=== PATIENT | female | born 1960 | race Caucasian/White ===

== ENCOUNTER → 2018-03-28 12:35 | Outpatient (CLI) | payer OTHER, SELFPAY ==
[2018-03-30 13:27] LABS: HPV Reflexed? NOT INDICATED
== END ==
PROVIDERS: Referring Provider Nurse Practitioner Adult Health; Visit Provider Nurse Practitioner Adult Health
DX: Z01.419 Encounter for gynecological examination (general) (routine) without abnormal findings (principal)
CPT/HCPCS: 88175; G0145

== ENCOUNTER → 2022-04-15 | Outpatient (CLI) | payer BC, SELFPAY ==
--- NOTE | 2022-04-15 16:59 | MRI_ITS ---
STUDY: MRI BRAIN WITH AND WITHOUT CONTRAST REASON FOR EXAM: Female, 61 years old. new occipital headache X 1 MONTH TECHNIQUE: Standardized multiplanar fat and water weighted pulse sequences were obtained. IV 19ml Clariscan was administered for the contrast portion of the examination. COMPARISON: None. FINDINGS: Normal size of the ventricles and extra-axial spaces for the patient''s age. Normal white matter tracts of the supratentorial brain. Normal bilateral basal ganglia. Normal thalami. There is no extra-axial fluid accumulation. Normal flow voids within the major intracranial circulation suggesting patency by spin echo criteria. Normal venous enhancement. There is no enhancing intra-axial or extra-axial abnormality. Normal sella turcica, pituitary gland, infundibular stalk, optic chiasm and hypothalamus. Normal tectal plate and pineal gland. Normal midbrain, john and medulla. Normal cerebellum. Normal basal cisterns. Normal bilateral temporal bones. Normal bilateral internal auditory canals. No demonstrated orbital abnormality, within the constraints of a routine brain study. Normal visualized paranasal sinuses. Normal calvarium and skull base. Normal visualized soft tissue structures. Normal visualized upper cervical spine. MRI/Brain W/WO Contrast IMPRESSION: Normal unenhanced and enhanced MRI of the brain. Electronically Signed: Lane Chin MD at 21:16 EDT ,
[2022-04-15 17:45] LABS: CREATININE FINGERSTICK < 0.9 mg/dL (0.55-1.02); EGFR FINGERSTICK > 60.0000 mL/min (>60)
== END | disposition home or self-care (01) ==
PROVIDERS: PCP Family Medicine; Visit Provider Family Medicine
DX: R51.9 Headache, unspecified (principal)
CPT/HCPCS: 70553; A9575

== ENCOUNTER → 2025-03-01 | Outpatient (CLI) | payer BC, SELFPAY ==
--- OUTSIDE RECORDS SUMMARY | 2025-03-01 20:35 | XMS RPT_ITS | CCD ---
Author Organization [facility] Care Team Providers Care Business Executive Name Role Phone KALIN GARCIA, DR CHAVEZ Primary Care Physician Nasrin PT, Keily Unavailable Unavailable Aruna Bar Attending Unavailable Aruna Bar Primary Care Unavailable LINO HARPER DO Attending Unavailable KALIN GARCIA, DR CHAVEZ Primary Care Unavailable IRAJ DOZIER, EHSAN Attending Unavailbecka BAR MD, DR CHAVEZ Primary Care Unavailable LINO HARPER DO Attending Unavailable KALIN GARCIA, DR CHAVEZ Primary Care Unavailable LINO HARPER DO Attending Unavailable KALIN GARCIA, DR CHAVEZ Primary Care Unavailable LINO HARPER DO Attending Unavailable KALIN GARCIA, DR CHAVEZ Primary Care Unavailable CINTHYA GARCIA, CARMELA Consulting Unavailable IRAJ DOZIER, EHSAN Attending Unavailbecka BAR MD, DR CHAVEZ Primary Care Unavailable Physicians, [facility] Care Provide r SELF Referring Unavailable TUYET COURTNEY Attending Unavailable KECIA DUVAL MD Attending Unavailable KALIN GARCIA, DR CHAVEZ Primary Care Unavailable MARISABEL BLANCAS MD Admitting Unavailable LINO HARPER DO Attending Unavailable JULIAN MAIER MD Primary Care Unavailable JACOB GARCIA, DR COOKIE Avendaño Attending Unavailbecka BAR MD, DR CHAVEZ Primary Care Unavailable DAPHNEY DUQUE DO Attending Unavailable KALIN GARCIA, DR CHAVEZ Primary Care Unavailable RANDY PIERCE, MS TUYET Gomez Attending Unamatty BAR MD, DR CHAVEZ Primary Care Unavailable KALIN GARCIA, DR CHAVEZ Primary Care Unavailable ALKA CUNNINGHAM III, MD Attending Unavail able KALIN GARCIA, DR CHAVEZ Primary Care Unavailable JULIA BEEBE PA-C Attending Unavailable Allergies Allergy Classification Reported Allergen(s) Allergy Type Date of Onset Reaction(s) Facility (12 sources) Contrast media; Translations: [iodinated radiocontrast agents] Drug allergy [facility] (2 sources) Iodine; Translations: [IODINE] Drug Allergy 3 Rash [facility] (2 sources) traMADol; Translations: [TRAMADOL] Drug Allergy 5 Other: See Comments [facility] Medications Current Medications Medication Drug Class(es) Dates Sig (Normalized) Sig (Original) acetaminophen 1000 mg oral tablet (3 sources) Start: 01-16-2025 take 1 dose by mouth every eight hours as needed for pain Tylenol Dose : 1,000 mg =, Oral, q8h, PRN as needed for pain, 0 Refill(s) Start Date: 01/16/25 Status: Ordered Medication Dispense Status: Completed Total Allowed Fills: 1 Fills Dispensed: 0 acetaminophen 300 mg / HYDROcodone bitartrate 5 mg oral tablet (5 sources) Opioid Agonist Start: 01-18-2025 End: 01-22-2025 take 1 tablet by mouth three times daily as needed for pain acetaminophen-hyd rocodone 300 mg-5 mg oral tablet Dose = 1 tab(s), Oral, TID, PRN for chest pain, X 4 day(s), # 12 tab(s), 0 Refill(s), Pharmacy: [facility], Acute pulmonary embolism, 167.6, cm, 01/16/25 21:17:00 EDT, Height, 97.9, kg, 01/16/25 21:17:00 EDT, Dosing Weight Start Date: 01/18/25 Stop Date: 01/22/25 Status: Ordered Quantity: 12.0 Unit: tab(s) Repeat number: 1 Indications: Other pulmonary embolism without acute cor pulmonale; Start: 01-18-2025 Williamson 325- 5 m g oral tablet Dose = 2 tab(s), Oral, q4h, PRN Pain, scale 7-10, 0 Refill(s), 97.9 Start Date: 01/18/25 Status: Ordered Medication Dispense Status: Completed Total Allowed Fills: 1 Fills Dispensed: 0 Start: 01-16-2025 acetaminophen- hydrocodone 300 mg-5 mg oral tablet Dose = 1 tab(s), Oral, q6h, PRN for pain, tab(s), 0 Refill(s), 98.9 Start Date: 01/16/25 Status: Ordered Repeat number: 1 Start: 04-29-2023 End: 05-06-2023 Williamson 325- 5 mg oral tablet Dose = 1 tab(s), Oral, q6h, PRN for pain, May take 1-2 tablets / dose, X 7 day(s), # 28 tab(s), 0 Refill(s), Pharmacy: [id number], Trimalleolar fracture of left ankle Post-op pain, 170.2, cm, 04/29/23 9:16:00 EDT, Height, 105, kg, 04/29/23 9:16:00 EDT, Dosing Weight Start Date: 04/29/23 Stop Date: 05/06/23 Status: Ordered albuterol MDI (90 mcg/inh) CFC free inhalation aerosol (1 source) Start: 01-31-2025 take 2 puff(s) by inhalation every four hours albuterol MDI (90 mcg/inh) CFC free inhalation aerosol 2 puff(s), Inhalation, q4h, # 1 EA, 0 Refill(s) Start Date: 01/31/25 Status: Ordered Medication Dispense Status: Completed Quantity: 1.0 Unit: EA Total Allowed Fills: 1 Fills Dispensed: 0 apixaban 5 mg oral tablet (2 sources) Factor Xa Inhibitor Start: 01-18-2025 End: 02-17-2025 Eliquis Starter Pack for Treatment of DVT and PE 5 mg oral tablet [10mg BID x 7days-then 5mg BID], Oral, BID, # 74 tab(s), 0 Refill(s), DVT Treatment Dosing, Pharmacy: [facility], 167.6, cm, 01/16/25 21:17:00 EDT, Height, 97.9, kg, 01/16/25 21:17:00 EDT, Dosing Weight Start Date: 01/18/25 Stop Date: 02/17/25 Status: Ordered Medication Dispense Status: Completed Quantity: 74.0 Unit: tab(s) Total Allowed Fills: 1 Fills Dispensed: 0 aspirin 81 mg oral tablet (1 source) Platelet Aggregation Inhibitor, Nonsteroidal Anti-inflammatory Drug Start: 01-16-2025 take 1 dose by mouth twice daily aspirin Dose : 81 mg =, Oral, BID, 0 Refill(s) Start Date: 01/16/25 Status: Ordered Repeat number: 1 azithromycin 250 mg oral tablet (1 source) Macrolide Antimicrobial Start: 09-12-2024 End: 09-17-2024 take 2 tablets by mouth once daily, then take 1 tablet by mouth once daily azithromycin (ZITHROMAX) 250 mg tablet Indications: Sinobronchitis Take 2 tablets by mouth once daily for 1 day, THEN 1 tablet once daily for 4 days. 6 tablet 09/12/2024 09/17/2024 Active doxycycline hyclate 100 mg oral capsule (1 source) Tetracycline-class Drug Start: 01-31-2025 End: 02-07-2025 doxycycline hyclate 100 mg oral capsule Dose : 100 mg = 1 cap(s), Oral, BID, X 7 day(s), # 14 cap(s), 0 Refill(s), 02/07/25 9:30:00 AM EDT, 100 Start Date: 01/31/25 Stop Date: 02/07/25 Status: Ordered Medication Dispense Status: Completed Quantity: 14.0 Unit: cap(s) Total Allowed Fills: 1 Fills Dispensed: 0 ibuprofen 400 mg oral tablet (2 sources) Nonsteroidal Anti-inflammatory Drug Start: 01-18-2025 End: 01-22-2025 ibuprofen 400 mg oral tablet Dose : 400 mg = 1 tab(s), Oral, BID, PRN mild to moderate pain, X 4 day(s), # 8 tab(s), 0 Refill(s), 01/22/25 11:11:00 AM EDT, Pharmacy: [facility], 167.6, cm, 01/16/25 21:17:00 EDT, Height, kg, 01/16/25 21:17:00 EDT, Dosing Weight Start Date: 01/18/25 Stop Date: 01/22/25 Status: Ordered Quantity: 8.0 Unit: tab(s) Repeat number: 1 Start: 07-23-2025 take 1 dose by mouth every eight hours as needed for pain ibuprofen Dose : 800 mg =, Oral, q8h, PRN as needed for pain, 0 Refill(s) Start Date: 01/16/25 Status: Ordered Repeat number: 1 naproxen sodium 220 mg oral tablet (10 sources) Nonsteroidal Anti-inflammatory Drug Start: 02-28-2020 Aleve 220 mg oral tablet Dose : 440 mg = 2 tab(s), Oral, BID, PRN as needed for pain Start Date: 02/28/20 Status: Ordered Repeat number: 1 ondansetron 4 mg oral tablet (7 sources) Serotonin-3 Receptor Antagonist Start: 04-29-2023 Zofran 4 mg oral tablet Dose : 4 mg = 1 tab(s), Oral, q6h, PRN Nausea/Vomiting, # 20 tab(s), 0 Refill(s) Start Date: 04/29/23 Status: Ordered Quantity: 20.0 Unit: tab(s) Repeat number: 1 pantoprazole 40 mg delayed release oral tablet (2 sources) Proton Pump Inhibitor Start: 01-18-2025 End: 02-17-2025 Protonix 40 mg oral enteric coated tablet Dose : 40 mg = 1 tab(s), Oral, qDayAC, # 30 tab(s), 0 Refill(s), Pharmacy: [facility], 167.6, cm, 01/16/25 21:17:00 EDT, Height, kg, 01/16/25 21:17:00 EDT, Dosing Weight Start Date: 01/18/25 Stop Date: 02/17/25 Status: Ordered Medication Dispense Status: Completed Quantity: 30.0 Unit: tab(s) Total Allowed Fills: 1 Fills Dispensed: 0 predniSONE 20 mg oral tablet (1 source) Start: 01-31-2025 End: 02-04-2025 predniSONE 20 mg oral tablet Dose : 60 mg = 3 tab(s), Oral, qDay, X 4 day(s), # 12 tab(s), 0 Refill(s), 02/04/25 9:30:00 AM EDT Start Date: 01/31/25 Stop Date: 02/04/25 Status: Ordered Medication Dispense Status: Completed Quantity: 12.0 Unit: tab(s) Total Allowed Fills: 1 Fills Dispensed: 0 Completed/Discontinued Medications Medication Drug Class(es) Dates Sig (Normalized) Sig (Original) 0.4 ml enoxaparin sodium 100 mg/ml prefilled syringe (1 source) Low Molecular Weight Heparin Start: 04-29-2023 End: 05-13-2023 inject 0.4 mL by subcutaneous injection once daily Lovenox 40 mg/0.4 mL injectable solution Dose : 40 mg = 0.4 mL, Subcutaneous, qDay, X 14 day(s), # 5.6 mL, 0 Refill(s), 05/13/23 10:19:00 AM EST, Pharmacy: [facility] #[id number], 170.2, cm, 04/29/23 9:16:00 EDT, Height, kg, 04/29/23 9:16:00 EDT, Dosing Weight Start Date: 04/29/23 Stop Date: 05/13/23 Status: Ordered gabapentin (4 sources) Anti-epileptic Agent Start: 01-16-2025 gabapentin Dose : 300 mg =, Oral, qHS, 0 Refill(s), 98.9 Start Date: 01/16/25 Status: Ordered Medication Dispense Status: Completed Total Allowed Fills: 1 Fills Dispensed: 0 Start: 01-16-2025 gabapentin Dos e : 300 mg =, Oral, qHS, 0 Refill(s), 98.9 Start Date: 01/16/25 Status: Ordered Repeat number: 1 Start: 07-30-2024 gabapentin (NE URONTIN) 300 mg capsule 07/30/2024 Active Problems Active Problems Problem Classification Problem Date Documented Date Episodic/Chronic Allergic reactions (1 source) Radiographic dye allergy status; Translations: [Radiographic dye allergy status] Onset: 01-16-2025 Episodic Cardiac dysrhythmias (1 source) Tachycardia, unspecified; Translations: [Tachycardia, unspecified] Onset: 01-16-2025 Episodic Headache; including migraine (1 source) Headache; Translations: [Headache, unspecified] Episodic Headache; including migraine (1 source) Headache; including migraine; Translations: [Headache, unspecified] Onset: 04-21-2022 Osteoarthritis (3 sources) Osteoarthritis of hip; Translations: [Unilateral primary osteoarthritis, right hip] Onset: 10-01-2024 Chronic Other aftercare (1 source) Follow-up orthopedic assessment; Translations: [Aftercare following joint replacement surgery] Chronic Other aftercare (1 source) Aftercare following joint replacement surgery; Translations: [Aftercare following joint replacement surgery] Onset: 10-01-2024 Chronic Other connective tissue disease (1 source) Hip joint prosthesis present; Translations: [Presence of right artificial hip joint] Chronic Other connective tissue disease (1 source) Presence of right artificial hip joint; Translations: [Presence of right artificial hip joint] Onset: 10-01-2024 Chronic Other connective tissue disease (1 source) Pain in left leg; Translations: [Pain in left leg] Onset: 01-16-2025 Episodic Other connective tissue disease (1 source) Other specified soft tissue disorders; Translations: [Other specified soft tissue disorders] Onset: 01-16-2025 Episodic Other injuries and conditions due to external causes (1 source) Personal history of (healed) traumatic fracture; Translations: [Personal history of (healed) traumatic fracture] Onset: 01-16-2025 Episodic Other lower respiratory disease (1 source) Cough; Translations: [Cough, unspecified] Onset: 01-31-2025 Episodic Other lower respiratory disease (1 source) Shortness of breath; Translations: [Shortness of breath] Onset: 01-16-2025 Episodic Other nervous system disorders (1 source) Other acute postprocedural pain; Translations: [Other acute postprocedural pain] Onset: 01-16-2025 Episodic Other upper respiratory infections (1 source) Chronic sinusitis; Translations: [Chronic sinusitis, unspecified] 09-12-2024 Chronic Pulmonary heart disease (3 sources) Other pulmonary embolism without acute cor pulmonale; Translations: [Other pulmonary embolism without acute cor pulmonale] Onset: 01-16-2025 Episodic Residual codes; unclassified (1 source) Nervousness; Translations: [Nervousness] Onset: 01-16-2025 Episodic Residual codes; unclassified (1 source) Other specified postprocedural states; Translations: [Other specified postprocedural states] Onset: 01-16-2025 Episodic Unclassified (1 source) Cough, unspecified; Translations: [Cough, unspecified] Onset: 01-31-2025 Past or Other Problems Problem Classification Problem Date Documented Da te Episodic/Chronic Fracture of lower limb (3 sources) Closed trimalleolar fracture; Translations: [Displaced trimalleolar fracture of left lower leg, initial encounter for closed fracture] Onset: 06-28-2023 Episodic Results Test Name Value Interpretation Reference Range Facility .Auto Diffon 01-31-2025 Basophil, Absolute 0.1 10 3/mcL Normal 0.0-0.3 [facility] Comment on above: Performed By: #### C BC, GFR, MDW, BMP, ADIFF, TROPHS, ANEU, PBNP #### [address] [address] Basophils/100 WBC (Bld) 0.6 % Normal 0.0-2.5 [facility] [place] Comment on above: Performed By: #### C BC, GFR, MDW, BMP, ADIFF, TROPHS, ANEU, PBNP #### [address] [address] Eosinophil, Absolute 0.2 10 3/mcL Normal 0.0-0.7 [facility] Comment on above: Performed By: #### C BC, GFR, MDW, BMP, ADIFF, TROPHS, ANEU, PBNP #### [address] [address] Eosinophils/100 WBC (Bld) 1.9 % Normal 0.0-6.0 [facility] [place] Comment on above: Performed By: #### C BC, GFR, MDW, BMP, ADIFF, TROPHS, ANEU, PBNP #### [address] [address] Lymphocyte, Absolute 1.0 10 3/mcL Normal 0.9-4.3 [facility] Comment on above: Performed By: #### C BC, GFR, MDW, BMP, ADIFF, TROPHS, ANEU, PBNP #### [address] [address] Lymphocytes/100 WBC (Bld) 11.4 % Low 20.0-40.0 [facility] [place] Comment on above: Performed By: #### C BC, GFR, MDW, BMP, ADIFF, TROPHS, ANEU, PBNP #### [address] [address] Monocyte, Absolute 0.5 10 3/mcL Normal 0.1-1.4 [facility] Comment on above: Performed By: #### C BC, GFR, MDW, BMP, ADIFF, TROPHS, ANEU, PBNP #### [address] [address] Monocytes/100 WBC (Bld) 5.8 % Normal 2.0-13.0 [facility] [place] Comment on above: Performed By: #### C BC, GFR, MDW, BMP, ADIFF, TROPHS, ANEU, PBNP #### [address] [address] Neutrophils/100 WBC (Bld) 80.3 % High 50.0-75.0 [facility] [place] Comment on above: Performed By: #### C BC, GFR, MDW, BMP, ADIFF, TROPHS, ANEU, PBNP #### [address] [address] .GFRon 01-31-2025 Estimated Glomerular Filtration Rate 76 ml/min/1.73sqm Normal [facility] [place] Comment on above: Result Comment: Stages of Chronic Kidney Disease (CKD) Stage Description eGFR(ml/min/1.73 sq.m.) CKD 1 Normal kidney function or >=90 normal kindney function with possible kidney damage (ex. Proteinuria) CKD 2 Kidney damage with mild loss 60-89 of kidney function CKD 3a Mild to moderate loss of kidney 45-59 function CKD 3b Moderate to severe loss of 30-44 of kindey function CKD 4 Severe loss of kidney function 15-29 CKD 5 Kidney failure <15 Note: (go live 2024) the eGFR calculation was updated to the 2020 CKD-EPI creatinine equation without a race factor to calculate the eGFR results. Performed By: #### C BC, GFR, MDW, BMP, ADIFF, TROPHS, ANEU, PBNP #### [address] [address] .MDWon 01-31-2025 Monocyte Distribution Width 17.22 Normal 0.00-20.00 [facility] [place] Comment on above: Result Comment: For ED adult patients suspected of sepsis, MDW<=20.0 does not rule out sepsis or risk of sepsis Performed By: #### C BC, GFR, MDW, BMP, ADIFF, TROPHS, ANEU, PBNP #### [address] [address] .NEUABSon 01-31-2025 Neutrophil, Absolute 6.8 10 3/mcL Normal 2.3-8.1 [facility] Comment on above: Performed By: #### C BC, GFR, MDW, BMP, ADIFF, TROPHS, ANEU, PBNP #### [address] [address] BMPon 01-31-2025 BUN/Creatinine Ratio 15 ratio Normal 7-27 [facility] Comment on above: Performed By: #### C BC, GFR, MDW, BMP, ADIFF, TROPHS, ANEU, PBNP #### [address] [address] Calcium [Mass/Vol] 9.5 mg/dL Normal 8.4-10.2 [facility] Comment on above: Performed By: #### C BC, GFR, MDW, BMP, ADIFF, TROPHS, ANEU, PBNP #### [address] [address] Chloride [Moles/Vol] 104 mmol/L Normal 98-107 [facility] Comment on above: Performed By: #### C BC, GFR, MDW, BMP, ADIFF, TROPHS, ANEU, PBNP #### [address] [address] CO2 [Moles/Vol] 28 mmol/L Normal 23-31 [facility] [place] Comment on above: Performed By: #### C BC, GFR, MDW, BMP, ADIFF, TROPHS, ANEU, PBNP #### [address] [address] Creatinine [Mass/Vol] 0.85 mg/dL Normal 0.51-0.95 [facility] Comment on above: Performed By: #### C BC, GFR, MDW, BMP, ADIFF, TROPHS, ANEU, PBNP #### [address] [address] Electrolyte Balance 10.0 mEq/L Normal 4.0-15.0 [facility] Comment on above: Performed By: #### C BC, GFR, MDW, BMP, ADIFF, TROPHS, ANEU, PBNP #### [address] [address] Glucose [Mass/Vol] 127 mg/dL High 80-115 [facility] Comment on above: Performed By: #### C BC, GFR, MDW, BMP, ADIFF, TROPHS, ANEU, PBNP #### [address] [address] Potassium [Moles/Vol] 3.9 mmol/L Normal 3.5-5.1 [facility] Comment on above: Performed By: #### C BC, GFR, MDW, BMP, ADIFF, TROPHS, ANEU, PBNP #### [address] [address] Sodium [Moles/Vol] 142 mmol/L Normal 136-145 [facility] Comment on above: Performed By: #### C BC, GFR, MDW, BMP, ADIFF, TROPHS, ANEU, PBNP #### [address] [address] Urea nitrogen [Mass/Vol] 13 mg/dL Normal 7-18 [facility] [place] Comment on above: Performed By: #### C BC, GFR, MDW, BMP, ADIFF, TROPHS, ANEU, PBNP #### [address] [address] CBCon 01-31-2025 Erythrocyte distribution width (RBC) [Ratio] 14.0 % Normal 11.5-15.5 [facility] [place] Comment on above: Performed By: #### C BC, GFR, MDW, BMP, ADIFF, TROPHS, ANEU, PBNP #### [address] [address] Hematocrit (Bld) [Volume fraction] 42.1 % Normal 34.0-46.0 [facility] [place] Comment on above: Performed By: #### C BC, GFR, MDW, BMP, ADIFF, TROPHS, ANEU, PBNP #### [address] [address] Hgb 14.2 G/dL Normal 12.0-16.0 [facility] [place] Comment on above: Performed By: #### C BC, GFR, MDW, BMP, ADIFF, TROPHS, ANEU, PBNP #### [address] [address] MCH (RBC) [Entitic mass] 27.0 pg Normal 27.0-33.0 [facility] [place] Comment on above: Performed By: #### C BC, GFR, MDW, BMP, ADIFF, TROPHS, ANEU, PBNP #### [address] [address] MCHC 33.6 G/dL Normal 32.0-36.0 [facility] [place] Comment on above: Performed By: #### C BC, GFR, MDW, BMP, ADIFF, TROPHS, ANEU, PBNP #### [address] [address] MCV (RBC) [Entitic vol] 80.3 fL Normal 80.0-99.0 [facility] [place] Comment on above: Performed By: #### C BC, GFR, MDW, BMP, ADIFF, TROPHS, ANEU, PBNP #### [address] [address] Platelet 288 10 3/mcL Normal 150-450 [facility] [place] Comment on above: Performed By: #### C BC, GFR, MDW, BMP, ADIFF, TROPHS, ANEU, PBNP #### [address] [address] Platelet mean volume (Bld) [Entitic vol] 7.3 fL Normal 6.6-10.5 [facility] [place] Comment on above: Performed By: #### C BC, GFR, MDW, BMP, ADIFF, TROPHS, ANEU, PBNP #### [place] [address] RBC 5.24 10 6/mcL Normal 4.10-5.30 [facility] [place] Comment on above: Performed By: #### C BC, GFR, MDW, BMP, ADIFF, TROPHS, ANEU, PBNP #### [place] [address] WBC 8.4 10 3/mcL Normal 4.5-10.8 [facility] [place] Comment on above: Performed By: #### C BC, GFR, MDW, BMP, ADIFF, TROPHS, ANEU, PBNP #### [place] [address] CVFLURVon 01-31-2025 FLU A PCR Negative Normal Negative [facility] [place] Comment on above: Performed By: #### C BC, GFR, MDW, BMP, ADIFF, TROPHS, ANEU, PBNP #### [place] [address] FLU B PCR Negative Normal Negative [facility] [place] Comment on above: Performed By: #### C BC, GFR, MDW, BMP, ADIFF, TROPHS, ANEU, PBNP #### [place] [address] RSV PCR Negative Normal Negative [facility] [place] Comment on above: Performed By: #### C BC, GFR, MDW, BMP, ADIFF, TROPHS, ANEU, PBNP #### [place] [address] SARS-CoV-2 (COVID-19) RNA MILO+probe Ql (Unsp spec) Negative Normal Negative [facility] [place] Comment on above: Result Comment: Resu lts from the Xpert Xpress CoV-2/Flu/RSV plus test should be correlated with the clinical history, epidemiological data, and other data available to the clinical evaluating the patient. Performance of the Xpert Xpress CoV-2/Flu/RSV plus test has only been established in nasopharyngeal swab specimen. Erroneous test results might occur from improper specimen collection, failure to follow the recommended sample collection, handling and storage procedures, technical error, or sample mix-up. False negative results may occur if a virus is present at a level below the analytical limit of detection. Viral nucleic acid may persist in vivo, independent of virus viability. Detection of analyte target(s) does not imply that the corresponding virus(es) are infectious or are the causative agents for clinical symptoms. Recent patient exposure to FluMist or other live attenuated influenza vaccines may cause inaccurate positive results. Performed By: #### C BC, GFR, MDW, BMP, ADIFF, TROPHS, ANEU, PBNP #### [place] [address] LABORATORYOrdered By: SYSTEM SYSTEM on 01-31-2025 Basophils (Bld) [#/Vol] 0.1 103/mcL Normal 0.0 - 0.3 10^3/mcL AO Workflow SS Basophils/100 WBC (Bld) 0.6 % Normal 0.0 - 2.5 % AO Workflow SS Calcium [Mass/Vol] 9.5 mg/dL Normal 8.4 - 10. 2 mg/dL AO ADM SS Chloride [Moles/Vol] 104 mmol/L Normal 98 - 10 7 mmol/L AO ADM SS CO2 [Moles/Vol] 28 mmol/L Normal 23 - 31 mmol/L AO ADM SS Creatinine [Mass/Vol] 0.85 mg/dL Normal 0.51 - 0.95 mg/dL AO ADM SS Electrolyte Balance 10.0 mEq/L Normal 4.0 - 15 .0 mEq/L AO ADM SS Eosinophil, Absolute 0.2 103/mcL Normal 0.0 - 0 .7 10^3/mcL AO Workflow SS Eosinophils/100 WBC (Bld) 1.9 % Normal 0.0 - 6.0 % AO Workflow SS Erythrocyte distribution width (RBC) [Ratio] 14.0 % Normal 11.5 - 15.5 % AO Workflow SS Estimated Glomerular Filtration Rate 76 ml/min/1.73sqm Invalid Interpretation Code AO Chemistry S Comment on above: Interpretive Data: Stages of Chronic Kidney Disease (CKD) Stage Description eGFR(ml/min/1.73 sq.m.) CKD 1 Normal kidney function or >=90 normal kindney function with possible kidney damage (ex. Proteinuria) CKD 2 Kidney damage with mild loss 60-89 of kidney function CKD 3a Mild to moderate loss of kidney 45-59 function CKD 3b Moderate to severe loss of 30-44 of kindey function CKD 4 Severe loss of kidney function 15-29 CKD 5 Kidney failure <15 Note: (go live 2024) the eGFR calculation was updated to the 2020 CKD-EPI creatinine equation without a race factor to calculate the eGFR results. Glucose [Mass/Vol] 127 mg/dL High 80 - 115 mg/dL AO ADM SS Hematocrit (Bld) [Volume fraction] 42.1 % Normal 34.0 - 46.0 % AO Workflow SS Hemoglobin (Bld) [Mass/Vol] 14.2 G/dL Normal 12.0 - 16.0 G/dL AO Workflow SS Lymphocytes (Bld) [#/Vol] 1.0 103/mcL Normal 0.9 - 4.3 10^3/mcL AO Workflow SS Lymphocytes/100 WBC (Bld) 11.4 % Low 20.0 - 40.0 % AO Workflow SS MCH (RBC) [Entitic mass] 27.0 pg Normal 27.0 - 33.0 pg AO Workflow SS MCHC 33.6 G/dL Normal 32.0 - 36.0 G/dL AO Workflow SS MCV (RBC) [Entitic vol] 80.3 fL Normal 80.0 - 99.0 fL AO Workflow SS Monocyte distribution width Auto (Bld) [Entitic vol] 17.22 1 Normal 0.00 - 20.00 AO Workflow SS Comment on above: Result Comment: For ED adult patients suspected of sepsis, MDW<=20.0 does not rule out sepsis or risk of sepsis Monocytes (Bld) [#/Vol] 0.5 103/mcL Normal 0.1 - 1.4 10^3/mcL AO Workflow SS Monocytes/100 WBC (Bld) 5.8 % Normal 2.0 - 13.0 % AO Workflow SS Natriuretic peptide.B prohormone N-Terminal [Mass/Vol] 52 pg/mL Normal 0 - 125 pg/mL AO ADM SS Comment on above: Interpretive Data: N T-proBNP results of less than 300 pg/mL effectively rules out acute congestive heart failure with 99% negative predictive value. Neutrophils (Bld) [#/Vol] 6.8 103/mcL Normal 2.3 - 8.1 10^3/mcL AO Workflow SS Neutrophils/100 WBC (Bld) 80.3 % High 50.0 - 75.0 % AO Workflow SS Platelet mean volume (Bld) [Entitic vol] 7.3 fL Normal 6.6 - 10.5 fL AO Workflow SS Platelets (Bld) [#/Vol] 288 103/mcL Normal 150 - 450 10^3/mcL AO Workflow SS Potassium [Moles/Vol] 3.9 mmol/L Normal 3.5 - 5.1 mmol/L AO ADM SS RBC (Bld) [#/Vol] 5.24 106/mcL Normal 4.10 - 5.3 0 10^6/mcL AO Workflow SS Sodium [Moles/Vol] 142 mmol/L Normal 136 - 145 mmol/L AO ADM SS Troponin I.cardiac DL <= 0.01 ng/mL [Mass/Vol] 5 ng/L Normal 0 - 51 ng/L AO ADM SS Comment on above: Interpretive Data: H igh Sensitive Troponin I Reference Ranges: Female: 0-51 ng/L Male: 0-76 ng/L Testing performed on [employer] using a homogeneous sandwich chemiluminescent immunoassay based on [employer] technology. Urea nitrogen [Mass/Vol] 13 mg/dL Normal 7 - 18 mg/dL AO ADM SS Urea nitrogen/Creatinine [Mass ratio] 15 ratio Normal 7 - 27 ratio AO ADM SS WBC (Bld) [#/Vol] 8.4 103/mcL Normal 4.5 - 10.8 10^3/mcL AO Workflow SS LABORATORYOrdered By: Farhat Hinton on 01-31-2025 FLUAV RNA MILO+probe Ql (Resp) Negative (01/31/25 8:07 AM) Normal Negative AO Auto Urine SS FLUBV RNA MILO+probe Ql (Resp) Negative (01/31/25 8:07 AM) Normal Negative AO Auto Urine SS RSV RNA MILO+probe Ql (Resp) Negative (01/31/25 8:07 AM) Normal Negative AO Auto Urine SS SARS-CoV-2 (COVID-19) RNA MILO+probe Ql (Resp) Negative 5 (01/31/25 8:07 AM) Normal Negative AO Auto Urine SS Comment on above: Interpretive Data: R esults from the Xpert Xpress CoV-2/Flu/RSV plus test should be correlated with the clinical history, epidemiological data, and other data available to the clinical evaluating the patient. Performance of the Xpert Xpress CoV-2/Flu/RSV plus test has only been established in nasopharyngeal swab specimen. Erroneous test results might occur from improper specimen collection, failure to follow the recommended sample collection, handling and storage procedures, technical error, or sample mix-up. False negative results may occur if a virus is present at a level below the analytical limit of detection. Viral nucleic acid may persist in vivo, independent of virus viability. Detection of analyte target(s) does not imply that the corresponding virus(es) are infectious or are the causative agents for clinical symptoms. Recent patient exposure to FluMist or other live attenuated influenza vaccines may cause inaccurate positive results. PBNPon 01-31-2025 Natriuretic peptide B (Bld) [Mass/Vol] 52 pg/mL Normal 0-125 [facility] [place] Comment on above: Result Comment: NT-p roBNP results of less than 300 pg/mL effectively rules out acute congestive heart failure with 99% negative predictive value. Performed By: #### C JASEN SILVA, BRANDON, TABATHA, REJI, TROPHS, ANEU, PBNP #### [address] [address] [facility] 01-31-2025 High Sensitivity Troponin I 5 ng/L Normal 0-51 [facility] [place] Comment on above: Result Comment: High Sensitive Troponin I Reference Ranges: Female: 0-51 ng/L Male: 0-76 ng/L Testing performed on [employer] using a homogeneous sandwich chemiluminescent immunoassay based on [employer] technology. Performed By: #### C JASEN SILVA, BRANDON, TABATHA, REJI, TROPHS, ANEU, PBNP #### [address] [address] XR CHEST 1 VIEWon 01-31-2025 XR CHEST 1 VIEW ORIGINAL EXAMINATION: ONE XRAY VIEW OF THE CHEST01/31/2025 8:05 am XR Chest portable upright COMPARISON: None HISTORY: ORDERING SYSTEM PROVIDED HISTORY: Reason for Exam: cough, r/o PNA, FINDINGS: No suspicious nodule, acute infiltrate, consolidation,mass, pneumothorax, pleural fluid, or vascular congestion is seen. Heart size and mediastinal contours are within normal limits for age and projection. No acute skeletal abnormality. IMPRESSION: No acute cardiopulmonary process. Interpreted by: Jaron Serrato MD Preliminary Report By: Jaron Serrato MD Electronically signed By Jaron Serrato MD Dictated Date: 01/31/2025 8:21:30 AM Prelim Date: 01/31/2025 8:21:49 AM Sign Date: 01/31/2025 8:21:49 AM Ordering Provider: DAPHNEY Arora [facility] [place] .Auto Diffon 01-18-2025 Basophil, Absolute 0.0 10 3/mcL Normal 0.0-0.3 [facility] Comment on above: Performed By: #### C BC, BMP, ANEU, ADIFF, GFR #### [address] [address] Basophils/100 WBC (Bld) 0.7 % Normal 0.0-2.5 [facility] Comment on above: Performed By: #### C BC, BMP, ANEU, ADIFF, GFR #### [address] [address] Eosinophil, Absolute 0.1 10 3/mcL Normal 0.0-0.7 [facility] Comment on above: Performed By: #### C BC, BMP, ANEU, ADIFF, GFR #### [address] [address] Eosinophils/100 WBC (Bld) 1.8 % Normal 0.0-6.0 [facility] Comment on above: Performed By: #### C BC, BMP, ANEU, ADIFF, GFR #### [address] [address] Lymphocyte, Absolute 1.6 10 3/mcL Normal 0.9-4.3 [facility] Comment on above: Performed By: #### C BC, BMP, ANEU, ADIFF, GFR #### [address] [address] Lymphocytes/100 WBC (Bld) 24.3 % Normal 20.0-40.0 [facility] Comment on above: Performed By: #### C BC, BMP, ANEU, ADIFF, GFR #### [address] [address] Monocyte, Absolute 0.6 10 3/mcL Normal 0.1-1.4 [facility] Comment on above: Performed By: #### C BC, BMP, ANEU, ADIFF, GFR #### [address] [address] Monocytes/100 WBC (Bld) 9.4 % Normal 2.0-13.0 [facility] Comment on above: Performed By: #### C BC, BMP, ANEU, ADIFF, GFR #### [address] [address] Neutrophils/100 WBC (Bld) 63.8 % Normal 50.0-75.0 [facility] Comment on above: Performed By: #### C BC, BMP, ANEU, ADIFF, GFR #### [address] [address] .GFRon 01-18-2025 Estimated Glomerular Filtration Rate 73 ml/min/1.73sqm Normal [facility] Comment on above: Result Comment: Stages of Chronic Kidney Disease (CKD) Stage Description eGFR(ml/min/1.73 sq.m.) CKD 1 Normal kidney function or >=90 normal kindney function with possible kidney damage (ex. Proteinuria) CKD 2 Kidney damage with mild loss 60-89 of kidney function CKD 3a Mild to moderate loss of kidney 45-59 function CKD 3b Moderate to severe loss of 30-44 of kindey function CKD 4 Severe loss of kidney function 15-29 CKD 5 Kidney failure <15 Note: (go live 2024) the eGFR calculation was updated to the 2020 CKD-EPI creatinine equation without a race factor to calculate the eGFR results. Performed By: #### C BC, BMP, ANEU, ADIFF, GFR #### [address] [address] .NEUABSon 01-18-2025 Neutrophil, Absolute 4.1 10 3/mcL Normal 2.3-8.1 [facility] Comment on above: Performed By: #### C BC, BMP, ANEU, ADIFF, GFR #### [address] [address] BMPon 01-18-2025 BUN/Creatinine Ratio 21.6 ratio Normal 10.0-22.0 [facility] Comment on above: Performed By: #### C BC, BMP, ANEU, ADIFF, GFR #### [address] [address] Calcium [Mass/Vol] 9.4 mg/dL Normal 8.7-10.4 [facility] Comment on above: Performed By: #### C BC, BMP, ANEU, ADIFF, GFR #### [address] [address] Chloride [Moles/Vol] 104 mmol/L Normal 98-110 [facility] Comment on above: Performed By: #### C BC, BMP, ANEU, ADIFF, GFR #### [address] [address] CO2 [Moles/Vol] 29 mmol/L Normal 22-32 [facility] Comment on above: Performed By: #### C BC, BMP, ANEU, ADIFF, GFR #### [address] [address] Creatinine [Mass/Vol] 0.88 mg/dL Normal 0.50-1.20 [facility] Comment on above: Result Comment: Test ing performed on [email or web address] analyzer using enzymatic creatinine methodology. Performed By: #### C BC, BMP, ANEU, ADIFF, GFR #### [address] [address] Electrolyte Balance 10.0 mEq/L Normal 4.0-15.0 [facility] Comment on above: Performed By: #### C BC, BMP, ANEU, ADIFF, GFR #### [address] [address] Glucose [Mass/Vol] 90 mg/dL Normal 82-115 [facility] Comment on above: Performed By: #### C BC, BMP, ANEU, ADIFF, GFR #### [address] [address] Potassium [Moles/Vol] 4.1 mmol/L Normal 3.5-5.0 [facility] Comment on above: Performed By: #### C BC, BMP, ANEU, ADIFF, GFR #### [address] [address] Sodium [Moles/Vol] 143 mmol/L Normal 136-145 [facility] Comment on above: Performed By: #### C BC, BMP, ANEU, ADIFF, GFR #### [place] [address] Urea nitrogen [Mass/Vol] 19.0 mg/dL Normal 8.0-22.0 [facility] Comment on above: Performed By: #### C BC, BMP, ANEU, ADIFF, GFR #### [place] [address] CBCon 01-18-2025 Erythrocyte distribution width (RBC) [Ratio] 14.2 % Normal 11.5-15.5 [facility] Comment on above: Performed By: #### C BC, BMP, ANEU, ADIFF, GFR #### [place] [address] Hematocrit (Bld) [Volume fraction] 40.5 % Normal 34.0-46.0 [facility] Comment on above: Performed By: #### C BC, BMP, ANEU, ADIFF, GFR #### [place] [address] Hgb 13.8 G/dL Normal 12.0-16.0 [facility] Comment on above: Performed By: #### C BC, BMP, ANEU, ADIFF, GFR #### [place] [address] MCH (RBC) [Entitic mass] 27.5 pg Normal 27.0-33.0 [facility] Comment on above: Performed By: #### C BC, BMP, ANEU, ADIFF, GFR #### [place] [address] MCHC 34.0 G/dL Normal 32.0-36.0 [facility] Comment on above: Performed By: #### C BC, BMP, ANEU, ADIFF, GFR #### [place] [address] MCV (RBC) [Entitic vol] 80.9 fL Normal 80.0-99.0 [facility] Comment on above: Performed By: #### C BC, BMP, ANEU, ADIFF, GFR #### [address] [address] Platelet 244 10 3/mcL Normal 150-450 [facility] Comment on above: Performed By: #### C BC, BMP, ANEU, ADIFF, GFR #### [address] [address] Platelet mean volume (Bld) [Entitic vol] 7.8 fL Normal 6.6-10.5 [facility] Comment on above: Performed By: #### C BC, BMP, ANEU, ADIFF, GFR #### [address] [address] RBC 5.01 10 6/mcL Normal 4.10-5.30 [facility] Comment on above: Performed By: #### C BC, BMP, ANEU, ADIFF, GFR #### [address] [address] WBC 6.4 10 3/mcL Normal 4.5-10.8 [facility] Comment on above: Performed By: #### C BC, BMP, ANEU, ADIFF, GFR #### [address] [address] LABORATORYOrdered By: SYSTEM SYSTEM on 01-18-2025 Basophils (Bld) [#/Vol] 0.0 103/mcL Normal 0.0 - 0.3 10^3/mcL Workflow SS Basophils/100 WBC (Bld) 0.7 % Normal 0.0 - 2.5 % Workflow SS Calcium [Mass/Vol] 9.4 mg/dL Normal 8.7 - 10. 4 mg/dL ADM SS Chloride [Moles/Vol] 104 mmol/L Normal 98 - 11 0 mEq/L ADM SS CO2 [Moles/Vol] 29 mmol/L Normal 22 - 32 mEq/L ADM SS Creatinine [Mass/Vol] 0.88 mg/dL Normal 0.50 - 1.20 mg/dL ADM SS Comment on above: Interpretive Data: T esting performed on [email or web address] analyzer using enzymatic creatinine methodology. Electrolyte Balance 10.0 mEq/L Normal 4.0 - 15 .0 mEq/L ADM SS Eosinophils (Bld) [#/Vol] 0.1 103/mcL Normal 0.0 - 0.7 10^3/mcL AH Workflow SS Eosinophils/100 WBC (Bld) 1.8 % Normal 0.0 - 6.0 % AH Workflow SS Erythrocyte distribution width (RBC) [Ratio] 14.2 % Normal 11.5 - 15.5 % AH Workflow SS Estimated Glomerular Filtration Rate 73 ml/min/1.73sqm Invalid Interpretation Code Chemistry S Comment on above: Interpretive Data: Stages of Chronic Kidney Disease (CKD) Stage Description eGFR(ml/min/1.73 sq.m.) CKD 1 Normal kidney function or >=90 normal kindney function with possible kidney damage (ex. Proteinuria) CKD 2 Kidney damage with mild loss 60-89 of kidney function CKD 3a Mild to moderate loss of kidney 45-59 function CKD 3b Moderate to severe loss of 30-44 of kindey function CKD 4 Severe loss of kidney function 15-29 CKD 5 Kidney failure <15 Note: (go live 2024) the eGFR calculation was updated to the 2020 CKD-EPI creatinine equation without a race factor to calculate the eGFR results. Glucose [Mass/Vol] 90 mg/dL Normal 82 - 115 mg/dL ADM SS Hematocrit (Bld) [Volume fraction] 40.5 % Normal 34.0 - 46.0 % AH Workflow SS Hemoglobin (Bld) [Mass/Vol] 13.8 G/dL Normal 12.0 - 16.0 G/dL AH Workflow SS Lymphocytes (Bld) [#/Vol] 1.6 103/mcL Normal 0.9 - 4.3 10^3/mcL AH Workflow SS Lymphocytes/100 WBC (Bld) 24.3 % Normal 20.0 - 40.0 % AH Workflow SS MCH (RBC) [Entitic mass] 27.5 pg Normal 27.0 - 33.0 pg AH Workflow SS MCHC 34.0 G/dL Normal 32.0 - 36.0 G/dL AH Workflow SS MCV (RBC) [Entitic vol] 80.9 fL Normal 80.0 - 99.0 fL AH Workflow SS Monocytes (Bld) [#/Vol] 0.6 103/mcL Normal 0.1 - 1.4 10^3/mcL AH Workflow SS Monocytes/100 WBC (Bld) 9.4 % Normal 2.0 - 13.0 % AH Workflow SS Neutrophils (Bld) [#/Vol] 4.1 103/mcL Normal 2.3 - 8.1 10^3/mcL AH Workflow SS Neutrophils/100 WBC (Bld) 63.8 % Normal 50.0 - 75.0 % Workflow SS Platelet mean volume (Bld) [Entitic vol] 7.8 fL Normal 6.6 - 10.5 fL Workflow SS Platelets (Bld) [#/Vol] 244 103/mcL Normal 150 - 450 10^3/mcL AH Workflow SS Potassium [Moles/Vol] 4.1 mmol/L Normal 3.5 - 5.0 mEq/L ADM SS RBC (Bld) [#/Vol] 5.01 106/mcL Normal 4.10 - 5.3 0 10^6/mcL Workflow SS Sodium [Moles/Vol] 143 mmol/L Normal 136 - 145 mEq/L ADM SS Urea nitrogen [Mass/Vol] 19.0 mg/dL Normal 8.0 - 22.0 mg/dL ADM SS Urea nitrogen/Creatinine [Mass ratio] 21.6 ratio Normal 10.0 - 22.0 ratio ADM SS WBC (Bld) [#/Vol] 6.4 103/mcL Normal 4.5 - 10.8 10^3/mcL Workflow SS .Auto Diffon 01-17-2025 Basophil, Absolute 0.1 10 3/mcL Normal 0.0-0.3 [facility] Comment on above: Performed By: #### A CLARA, ADIFF, BMP, GFR, CBC #### [address] [address] Basophils/100 WBC (Bld) 0.7 % Normal 0.0-2.5 [facility] Comment on above: Performed By: #### A CLARA, ADIFF, BMP, GFR, CBC #### [address] [address] Eosinophil, Absolute 0.1 10 3/mcL Normal 0.0-0.7 [facility] Comment on above: Performed By: #### A CLARA, ADIFF, BMP, GFR, CBC #### [address] [address] Eosinophils/100 WBC (Bld) 1.1 % Normal 0.0-6.0 [facility] Comment on above: Performed By: #### A CLARA, ADIFF, BMP, GFR, CBC #### [address] [address] Lymphocyte, Absolute 1.6 10 3/mcL Normal 0.9-4.3 [facility] Comment on above: Performed By: #### A CLARA, ADIFF, BMP, GFR, CBC #### [address] [address] Lymphocytes/100 WBC (Bld) 20.3 % Normal 20.0-40.0 [facility] Comment on above: Performed By: #### A CLARA, ADIFF, BMP, GFR, CBC #### [address] [address] Monocyte, Absolute 0.6 10 3/mcL Normal 0.1-1.4 [facility] Comment on above: Performed By: #### A CLARA, ADIFF, BMP, GFR, CBC #### [address] [address] Monocytes/100 WBC (Bld) 8.0 % Normal 2.0-13.0 [facility] Comment on above: Performed By: #### A CLARA, ADIFF, BMP, GFR, CBC #### [address] [address] Neutrophils/100 WBC (Bld) 69.9 % Normal 50.0-75.0 [facility] Comment on above: Performed By: #### A CLARA, ADIFF, BMP, GFR, CBC #### [address] [address] .GFRon 01-17-2025 Estimated Glomerular Filtration Rate 70 ml/min/1.73sqm Normal [facility] Comment on above: Result Comment: Stages of Chronic Kidney Disease (CKD) Stage Description eGFR(ml/min/1.73 sq.m.) CKD 1 Normal kidney function or >=90 normal kindney function with possible kidney damage (ex. Proteinuria) CKD 2 Kidney damage with mild loss 60-89 of kidney function CKD 3a Mild to moderate loss of kidney 45-59 function CKD 3b Moderate to severe loss of 30-44 of kindey function CKD 4 Severe loss of kidney function 15-29 CKD 5 Kidney failure <15 Note: (go live 2024) the eGFR calculation was updated to the 2020 CKD-EPI creatinine equation without a race factor to calculate the eGFR results. Performed By: #### A CLARA, ADIFF, BMP, GFR, CBC #### [address] [address] .NEUABSon 01-17-2025 Neutrophil, Absolute 5.6 10 3/mcL Normal 2.3-8.1 [facility] Comment on above: Performed By: #### A CLARA, ADIFF, BMP, GFR, CBC #### [address] [address] [facility] BUN/Creatinine Ratio 17.6 ratio Normal 10.0-22.0 [facility] Comment on above: Performed By: #### A CLARA, ADIFF, BMP, GFR, CBC #### [address] [address] Calcium [Mass/Vol] 9.0 mg/dL Normal 8.7-10.4 [facility] Comment on above: Performed By: #### A CLARA, ADIFF, BMP, GFR, CBC #### [place] [address] Chloride [Moles/Vol] 104 mmol/L Normal 98-110 [facility] Comment on above: Performed By: #### A CLARA, ADIFF, BMP, GFR, CBC #### [place] [id number] CO2 [Moles/Vol] 27 mmol/L Normal 22-32 [facility] Comment on above: Performed By: #### A CLARA, ADIFF, BMP, GFR, CBC #### [address] [address] Creatinine [Mass/Vol] 0.91 mg/dL Normal 0.50-1.20 [facility] Comment on above: Result Comment: Test ing performed on [email or web address] analyzer using enzymatic creatinine methodology. Performed By: #### A CLARA, ADIFF, BMP, GFR, CBC #### [address] [address] Electrolyte Balance 10.0 mEq/L Normal 4.0-15.0 [facility] Comment on above: Performed By: #### A CLARA, ADIFF, BMP, GFR, CBC #### [address] [address] Glucose [Mass/Vol] 107 mg/dL Normal 82-115 [facility] Comment on above: Performed By: #### A CLARA, ADIFF, BMP, GFR, CBC #### [address] [address] Potassium [Moles/Vol] 4.1 mmol/L Normal 3.5-5.0 [facility] Comment on above: Result Comment: Spec imen slightly hemolyzed. Performed By: #### A CLARA, ADIFF, BMP, GFR, CBC #### [address] [address] Sodium [Moles/Vol] 141 mmol/L Normal 136-145 [facility] Comment on above: Performed By: #### A CLARA, ADIFF, BMP, GFR, CBC #### [place] [id number] Urea nitrogen [Mass/Vol] 16.0 mg/dL Normal 8.0-22.0 [facility] Comment on above: Performed By: #### A CLARA, ADIFF, BMP, GFR, CBC #### [address] [address] CBCon 01-17-2025 Erythrocyte distribution width (RBC) [Ratio] 14.5 % Normal 11.5-15.5 [facility] Comment on above: Performed By: #### A CLARA, ADIFF, BMP, GFR, CBC #### [address] [address] Hematocrit (Bld) [Volume fraction] 40.1 % Normal 34.0-46.0 [facility] Comment on above: Performed By: #### A CLARA, ADIFF, BMP, GFR, CBC #### [address] [address] Hgb 13.5 G/dL Normal 12.0-16.0 [facility] Comment on above: Performed By: #### A CLARA, ADIFF, BMP, GFR, CBC #### [address] [address] MCH (RBC) [Entitic mass] 27.3 pg Normal 27.0-33.0 [facility] Comment on above: Performed By: #### A CLARA, ADIFF, BMP, GFR, CBC #### [place] [id number] MCHC 33.7 G/dL Normal 32.0-36.0 [facility] Comment on above: Performed By: #### A CLARA, ADIFF, BMP, GFR, CBC #### [place] [address] MCV (RBC) [Entitic vol] 81.0 fL Normal 80.0-99.0 [facility] Comment on above: Performed By: #### A CLARA, ADIFF, BMP, GFR, CBC #### [place] [address] Platelet 268 10 3/mcL Normal 150-450 [facility] Comment on above: Performed By: #### A CLARA, ADIFF, BMP, GFR, CBC #### [place] [address] Platelet mean volume (Bld) [Entitic vol] 7.9 fL Normal 6.6-10.5 [facility] Comment on above: Performed By: #### A CLARA, ADIFF, BMP, GFR, CBC #### [place] [id number] RBC 4.95 10 6/mcL Normal 4.10-5.30 [facility] Comment on above: Performed By: #### A CLARA, ADIFF, BMP, GFR, CBC #### [place] [id number] WBC 8.0 10 3/mcL Normal 4.5-10.8 [facility] Comment on above: Performed By: #### A CLARA, ADIFF, BMP, GFR, CBC #### [place] [address] LABORATORYOrdered By: SYSTEM SYSTEM on 01-17-2025 Basophils (Bld) [#/Vol] 0.1 103/mcL Normal 0.0 - 0.3 10^3/mcL AH Workflow SS Basophils/100 WBC (Bld) 0.7 % Normal 0.0 - 2.5 % Workflow SS Calcium [Mass/Vol] 9.0 mg/dL Normal 8.7 - 10. 4 mg/dL ADM SS Chloride [Moles/Vol] 104 mmol/L Normal 98 - 11 0 mEq/L ADM SS CO2 [Moles/Vol] 27 mmol/L Normal 22 - 32 mEq/L ADM SS Creatinine [Mass/Vol] 0.91 mg/dL Normal 0.50 - 1.20 mg/dL ADM SS Comment on above: Interpretive Data: T esting performed on [email or web address] analyzer using enzymatic creatinine methodology. Electrolyte Balance 10.0 mEq/L Normal 4.0 - 15 .0 mEq/L ADM SS Eosinophils (Bld) [#/Vol] 0.1 103/mcL Normal 0.0 - 0.7 10^3/mcL Workflow SS Eosinophils/100 WBC (Bld) 1.1 % Normal 0.0 - 6.0 % Workflow SS Erythrocyte distribution width (RBC) [Ratio] 14.5 % Normal 11.5 - 15.5 % Workflow SS Estimated Glomerular Filtration Rate 70 ml/min/1.73sqm Invalid Interpretation Code Chemistry S Comment on above: Interpretive Data: Stages of Chronic Kidney Disease (CKD) Stage Description eGFR(ml/min/1.73 sq.m.) CKD 1 Normal kidney function or >=90 normal kindney function with possible kidney damage (ex. Proteinuria) CKD 2 Kidney damage with mild loss 60-89 of kidney function CKD 3a Mild to moderate loss of kidney 45-59 function CKD 3b Moderate to severe loss of 30-44 of kindey function CKD 4 Severe loss of kidney function 15-29 CKD 5 Kidney failure <15 Note: (go live 2024) the eGFR calculation was updated to the 2020 CKD-EPI creatinine equation without a race factor to calculate the eGFR results. Glucose [Mass/Vol] 107 mg/dL Normal 82 - 115 mg/dL ADM SS Hematocrit (Bld) [Volume fraction] 40.1 % Normal 34.0 - 46.0 % Workflow SS Hemoglobin (Bld) [Mass/Vol] 13.5 G/dL Normal 12.0 - 16.0 G/dL Workflow SS Lymphocytes (Bld) [#/Vol] 1.6 103/mcL Normal 0.9 - 4.3 10^3/mcL AH Workflow SS Lymphocytes/100 WBC (Bld) 20.3 % Normal 20.0 - 40.0 % AH Workflow SS MCH (RBC) [Entitic mass] 27.3 pg Normal 27.0 - 33.0 pg AH Workflow SS MCHC 33.7 G/dL Normal 32.0 - 36.0 G/dL AH Workflow SS MCV (RBC) [Entitic vol] 81.0 fL Normal 80.0 - 99.0 fL AH Workflow SS Monocytes (Bld) [#/Vol] 0.6 103/mcL Normal 0.1 - 1.4 10^3/mcL AH Workflow SS Monocytes/100 WBC (Bld) 8.0 % Normal 2.0 - 13.0 % AH Workflow SS Neutrophils (Bld) [#/Vol] 5.6 103/mcL Normal 2.3 - 8.1 10^3/mcL AH Workflow SS Neutrophils/100 WBC (Bld) 69.9 % Normal 50.0 - 75.0 % AH Workflow SS Platelet mean volume (Bld) [Entitic vol] 7.9 fL Normal 6.6 - 10.5 fL AH Workflow SS Platelets (Bld) [#/Vol] 268 103/mcL Normal 150 - 450 10^3/mcL AH Workflow SS Potassium [Moles/Vol] 4.1 mmol/L Normal 3.5 - 5.0 mEq/L AH ADM SS Comment on above: Result Comment: Spec imen slightly hemolyzed. RBC (Bld) [#/Vol] 4.95 106/mcL Normal 4.10 - 5.3 0 10^6/mcL AH Workflow SS Sodium [Moles/Vol] 141 mmol/L Normal 136 - 145 mEq/L AH ADM SS Urea nitrogen [Mass/Vol] 16.0 mg/dL Normal 8.0 - 22.0 mg/dL AH ADM SS Urea nitrogen/Creatinine [Mass ratio] 17.6 ratio Normal 10.0 - 22.0 ratio AH ADM SS WBC (Bld) [#/Vol] 8.0 103/mcL Normal 4.5 - 10.8 10^3/mcL AH Workflow SS .Auto Diffon 01-16-2025 Basophil, Absolute 0.0 10 3/mcL Normal 0.0-0.3 [facility] Comment on above: Performed By: #### C BC, GFR, MDW, BMP, ADIFF, TROPHS, ANEU, PBNP #### [address] [address] Basophils/100 WBC (Bld) 0.5 % Normal 0.0-2.5 [facility] [place] Comment on above: Performed By: #### C BC, GFR, MDW, BMP, ADIFF, TROPHS, ANEU, PBNP #### [address] [address] Eosinophil, Absolute 0.2 10 3/mcL Normal 0.0-0.7 [facility] Comment on above: Performed By: #### C BC, GFR, MDW, BMP, ADIFF, TROPHS, ANEU, PBNP #### [address] [address] Eosinophils/100 WBC (Bld) 2.0 % Normal 0.0-6.0 [facility] [place] Comment on above: Performed By: #### C BC, GFR, MDW, BMP, ADIFF, TROPHS, ANEU, PBNP #### [address] [address] Lymphocyte, Absolute 1.4 10 3/mcL Normal 0.9-4.3 [facility] Comment on above: Performed By: #### C BC, GFR, MDW, BMP, ADIFF, TROPHS, ANEU, PBNP #### [address] [address] Lymphocytes/100 WBC (Bld) 16.6 % Low 20.0-40.0 [facility] [place] Comment on above: Performed By: #### C BC, GFR, MDW, BMP, ADIFF, TROPHS, ANEU, PBNP #### [address] [address] Monocyte, Absolute 0.8 10 3/mcL Normal 0.1-1.4 [facility] Comment on above: Performed By: #### C BC, GFR, MDW, BMP, ADIFF, TROPHS, ANEU, PBNP #### [address] [address] Monocytes/100 WBC (Bld) 9.2 % Normal 2.0-13.0 [facility] [place] Comment on above: Performed By: #### C BC, GFR, MDW, BMP, ADIFF, TROPHS, ANEU, PBNP #### [address] [address] Neutrophils/100 WBC (Bld) 71.7 % Normal 50.0-75.0 [facility] [place] Comment on above: Performed By: #### C BC, GFR, MDW, BMP, ADIFF, TROPHS, ANEU, PBNP #### [address] [address] .GFRon 01-16-2025 Estimated Glomerular Filtration Rate 74 ml/min/1.73sqm Normal [facility] [place] Comment on above: Result Comment: Stages of Chronic Kidney Disease (CKD) Stage Description eGFR(ml/min/1.73 sq.m.) CKD 1 Normal kidney function or >=90 normal kindney function with possible kidney damage (ex. Proteinuria) CKD 2 Kidney damage with mild loss 60-89 of kidney function CKD 3a Mild to moderate loss of kidney 45-59 function CKD 3b Moderate to severe loss of 30-44 of kindey function CKD 4 Severe loss of kidney function 15-29 CKD 5 Kidney failure <15 Note: (go live 2024) the eGFR calculation was updated to the 2020 CKD-EPI creatinine equation without a race factor to calculate the eGFR results. Performed By: #### C BC, GFR, MDW, BMP, ADIFF, TROPHS, ANEU, PBNP #### [address] [address] .MDWon 01-16-2025 Monocyte Distribution Width 18.40 Normal 0.00-20.00 [facility] [place] Comment on above: Result Comment: For ED adult patients suspected of sepsis, MDW<=20.0 does not rule out sepsis or risk of sepsis Performed By: #### C BC, GFR, MDW, BMP, ADIFF, TROPHS, ANEU, PBNP #### [address] [address] .NEUABSon 01-16-2025 Neutrophil, Absolute 6.0 10 3/mcL Normal 2.3-8.1 [facility] Comment on above: Performed By: #### C BC, GFR, MDW, BMP, ADIFF, TROPHS, ANEU, PBNP #### [address] [address] APTTon 01-16-2025 aPTT Coag (Bld) [Time] 30.2 s Normal 25.0-35.0 [facility] [place] Comment on above: Result Comment: For Heparin anticoagulation therapy, the recommended therapeutic range is: 45.4-75.9 seconds. Patients on heparin therapy may have an extreme result. Performed By: #### C BC, GFR, MDW, BMP, ADIFF, TROPHS, ANEU, PBNP #### [address] [address] BMPon 01-16-2025 BUN/Creatinine Ratio 21 ratio Normal 7-27 [facility] Comment on above: Performed By: #### C BC, GFR, MDW, BMP, ADIFF, TROPHS, ANEU, PBNP #### [address] [address] Calcium [Mass/Vol] 9.9 mg/dL Normal 8.4-10.2 [facility] Comment on above: Performed By: #### C BC, GFR, MDW, BMP, ADIFF, TROPHS, ANEU, PBNP #### [address] [address] Chloride [Moles/Vol] 105 mmol/L Normal 98-107 [facility] Comment on above: Performed By: #### C BC, GFR, MDW, BMP, ADIFF, TROPHS, ANEU, PBNP #### [address] [address] CO2 [Moles/Vol] 28 mmol/L Normal 23-31 [facility] [place] Comment on above: Performed By: #### C BC, GFR, MDW, BMP, ADIFF, TROPHS, ANEU, PBNP #### [address] [address] Creatinine [Mass/Vol] 0.87 mg/dL Normal 0.51-0.95 [facility] Comment on above: Performed By: #### C BC, GFR, MDW, BMP, ADIFF, TROPHS, ANEU, PBNP #### [address] [address] Electrolyte Balance 9.0 mEq/L Normal 4.0-15.0 [facility] Comment on above: Performed By: #### C BC, GFR, MDW, BMP, ADIFF, TROPHS, ANEU, PBNP #### [address] [address] Glucose [Mass/Vol] 108 mg/dL Normal 80-115 [facility] Comment on above: Performed By: #### C BC, GFR, MDW, BMP, ADIFF, TROPHS, ANEU, PBNP #### [address] [address] Potassium [Moles/Vol] 4.0 mmol/L Normal 3.5-5.1 [facility] Comment on above: Performed By: #### C BC, GFR, MDW, BMP, ADIFF, TROPHS, ANEU, PBNP #### [address] [address] Sodium [Moles/Vol] 142 mmol/L Normal 136-145 [facility] Comment on above: Performed By: #### C BC, GFR, MDW, BMP, ADIFF, TROPHS, ANEU, PBNP #### [address] [address] Urea nitrogen [Mass/Vol] 18 mg/dL Normal 7-18 [facility] [place] Comment on above: Performed By: #### C BC, GFR, MDW, BMP, ADIFF, TROPHS, ANEU, PBNP #### [address] [address] CBCon 01-16-2025 Erythrocyte distribution width (RBC) [Ratio] 14.1 % Normal 11.5-15.5 [facility] [place] Comment on above: Performed By: #### C BC, GFR, MDW, BMP, ADIFF, TROPHS, ANEU, PBNP #### [place] [address] Hematocrit (Bld) [Volume fraction] 45.2 % Normal 34.0-46.0 [facility] [place] Comment on above: Performed By: #### C BC, GFR, MDW, BMP, ADIFF, TROPHS, ANEU, PBNP #### [place] [address] Hgb 15.2 G/dL Normal 12.0-16.0 [facility] [place] Comment on above: Performed By: #### C BC, GFR, MDW, BMP, ADIFF, TROPHS, ANEU, PBNP #### [place] [address] MCH (RBC) [Entitic mass] 26.7 pg Low 27.0-33.0 [facility] [place] Comment on above: Performed By: #### C BC, GFR, MDW, BMP, ADIFF, TROPHS, ANEU, PBNP #### [place] [address] MCHC 33.6 G/dL Normal 32.0-36.0 [facility] [place] Comment on above: Performed By: #### C BC, GFR, MDW, BMP, ADIFF, TROPHS, ANEU, PBNP #### [place] [address] MCV (RBC) [Entitic vol] 79.6 fL Low 80.0-99.0 [facility] [place] Comment on above: Performed By: #### C BC, GFR, MDW, BMP, ADIFF, TROPHS, ANEU, PBNP #### [place] [address] Platelet 288 10 3/mcL Normal 150-450 [facility] [place] Comment on above: Performed By: #### C BC, GFR, MDW, BMP, ADIFF, TROPHS, ANEU, PBNP #### [place] [address] Platelet mean volume (Bld) [Entitic vol] 7.9 fL Normal 6.6-10.5 [facility] [place] Comment on above: Performed By: #### C BC, GFR, MDW, BMP, ADIFF, TROPHS, ANEU, PBNP #### [place] [address] [place], [place] [address] RBC 5.67 10 6/mcL High 4.10-5.30 [facility] [place] Comment on above: Performed By: #### C BC, GFR, MDW, BMP, ADIFF, TROPHS, ANEU, PBNP #### [place] [address] [place], [place] [address] WBC 8.4 10 3/mcL Normal 4.5-10.8 [facility] [place] Comment on above: Performed By: #### C BC, GFR, MDW, BMP, ADIFF, TROPHS, ANEU, PBNP #### [place] [address] [place], [place] [address] CT ANGIOGRAPHY CHEST W/CONTR Teresa 01-16-2025 CT ANGIOGRAPHY CHEST W/CONTRAST ORIGINAL EXAMINATION: CTA OF THE CHEST 01/16/2025 6:53 am TECHNIQUE: CTA of the chest was performed after the administration of intravenous contrast. Multiplanar reformatted images are provided for review. MIP images are provided for review. Automated exposure control, iterative reconstruction, and/or weight based adjustment of the mA/kV was utilized to reduce the radiation dose to as low as reasonably achievable. COMPARISON: None. HISTORY: ORDERING SYSTEM PROVIDED HISTORY: Reason for Exam: Pulmonary embolism (PE) suspected, high prob FINDINGS: Pulmonary Arteries: The pulmonary arteries are adequately opacified for evaluation. There are multiple small filling defects in segmental branches of pulmonary arteries in the lower lobes bilaterally consistent with pulmonary emboli. Main pulmonary artery is normal in diameter. There is no evidence of right ventricular strain. Mediastinum: There is no mediastinal mass or lymph node enlargement. The heart is mildly enlarged. There is no pericardial fluid. Thoracic aorta is nonaneurysmal. Lungs/pleura: There is no acute lung infiltrate or edema. No pleural fluid or pneumothorax is present. Upper Abdomen: Limited images of the upper abdomen are unremarkable. Soft Tissues/Bones: No acute bone or soft tissue abnormality. IMPRESSION: 1. Bilateral lower lobe pulmonary emboli. 2. Mild cardiomegaly. Interpreted by: Kit Magallon MD Preliminary Report By: Kit Magallon MD Electronically signed By Kit Magallon MD Dictated Date: 01/16/2025 6:57:37 AM Prelim Date: 01/16/2025 7:01:45 AM Sign Date: 01/16/2025 7:01:45 AM Ordering Provider: TAO BURR Normal [facility] [place] CVFLURVasquez 01-16-2025 FLU A PCR Negative Normal Negative [facility] [place] Comment on above: Performed By: #### C BC, GFR, MDW, BMP, ADIFF, TROPHS, ANEU, PBNP #### [place] [address] FLU B PCR Negative Normal Negative [facility] [place] Comment on above: Performed By: #### C RICARDO, GFR, MDW, BMP, ADIFF, TROPHS, ANEU, PBNP #### [place] [address] RSV PCR Negative Normal Negative [facility] [place] Comment on above: Performed By: #### C BC, GFR, MDW, BMP, ADIFF, TROPHS, ANEU, PBNP #### [place] [address] SARS-CoV-2 (COVID-19) RNA MILO+probe Ql (Unsp spec) Negative Normal Negative [facility] [place] Comment on above: Result Comment: Resu lts from the Xpert Xpress CoV-2/Flu/RSV plus test should be correlated with the clinical history, epidemiological data, and other data available to the clinical evaluating the patient. Performance of the Xpert Xpress CoV-2/Flu/RSV plus test has only been established in nasopharyngeal swab specimen. Erroneous test results might occur from improper specimen collection, failure to follow the recommended sample collection, handling and storage procedures, technical error, or sample mix-up. False negative results may occur if a virus is present at a level below the analytical limit of detection. Viral nucleic acid may persist in vivo, independent of virus viability. Detection of analyte target(s) does not imply that the corresponding virus(es) are infectious or are the causative agents for clinical symptoms. Recent patient exposure to FluMist or other live attenuated influenza vaccines may cause inaccurate positive results. Performed By: #### C BC, JASEN, W, BMP, REJI, SAWYER, JOSE, PBNP #### [address] [place] [place], [place] [address] LABORATORYOrdered By: SYSTEM SYSTEM on 01-16-2025 Troponin I.cardiac DL <= 0.01 ng/mL [Mass/Vol] 6 ng/L Normal 0 - 51 ng/L AO ADM SS Comment on above: Interpretive Data: H igh Sensitive Troponin I Reference Ranges: Female: 0-51 ng/L Male: 0-76 ng/L Testing performed on Dimension [employer] using a homogeneous sandwich chemiluminescent immunoassay based on [employer] technology. aPTT Coag (PPP) [Time] 30.2 s Normal 25.0 - 35.0 seconds AO [facility] SS Comment on above: Interpretive Data: F or Heparin anticoagulation therapy, the recommended therapeutic range is: 45.4-75.9 seconds. Patients on heparin therapy may have an extreme result. INR Coag (PPP) [Relative time] 1.0 {INR} Invalid Interpretation Code AO [facility] SS Comment on above: Interpretive Data: Parul landrum [employer] (CHEST, 1991, 102:[id number]) recommended therapeutic range for oral anticoagulant therapy is: LOW RISK: Prophylaxis of venous thrombosis INR: 2.0-3.0 Treatment of pulmonary embolism 2.0-3.0 Prevention of systemic embolism 2.0-3.0 HIGH RISK: Mechanical prosthetic valves 2.5-3.5 PT Coag (PPP) [Time] 11.7 s Normal 9.0 - 1 4.4 seconds AO [facility] SS Troponin I.cardiac DL <= 0.01 ng/mL [Mass/Vol] 6 ng/L Normal 0 - 51 ng/L AO ADM SS Comment on above: Interpretive Data: H igh Sensitive Troponin I Reference Ranges: Female: 0-51 ng/L Male: 0-76 ng/L Testing performed on Dim[employer] EX[employer] using a homogeneous sandwich chemiluminescent immunoassay based on [employer] technology. Basophils (Bld) [#/Vol] 0.0 103/mcL Normal 0.0 - 0.3 10^3/mcL AO Workflow SS Basophils/100 WBC (Bld) 0.5 % Normal 0.0 - 2.5 % AO Workflow SS Calcium [Mass/Vol] 9.9 mg/dL Normal 8.4 - 10. 2 mg/dL AO ADM SS Chloride [Moles/Vol] 105 mmol/L Normal 98 - 10 7 mmol/L AO ADM SS CO2 [Moles/Vol] 28 mmol/L Normal 23 - 31 mmol/L AO ADM SS Creatinine [Mass/Vol] 0.87 mg/dL Normal 0.51 - 0.95 mg/dL AO ADM SS Electrolyte Balance 9.0 mEq/L Normal 4.0 - 15 .0 mEq/L AO ADM SS Eosinophil, Absolute 0.2 103/mcL Normal 0.0 - 0 .7 10^3/mcL AO Workflow SS Eosinophils/100 WBC (Bld) 2.0 % Normal 0.0 - 6.0 % AO Workflow SS Erythrocyte distribution width (RBC) [Ratio] 14.1 % Normal 11.5 - 15.5 % AO Workflow SS Estimated Glomerular Filtration Rate 74 ml/min/1.73sqm Invalid Interpretation Code AO Chemistry S Comment on above: Interpretive Data: Stages of Chronic Kidney Disease (CKD) Stage Description eGFR(ml/min/1.73 sq.m.) CKD 1 Normal kidney function or >=90 normal kindney function with possible kidney damage (ex. Proteinuria) CKD 2 Kidney damage with mild loss 60-89 of kidney function CKD 3a Mild to moderate loss of kidney 45-59 function CKD 3b Moderate to severe loss of 30-44 of kindey function CKD 4 Severe loss of kidney function 15-29 CKD 5 Kidney failure <15 Note: (go live 2024) the eGFR calculation was updated to the 2020 CKD-EPI creatinine equation without a race factor to calculate the eGFR results. Glucose [Mass/Vol] 108 mg/dL Normal 80 - 115 mg/dL AO ADM SS Hematocrit (Bld) [Volume fraction] 45.2 % Normal 34.0 - 46.0 % AO Workflow SS Hemoglobin (Bld) [Mass/Vol] 15.2 G/dL Normal 12.0 - 16.0 G/dL AO Workflow SS Lymphocytes (Bld) [#/Vol] 1.4 103/mcL Normal 0.9 - 4.3 10^3/mcL AO Workflow SS Lymphocytes/100 WBC (Bld) 16.6 % Low 20.0 - 40.0 % AO Workflow SS MCH (RBC) [Entitic mass] 26.7 pg Low 27.0 - 33.0 pg AO Workflow SS MCHC 33.6 G/dL Normal 32.0 - 36.0 G/dL AO Workflow SS MCV (RBC) [Entitic vol] 79.6 fL Low 80.0 - 99.0 fL AO Workflow SS Monocyte distribution width Auto (Bld) [Entitic vol] 18.40 1 Normal 0.00 - 20.00 AO Workflow SS Comment on above: Result Comment: For ED adult patients suspected of sepsis, MDW<=20.0 does not rule out sepsis or risk of sepsis Monocytes (Bld) [#/Vol] 0.8 103/mcL Normal 0.1 - 1.4 10^3/mcL AO Workflow SS Monocytes/100 WBC (Bld) 9.2 % Normal 2.0 - 13.0 % AO Workflow SS Natriuretic peptide.B prohormone N-Terminal [Mass/Vol] 48 pg/mL Normal 0 - 125 pg/mL AO ADM SS Comment on above: Interpretive Data: N T-proBNP results of less than 300 pg/mL effectively rules out acute congestive heart failure with 99% negative predictive value. Neutrophils (Bld) [#/Vol] 6.0 103/mcL Normal 2.3 - 8.1 10^3/mcL AO Workflow SS Neutrophils/100 WBC (Bld) 71.7 % Normal 50.0 - 75.0 % AO Workflow SS Platelet mean volume (Bld) [Entitic vol] 7.9 fL Normal 6.6 - 10.5 fL AO Workflow SS Platelets (Bld) [#/Vol] 288 103/mcL Normal 150 - 450 10^3/mcL AO Workflow SS Potassium [Moles/Vol] 4.0 mmol/L Normal 3.5 - 5.1 mmol/L AO ADM SS RBC (Bld) [#/Vol] 5.67 106/mcL High 4.10 - 5.3 0 10^6/mcL AO Workflow SS Sodium [Moles/Vol] 142 mmol/L Normal 136 - 145 mmol/L AO ADM SS Troponin I.cardiac DL <= 0.01 ng/mL [Mass/Vol] 6 ng/L Normal 0 - 51 ng/L AO ADM SS Comment on above: Interpretive Data: H igh Sensitive Troponin I Reference Ranges: Female: 0-51 ng/L Male: 0-76 ng/L Testing performed on [employer] using a homogeneous sandwich chemiluminescent immunoassay based on [employer] technology. Urea nitrogen [Mass/Vol] 18 mg/dL Normal 7 - 18 mg/dL AO ADM SS Urea nitrogen/Creatinine [Mass ratio] 21 ratio Normal 7 - 27 ratio AO ADM SS WBC (Bld) [#/Vol] 8.4 103/mcL Normal 4.5 - 10.8 10^3/mcL AO Workflow SS LABORATORYOrdered By: Nimo Jacinto on 01-16-2025 FLUAV RNA MILO+probe Ql (Resp) Negative (01/16/25 6:17 AM) Normal Negative AO Auto Urine SS FLUBV RNA MILO+probe Ql (Resp) Negative (01/16/25 6:17 AM) Normal Negative AO Auto Urine SS RSV RNA MILO+probe Ql (Resp) Negative (01/16/25 6:17 AM) Normal Negative AO Auto Urine SS SARS-CoV-2 (COVID-19) RNA MILO+probe Ql (Resp) Negative 9 (01/16/25 6:17 AM) Normal Negative AO Auto Urine SS Comment on above: Interpretive Data: R esults from the Xpert Xpress CoV-2/Flu/RSV plus test should be correlated with the clinical history, epidemiological data, and other data available to the clinical evaluating the patient. Performance of the Xpert Xpress CoV-2/Flu/RSV plus test has only been established in nasopharyngeal swab specimen. Erroneous test results might occur from improper specimen collection, failure to follow the recommended sample collection, handling and storage procedures, technical error, or sample mix-up. False negative results may occur if a virus is present at a level below the analytical limit of detection. Viral nucleic acid may persist in vivo, independent of virus viability. Detection of analyte target(s) does not imply that the corresponding virus(es) are infectious or are the causative agents for clinical symptoms. Recent patient exposure to FluMist or other live attenuated influenza vaccines may cause inaccurate positive results. PBNPon 01-16-2025 Natriuretic peptide B (Bld) [Mass/Vol] 48 pg/mL Normal 0-125 [facility] [place] Comment on above: Result Comment: NT-p roBNP results of less than 300 pg/mL effectively rules out acute congestive heart failure with 99% negative predictive value. Performed By: #### C BC, GFR, MDW, BMP, ADANGELO, TROPHS, ANEU, PBNP #### [address] [address] PROon 01-16-2025 PT Coag (PPP) [Time] 11.7 s Normal 9.0-14.4 [facility] Comment on above: Performed By: #### C RICARDO, JASEN, BRANDON, BMP, ADIFF, TROPHS, ANEU, PBNP #### [place] [id number] PT International Ratio 1.0 Normal [facility] [place] Comment on above: Result Comment: [employer] [place] (CHEST, 1991, 102:[id number]) recommended therapeutic range for oral anticoagulant therapy is: LOW RISK: Prophylaxis of venous thrombosis INR: 2.0-3.0 Treatment of pulmonary embolism 2.0-3.0 Prevention of systemic embolism 2.0-3.0 HIGH RISK: Mechanical prosthetic valves 2.5-3.5 Performed By: #### C RICARDO, JASEN, BRANDON, BMP, ADIFF, TROPHS, ANEU, PBNP #### [address] [address] TROPHSon 01-16-2025 High Sensitivity Troponin I 6 ng/L Normal 0-51 [facility] [place] Comment on above: Result Comment: High Sensitive Troponin I Reference Ranges: Female: 0-51 ng/L Male: 0-76 ng/L Testing performed on Dimension [employer] using a homogeneous sandwich chemiluminescent immunoassay based on [employer] technology. Performed By: #### T KIRAN #### [place] [id number] High Sensitivity Troponin I 6 ng/L Normal 0-[address] [place] [address] Comment on above: Result Comment: High Sensitive Troponin I Reference Ranges: Female: 0-51 ng/L Male: 0-76 ng/L Testing performed on Dimension EXL using a homogeneous sandwich chemiluminescent immunoassay based on [employer] technology. Performed By: #### T KIRAN #### [place] [id number] High Sensitivity Troponin I 6 ng/L Normal 0-51 [facility] [place] Comment on above: Result Comment: High Sensitive Troponin I Reference Ranges: Female: 0-51 ng/L Male: 0-76 ng/L Testing performed on [employer] using a homogeneous sandwich chemiluminescent immunoassay based on [employer] technology. Performed By: #### C RICARDO, JASEN, W, TABATHA, SAWYER MENDOZA, JOSE, PBBINH #### [place] [address] [place], [place] [address] XR HIP 2-3 VIEWS LEFTon 07-0 XR HIP 2-3 VIEWS LEFT ORIGINAL EXAMINATION: 2 XRAY VIEWS OF THE LEFT HIP 01/02/2025 1:09 pm COMPARISON: None. HISTORY: ORDERING SYSTEM PROVIDED HISTORY: Reason for Exam: LEFT HIP PAIN FINDINGS: Early osteophyte formation and joint space narrowing affects the left hip. There is no acute fracture infiltrative bony lesion. Skeletal elements appear intact. There is no acute or healing fracture involving the left femoral head, neck or proximal shaft. IMPRESSION: 1. Early osteoarthritis left hip. 2. No acute bony abnormality. Interpreted by: Richie Nick DO Preliminary Report By: Richie Nick DO Electronically signed By Richie Nick DO Dictated Date: 01/02/2025 2:55:31 PM Prelim Date: 01/02/2025 2:56:32 PM Sign Date: 01/02/2025 2:56:32 PM Ordering Provider: TUYET PADILLA Interpreted by: Richie Nick DO Preliminary Report By: Richie Nick DO Electronically signed By Richie Nick DO Dictated Date: 01/02/2025 2:55:31 PM Prelim Date: 01/02/2025 2:56:32 PM Sign Date: 01/02/2025 2:56:32 PM Ordering Provider: TUYET PADILLA [facility] CNOVon 09-12-2024 CNOV Office Visit ([facility]) ---- HECTOR SANCHEZ ([id number]) 1960 F Date Time Provider Department 09/12/24 8:55 AM TUYET COURTNEY During your visit today, we recorded the following information about you: Temperature Pulse Respiration Blood pressure 97.6 degrees 82/minute 18/minute 130/85 Weight 98.4 kg Tuyet Courtney DO 09/12/2024 9:23 AM Signed Cough You have been seen for your cough. There are many possible causes of cough. Most are not dangerous. Your doctor has determined that it is OK for you to go home today. Your doctor believes your cough was caused by bacteria. Your doctor prescribed an antibiotic that will fight the bacteria. The doctor may have prescribed some medicine to help with your cough. Use the medicine as directed. YOU SHOULD SEEK MEDICAL ATTENTION IMMEDIATELY, EITHER HERE OR AT THE NEAREST EMERGENCY DEPARTMENT, IF ANY OF THE FOLLOWING OCCURS: You wheeze or have trouble breathing. You cough up mucous or lose weight for no reason. You have a fever (temperature higher than 100.4?F / 38?C) that lasts more than 5 days. You have chest pain. Your symptoms get worse or do not get better in 2 or 3 days. You have any new problems or concerns. Tuyet Courtney DO 09/12/2024 9:29 AM Signed [facility] NESHAN Erna Sanchez is a 64 year old female. Patient presents with: Cough: Cough, left ear pressure, sore throat and nasal drainage x 3 days Patient is having surgery in less than 2 weeks. She is concerned that her illness will get in the way of her having her hip replaced. Symptoms have gotten slightly worse since they started. Cough Associated symptoms include ear congestion. Pertinent negatives include no chest pain, no shortness of breath and no wheezing. Her past medical history does not include COPD. URI She complains of cough and sputum production. There is no chest tightness, difficulty breathing, shortness of breath or wheezing. This is a new problem. The current episode started in the past 7 days. The problem occurs constantly. The problem has been gradually worsening. The cough is productive of sputum. Associated symptoms include ear congestion, malaise/fatigue and nasal congestion. Pertinent negatives include no chest pain or fever. Her symptoms are aggravated by minimal activity. There are no known risk factors for lung disease. There is no history of COPD. Review of Systems Constitutional: Positive for malaise/fatigue. Negative for fever. Respiratory: Positive for cough and sputum production. Negative for shortness of breath and wheezing. Cardiovascular: Negative for chest pain. Objective BP 130/85 Pulse 82 Temp 36.4 ?C (97.6 ?F) Resp 18 Wt 98.4 kg (217 lb) SpO2 97% Physical Exam Vitals and nursing note reviewed. Constitutional: General: She is not in acute distress. Appearance: Normal appearance. She is not ill-appearing, toxic-appearing or diaphoretic. HENT: Head: Normocephalic and atraumatic. Comments: Frontal sinus tenderness Right Ear: Tympanic membrane, ear canal and external ear normal. Left Ear: Tympanic membrane, ear canal and external ear normal. Nose: Congestion and rhinorrhea present. Mouth/Throat: Mouth: Mucous membranes are moist. Pharynx: No oropharyngeal exudate or posterior oropharyngeal erythema. Eyes: General: Right eye: No discharge. Left eye: No discharge. Extraocular Movements: Extraocular movements intact. Cardiovascular: Rate and Rhythm: Normal rate and regular rhythm. Pulses: Normal pulses. Heart sounds: Normal heart sounds. No murmur heard. Pulmonary: Effort: Pulmonary effort is normal. No respiratory distress. Breath sounds: Normal breath sounds. Musculoskeletal: Cervical back: Normal range of motion and neck supple. No rigidity or tenderness. Lymphadenopathy: Cervical: No cervical adenopathy. Skin: General: Skin is warm and dry. Capillary Refill: Capillary refill takes less than 2 seconds. Neurological: Mental Status: She is alert. {ASSESSMENT/PLAN: 1. Sinobronchitis - ICD9: 473.9, 490, ICD10: J32.9, J40 -Discussed at length with patient her concerns about her surgery.using shared decision making, we will prescribe Zithromax pack as directed for patient to start taking if symptoms do not improve in the next 4 days -Discussed symptoms are likely viral at this time, declines viral testing - Supportive care with plenty of fluids, rest, and analgesia prn - Follow up with PCP in 3-5 days if symptoms persist or worsen. -To ER with any chest pain, difficulty breathing, fever greater than 104 Fahrenheit, or vomiting - AZITHROMYCIN 250 MG TABLET Tuyet Courtney, History and Record Review Clinical information obtained from an independent historian. History obtained from or confirmed by: spouse. Differential Diagnose (more content not included)... Normal [facility] MA MAMMOGRAM SCREENING BILAT ERAL W/TOMOon 01-30-2024 MA MAMMOGRAM SCREENING BILATERAL W/SALLY ORIGINAL FROM: [facility] [address] [place] [address] PROCEDURE FOR: HECTOR SANCHEZ [address] [place] [address] Home: PID#: [id number] Exam#: [id number] : 1960 Age: 63 TO: EHSAN GALO NP [facility] [address] [facility] [place] [address] EXAMINATION: SCREENING DIGITAL BILATERAL MAMMOGRAM WITH TOMOSYNTHESIS, 01/30/2024 6:57 am TECHNIQUE: Screening mammography of the bilateral breasts was performed with tomosynthesis. 2D standard and 3D tomosynthesis combination imaging performed through both breasts in the MLO and CC projection. Computer aided detection was utilized in the interpretation of this exam. COMPARISON: November 14, 2020, January 28, 2019, September 12, 2017 HISTORY: Breast cancer screening. FINDINGS: BREAST DENSITY: The breasts are heterogeneously dense, which may obscure small masses. There are bilateral benign-type calcifications. There is no significant mass, architectural distortion or microcalcification. Fibroglandular pattern is stable, including bilateral benign-type focal asymmetries.. IMPRESSION: No mammographic evidence of malignancy. Continued screening with annual mammograms is recommended. Consider supplemental annual breast MRI screening given elevated lifetime risk of breast cancer, best performed at six-month intervals between annual screening mammography. Brandi Abraham risk calculations, generated with the history provided, report this patient's 10 year risk and lifetime risk for developing breast cancer at 11.1% and 23.7%, respectively. Based on this assessment tool, if the patient's calculated lifetime risk is below 20%, then the patient is considered at average risk for developing breast cancer. If the patient's calculated lifetime risk is at or above 20%, then the patient is considered high risk for developing breast cancer and may be a candidate for supplemental breast MRI screening in addition to annual mammographic screening per the [place] [employer]. BIRADS: MAMMOGRAM BI-RADS: 2: Benign finding RECALL: 1 year screening RECALL TYPE: mammo LETTER SENT: Normal BI-RADS 1 and 2 Interpreted by: Tamiko Rodriguez Preliminary Report By: Tamiko Rodriguez Electronically signed By Tamiko Rodriguez Dictated Date: 01/30/2024 7:34:46 AM Prelim Date: 01/30/2024 7:44:02 AM Sign Date: 01/30/2024 7:44:02 AM Ordering Provider: EHSAN GALO Mold Setter: CHRIS MAN RT(R)(M) letter sent: Normal BI-RADS 1 and 2 Mammogram BI-RADS: 2 Benign Normal [facility] ([place]) BD BONE DENSITY DEXA AXIAL S [facility] 12-14-2023 BD BONE DENSITY DEXA AXIAL SKELETON ORIGINAL EXAMINATION: BONE DENSITOMETRY 12/13/2023 1:43 pm TECHNIQUE: A bone density dual x-ray absorptiometry (DEXA) scan was performed of the axial (e.g. hips, spine) and/or appendicular (e.g. radius) skeleton as appropriate. COMPARISON: None. HISTORY: ORDERING SYSTEM PROVIDED HISTORY: Reason for Exam: OSTEOPOROSIS SCREENING FINDINGS: T Score Left Femoral Neck: -1.9 Left Femoral Neck: 0.637 (g/cm2) T Score Left Hip: -1.1 Left Hip: 0.808 (g/cm2) T Score Lumbar Spine: -2.0 Lumbar Spine: 0.825 (g/cmd2) FRAX: 10 year fracture risk assessment Major osteoporotic fracture: 15% Hip fracture: 1.8% IMPRESSION: Osteopenia by WHO criteria. World Health Organization criteria: (Comparing with young normal sex matched population) - Normal: T-score at or above -1 SD (standard deviation) - Osteopenia: T-score between -1 and -2.5 SD - Osteoporosis: T-score at or below -2.5 SD The NOF recommends that FDA-approved medical therapies be considered in post-menopausal women and men age >/= 50 years with a: * Hip or vertebral fracture, or * T-score of /= 20% for major osteoporotic fractures or * >/= 3% for hip fractures All treatment decisions require clinical judgement and consideration of individual patient factors, including patient preferences, comorbidities, previous drug use, risk factors not captured in the FRAX registered model (e.g., frailty, falls, vitamin D deficiency, increased bone turnover, interval significant decline in bone density) and possible under- or over-estimation of fracture risk by FRAX. Interpreted by: Hawk Carr DO Preliminary Report By: Hawk Carr DO Electronically signed By Hawk Carr DO Dictated Date: 12/14/2023 8:09:08 AM Prelim Date: 12/14/2023 8:09:35 AM Sign Date: 12/14/2023 8:09:35 AM Ordering Provider: EHSAN GALO [facility] ([place]) CT ANKLE W/O CONTRAST LEFTon 05-03-2023 CT ANKLE W/O CONTRAST LEFT ORIGINAL EXAMINATION: CT OF THE LEFT ANKLE WITHOUT ZOCYVRZY86/6/2023 2:58 pm TECHNIQUE: CT of the left ankle was performed without the administration of intravenous contrast. Multiplanar reformatted images are provided for review. Automated exposure control, iterative reconstruction, and/or weight based adjustment of the mA/kV was utilized to reduce the radiation dose to as low as reasonably achievable. COMPARISON: None HISTORY: ORDERING SYSTEM PROVIDED HISTORY: Reason for Exam: Displaced trimalleolar fracture of left lower leg, subsequent encounter for closed fracture with routine healing FINDINGS: There are external fixators in the tibial shaft and calcaneus. There is a transverse fracture of the medial malleolus with up to 8 mm of distraction. There is a minimally comminuted fracture of the posterior malleolus of the tibia with very mild posterolateral displacement of up to 3-4 mm. This disrupts the articular surface of the posterior tibial plafond. There is a comminuted fracture of the distal fibula proximal to the lateral malleolus which however extends to the tibia-fibular syndesmosis and the level of the tibiotalar joint. There is mild posterior lateral displacement of the distal fragment. On the axial images there is disruption and widening of the posterior tibiofibular syndesmosis. There are no additional fractures at the ankle. The tarsal bones seem to be intact with normal alignment. There is extensive soft tissue edema. CT is not reliable for evaluating soft tissue injury to the ligaments and tendons. IMPRESSION: Trimalleolar fracture as described. There is also disruption of the tibia-fibular syndesmosis with widening posteriorly. Interpreted by: Jaron Serrato MD Preliminary Report By: Jaron Serrato MD Electronically signed By Jaron Serrato MD Dictated Date: 05/03/2023 8:42:08 AM Prelim Date: 05/03/2023 8:49:15 AM Sign Date: 05/03/2023 8:49:15 AM Ordering Provider: LINO Arora [facility] ([place]) .Auto Diffon 04-29-2023 Basophil, Absolute 0.0 10 3/mcL Normal 0.0-0.3 [facility] ([place]) Comment on above: Performed By: #### A DIFF, CBC, PRO, GFR, ANEU, BMP #### [address] [address] Basophils/100 WBC (Bld) 0.7 % Normal 0.0-2.5 [facility] ([place]) Comment on above: Performed By: #### A DIFF, CBC, PRO, GFR, ANEU, BMP #### [address] [address] Eosinophil, Absolute 0.1 10 3/mcL Normal 0.0-0.7 [facility] ([place]) Comment on above: Performed By: #### A DIFF, CBC, PRO, GFR, ANEU, BMP #### [address] [address] Eosinophils/100 WBC (Bld) 2.6 % Normal 0.0-6.0 [facility] ([place]) Comment on above: Performed By: #### A DIFF, CBC, PRO, GFR, ANEU, BMP #### [address] [address] Lymphocyte, Absolute 1.0 10 3/mcL Normal 0.9-4.3 [facility] ([place]) Comment on above: Performed By: #### A DIFF, CBC, PRO, GFR, ANEU, BMP #### [address] [address] Lymphocytes/100 WBC (Bld) 17.9 % Low 20.0-40.0 [facility] ([place]) Comment on above: Performed By: #### A DIFF, CBC, PRO, GFR, ANEU, BMP #### [address] [address] Monocyte, Absolute 0.4 10 3/mcL Normal 0.1-1.4 [facility] ([place]) Comment on above: Performed By: #### A DIFF, CBC, PRO, GFR, ANEU, BMP #### [address] [address] Monocytes/100 WBC (Bld) 7.0 % Normal 2.0-13.0 [facility] ([place]) Comment on above: Performed By: #### A DIFF, CBC, PRO, GFR, ANEU, BMP #### [address] [address] Neutrophils/100 WBC (Bld) 71.8 % Normal 50.0-75.0 [facility] ([place]) Comment on above: Performed By: #### A DIFF, CBC, PRO, GFR, ANEU, BMP #### [address] [address] .GFRon 04-29-2023 GFR >60 Normal [facility] ([place]) Comment on above: Result Comment: GFR Population mean for , Non- Americans Ages 20-29 = 116 mL/min/1.73 sq.m. Ages 30-39 = 107 mL/min/1.73 sq.m. Ages 40-49 = 99 mL/min/1.73 sq.m. Ages 50-59 = 93 mL/min/1.73 sq.m. Ages 60-69 = 85 mL/min/1.73 sq.m. Ages 70+ = 75 mL/min/1.73 sq.m. Chronic Kidney Disease: Less than 60 mL/min/1.73 square meters End Stage Renal Disease: Less than 15 mL/min/1.73 square meters Performed By: #### A DIFF, CBC, PRO, GFR, ANEU, BMP #### [address] [address] GFR Non- >60 Normal [facility] ([place]) Comment on above: Result Comment: GFR Population mean for , Non- Americans Ages 20-29 = 116 mL/min/1.73 sq.m. Ages 30-39 = 107 mL/min/1.73 sq.m. Ages 40-49 = 99 mL/min/1.73 sq.m. Ages 50-59 = 93 mL/min/1.73 sq.m. Ages 60-69 = 85 mL/min/1.73 sq.m. Ages 70+ = 75 mL/min/1.73 sq.m. Chronic Kidney Disease: Less than 60 mL/min/1.73 square meters End Stage Renal Disease: Less than 15 mL/min/1.73 square meters Performed By: #### A DIFF, CBC, PRO, GFR, ANEU, BMP #### [address] [address] .NEUABSon 04-29-2023 Neutrophil, Absolute 4.0 10 3/mcL Normal 2.3-8.1 [facility] ([place]) Comment on above: Performed By: #### A DIFF, CBC, PRO, GFR, ANEU, BMP #### [address] [address] BMPon 04-29-2023 BUN/Creatinine Ratio 27.5 ratio High 10.0-22.0 [facility] ([place]) Comment on above: Performed By: #### A DIFF, CBC, PRO, GFR, ANEU, BMP #### [address] [address] Calcium [Mass/Vol] 8.9 mg/dL Normal 8.7-10.4 [facility] ([place]) Comment on above: Performed By: #### A DIFF, CBC, PRO, GFR, ANEU, BMP #### [address] [address] Chloride [Moles/Vol] 106 mmol/L Normal 98-110 [facility] ([place]) Comment on above: Performed By: #### A DIFF, CBC, PRO, GFR, ANEU, BMP #### [address] [address] CO2 [Moles/Vol] 34 mmol/L High 22-32 [facility] ([place]) Comment on above: Performed By: #### A DIFF, CBC, PRO, GFR, ANEU, BMP #### [address] [address] Creatinine [Mass/Vol] 0.80 mg/dL Normal 0.50-1.20 [facility] ([place]) Comment on above: Performed By: #### A DIFF, CBC, PRO, GFR, ANEU, BMP #### [place] [address] Electrolyte Balance 0.0 mEq/L Low 4.0-15.0 [facility] ([place]) Comment on above: Performed By: #### A DIFF, CBC, PRO, GFR, ANEU, BMP #### [place] [id number] Glucose [Mass/Vol] 87 mg/dL Normal 82-115 [facility] ([place]) Comment on above: Performed By: #### A DIFF, CBC, PRO, GFR, ANEU, BMP #### [place] [address] Potassium [Moles/Vol] 4.6 mmol/L Normal 3.5-5.0 [facility] ([place]) Comment on above: Performed By: #### A DIFF, CBC, PRO, GFR, ANEU, BMP #### [place] [id number] Sodium [Moles/Vol] 140 mmol/L Normal 136-145 [facility] ([place]) Comment on above: Performed By: #### A DIFF, CBC, PRO, GFR, ANEU, BMP #### [place] [address] Urea nitrogen [Mass/Vol] 22.0 mg/dL Normal 8.0-22.0 [facility] ([place]) Comment on above: Performed By: #### A DIFF, CBC, PRO, GFR, ANEU, BMP #### [address] [address] CBCon 04-29-2023 Erythrocyte distribution width (RBC) [Ratio] 13.8 % Normal 11.5-15.5 [facility] ([place]) Comment on above: Performed By: #### A DIFF, CBC, PRO, GFR, ANEU, BMP #### [place] [id number] Hematocrit (Bld) [Volume fraction] 40.8 % Normal 34.0-46.0 [facility] ([place]) Comment on above: Performed By: #### A DIFF, CBC, PRO, GFR, ANEU, BMP #### [place] [address] Hgb 13.6 G/dL Normal 12.0-16.0 [facility] ([place]) Comment on above: Performed By: #### A DIFF, CBC, PRO, GFR, ANEU, BMP #### [place] [address] MCH (RBC) [Entitic mass] 28.0 pg Normal 27.0-33.0 [facility] ([place]) Comment on above: Performed By: #### A DIFF, CBC, PRO, GFR, ANEU, BMP #### [place] [address] MCHC 33.3 G/dL Normal 32.0-36.0 [facility] ([place]) Comment on above: Performed By: #### A DIFF, CBC, PRO, GFR, ANEU, BMP #### [place] [address] MCV (RBC) [Entitic vol] 84.1 fL Normal 80.0-99.0 [facility] ([place]) Comment on above: Performed By: #### A DIFF, CBC, PRO, GFR, ANEU, BMP #### [place] [address] Platelet 212 10 3/mcL Normal 150-450 [facility] ([place]) Comment on above: Performed By: #### A DIFF, CBC, PRO, GFR, ANEU, BMP #### [place] [address] Platelet mean volume (Bld) [Entitic vol] 8.3 fL Normal 6.6-10.5 [facility] ([place]) Comment on above: Performed By: #### A DIFF, CBC, PRO, GFR, ANEU, BMP #### [place] [address] RBC 4.85 10 6/mcL Normal 4.10-5.30 [facility] ([place]) Comment on above: Performed By: #### A DIFF, CBC, PRO, GFR, ANEU, BMP #### [address] [address] WBC 5.5 10 3/mcL Normal 4.5-10.8 [facility] ([place]) Comment on above: Performed By: #### A DIFF, CBC, PRO, GFR, ANEU, BMP #### [address] [address] LABORATORYOrdered By: SYSTEM SYSTEM on 04-29-2023 Basophils (Bld) [#/Vol] 0.0 103/mcL Invalid Interpretation Code 0.0 - 0.3 10^3/mcL Workflow SS Basophils/100 WBC (Bld) 0.7 % Invalid Interpretation Code 0.0 - 2.5 % Workflow SS Calcium [Mass/Vol] 8.9 mg/dL Invalid Interpretation Code 8.7 - 10.4 mg/dL ADM SS Chloride [Moles/Vol] 106 mmol/L Invalid Interpretation Code 98 - 110 mEq/L ADM SS CO2 [Moles/Vol] 34 mmol/L Invalid Interpretation Code 22 - 32 mEq/L ADM SS Creatinine [Mass/Vol] 0.80 mg/dL Invalid Interpretation Code 0.50 - 1.20 mg/dL ADM SS Electrolyte Balance 0.0 mEq/L Invalid Interpretation Code 4.0 - 15.0 mEq/L ADM SS Eosinophils (Bld) [#/Vol] 0.1 103/mcL Invalid Interpretation Code 0.0 - 0.7 10^3/mcL Workflow SS Eosinophils/100 WBC (Bld) 2.6 % Invalid Interpretation Code 0.0 - 6.0 % Workflow SS Erythrocyte distribution width (RBC) [Ratio] 13.8 % Invalid Interpretation Code 11.5 - 15.5 % Workflow SS GFR/1.73 sq M.predicted among blacks MDRD (S/P/Bld) [Vol rate/Area] ml/min/1.73sqm Invalid Interpretation Code Chemistry S Comment on above: Interpretive Data: GFR Population mean for , Non- Americans Ages 20-29 = 116 mL/min/1.73 sq.m. Ages 30-39 = 107 mL/min/1.73 sq.m. Ages 40-49 = 99 mL/min/1.73 sq.m. Ages 50-59 = 93 mL/min/1.73 sq.m. Ages 60-69 = 85 mL/min/1.73 sq.m. Ages 70+ = 75 mL/min/1.73 sq.m. Chronic Kidney Disease: Less than 60 mL/min/1.73 square meters End Stage Renal Disease: Less than 15 mL/min/1.73 square meters GFR/1.73 sq M.predicted among non-blacks MDRD (S/P/Bld) [Vol rate/Area] ml/min/1.73sqm Invalid Interpretation Code Chemistry S Comment on above: Interpretive Data: GFR Population mean for , Non- Americans Ages 20-29 = 116 mL/min/1.73 sq.m. Ages 30-39 = 107 mL/min/1.73 sq.m. Ages 40-49 = 99 mL/min/1.73 sq.m. Ages 50-59 = 93 mL/min/1.73 sq.m. Ages 60-69 = 85 mL/min/1.73 sq.m. Ages 70+ = 75 mL/min/1.73 sq.m. Chronic Kidney Disease: Less than 60 mL/min/1.73 square meters End Stage Renal Disease: Less than 15 mL/min/1.73 square meters Glucose [Mass/Vol] 87 mg/dL Invalid Interpretation Code 82 - 115 mg/dL ADM SS Hematocrit (Bld) [Volume fraction] 40.8 % Invalid Interpretation Code 34.0 - 46.0 % Workflow SS Hemoglobin (Bld) [Mass/Vol] 13.6 G/dL Invalid Interpretation Code 12.0 - 16.0 G/dL Workflow SS Lymphocytes (Bld) [#/Vol] 1.0 103/mcL Invalid Interpretation Code 0.9 - 4.3 10^3/mcL Workflow SS Lymphocytes/100 WBC (Bld) 17.9 % Invalid Interpretation Code 20.0 - 40.0 % Workflow SS MCH (RBC) [Entitic mass] 28.0 pg Invalid Interpretation Code 27.0 - 33.0 pg Workflow SS MCHC 33.3 G/dL Invalid Interpretation Code 32.0 - 36.0 G/dL Workflow SS MCV (RBC) [Entitic vol] 84.1 fL Invalid Interpretation Code 80.0 - 99.0 fL AH Workflow SS Monocytes (Bld) [#/Vol] 0.4 103/mcL Invalid Interpretation Code 0.1 - 1.4 10^3/mcL AH Workflow SS Monocytes/100 WBC (Bld) 7.0 % Invalid Interpretation Code 2.0 - 13.0 % AH Workflow SS Neutrophils (Bld) [#/Vol] 4.0 103/mcL Invalid Interpretation Code 2.3 - 8.1 10^3/mcL AH Workflow SS Neutrophils/100 WBC (Bld) 71.8 % Invalid Interpretation Code 50.0 - 75.0 % AH Workflow SS Platelet mean volume (Bld) [Entitic vol] 8.3 fL Invalid Interpretation Code 6.6 - 10.5 fL AH Workflow SS Platelets (Bld) [#/Vol] 212 103/mcL Invalid Interpretation Code 150 - 450 10^3/mcL AH Workflow SS Potassium [Moles/Vol] 4.6 mmol/L Invalid Interpretation Code 3.5 - 5.0 mEq/L AH ADM SS RBC (Bld) [#/Vol] 4.85 106/mcL Invalid Interpretation Code 4.10 - 5.30 10^6/mcL AH Workflow SS Sodium [Moles/Vol] 140 mmol/L Invalid Interpretation Code 136 - 145 mEq/L AH ADM SS Urea nitrogen [Mass/Vol] 22.0 mg/dL Invalid Interpretation Code 8.0 - 22.0 mg/dL AH ADM SS Urea nitrogen/Creatinine [Mass ratio] 27.5 ratio Invalid Interpretation Code 10.0 - 22.0 ratio AH ADM SS WBC (Bld) [#/Vol] 5.5 103/mcL Invalid Interpretation Code 4.5 - 10.8 10^3/mcL Workflow SS LABORATORYOrdered By: Satish Lowe on 04-29-2023 PT Coag (PPP) [Time] 11.7 s Invalid Interpretation Code 9.0 - 14.2 seconds [facility] SS Comment on above: Interpretive Data: E ffective 01/09/08, Protime results may be affected by some antibiotics (i.e. Ciprofloxacin, Azithromycin, Bactrim) which may potentiate the action of oral anticoagulants, with further increases in Protime/INR. PT International Ratio 1.0 ratio Invalid Interpretation Code [facility] Comment on above: Interpretive Data: Parul landrum [place] [employer] (CHEST, 1992, 102:312S-25S) recommended therapeutic range for oral anticoagulant therapy is: LOW RISK: Prophylaxis of venous thrombosis INR: 2.0-3.0 Treatment of pulmonary embolism 2.0-3.0 Prevention of systemic embolism 2.0-3.0 HIGH RISK: Mechanical prosthetic valves 2.5-3.5 PROon 04-29-2023 INR Coag (PPP) [Relative time] 1.0 {INR} Normal [facility] ([place]) Comment on above: Result Comment: [employer] [place] [employer] (CHEST, 1991, 102:312S-25S) recommended therapeutic range for oral anticoagulant therapy is: LOW RISK: Prophylaxis of venous thrombosis INR: 2.0-3.0 Treatment of pulmonary embolism 2.0-3.0 Prevention of systemic embolism 2.0-3.0 HIGH RISK: Mechanical prosthetic valves 2.5-3.5 Performed By: #### A DIFF, CBC, PRO, GFR, ANEU, BMP #### [facility] [address] [place] [address] PT Coag (PPP) [Time] 11.7 s Normal 9.0-14.2 [facility] ([place]) Comment on above: Result Comment: Effe ctive 01/09/08, Protime results may be affected by some antibiotics (i.e. Ciprofloxacin, Azithromycin, Bactrim) which may potentiate the action of oral anticoagulants, with further increases in Protime/INR. Performed By: #### A DIFF, CBC, PRO, GFR, ANEU, BMP #### [facility] [address] [place] [address] XR FLUORO 1-2 HRS TECH TIMEo n 04-29-2023 XR FLUORO 1-2 HRS TECH TIME ORIGINAL EXAMINATION: SPOT FLUOROSCOPIC IMAGES 04/29/2023 1:12 pm TECHNIQUE: Fluoroscopy was provided by the radiology department for procedure. Radiologist was not present during examination. FLUOROSCOPY DOSE AND TYPE: Radiation Exposure Index: Referenced air kerma, 1.2 mGy COMPARISON: None HISTORY: ORDERING SYSTEM PROVIDED HISTORY: Reason for Exam: LT ANKLE FX Intraprocedural imaging. FINDINGS: Spot intraoperative images are obtained demonstrating left ankle external fixation. IMPRESSION: Intraprocedural fluoroscopic spot images as above. See separate procedure report for more information. I have personally reviewed the images of this examination and agree with the resident's finding and interpretation. Interpreted by: Dajuan Lam MD Preliminary Report By: Jay Patel Electronically signed By Dajuan Lam MD Dictated Date: 04/29/2023 4:14:02 PM Prelim Date: 04/29/2023 4:14:51 PM Sign Date: 04/29/2023 4:24:13 PM Ordering Provider: LINO Arora [facility] ([place]) .Auto Diffon 04-28-2023 Basophil, Absolute 0.0 10 3/mcL Normal 0.0-0.3 [facility] ([place]) Comment on above: Performed By: #### A CLARA, GFR, ADIFF, CBC, PRO, BMP #### [address] [address] Basophils/100 WBC (Bld) 0.3 % Normal 0.0-2.5 [facility] ([place]) Comment on above: Performed By: #### A CLARA, GFR, ADIFF, CBC, PRO, BMP #### [address] [address] Eosinophil, Absolute 0.0 10 3/mcL Normal 0.0-0.7 [facility] ([place]) Comment on above: Performed By: #### A CLARA, GFR, ADIFF, CBC, PRO, BMP #### [address] [address] Eosinophils/100 WBC (Bld) 0.4 % Normal 0.0-6.0 [facility] ([place]) Comment on above: Performed By: #### A CLARA, GFR, ADIFF, CBC, PRO, BMP #### [address] [address] Lymphocyte, Absolute 0.9 10 3/mcL Normal 0.9-4.3 [facility] ([place]) Comment on above: Performed By: #### A CLARA, GFR, ADIFF, CBC, PRO, BMP #### [address] [address] Lymphocytes/100 WBC (Bld) 9.3 % Low 20.0-40.0 [facility] ([place]) Comment on above: Performed By: #### A CLARA, GFR, ADIFF, CBC, PRO, BMP #### [address] [address] Monocyte, Absolute 0.6 10 3/mcL Normal 0.1-1.4 [facility] ([place]) Comment on above: Performed By: #### A CLARA, GFR, ADIFF, CBC, PRO, BMP #### [address] [address] Monocytes/100 WBC (Bld) 5.8 % Normal 2.0-13.0 [facility] ([place]) Comment on above: Performed By: #### A CLARA, GFR, ADIFF, CBC, PRO, BMP #### [address] [address] Neutrophils/100 WBC (Bld) 84.2 % High 50.0-75.0 [facility] ([place]) Comment on above: Performed By: #### A CLARA, GFR, ADIFF, CBC, PRO, BMP #### [address] [address] .GFRon 04-28-2023 GFR >60 Normal [facility] ([place]) Comment on above: Result Comment: GFR Population mean for , Non- Americans Ages 20-29 = 116 mL/min/1.73 sq.m. Ages 30-39 = 107 mL/min/1.73 sq.m. Ages 40-49 = 99 mL/min/1.73 sq.m. Ages 50-59 = 93 mL/min/1.73 sq.m. Ages 60-69 = 85 mL/min/1.73 sq.m. Ages 70+ = 75 mL/min/1.73 sq.m. Chronic Kidney Disease: Less than 60 mL/min/1.73 square meters End Stage Renal Disease: Less than 15 mL/min/1.73 square meters Performed By: #### A DIFF, CBC, PRO, GFR, ANEU, BMP #### [address] [address] GFR Non- >60 Normal [facility] ([place]) Comment on above: Result Comment: GFR Population mean for , Non- Americans Ages 20-29 = 116 mL/min/1.73 sq.m. Ages 30-39 = 107 mL/min/1.73 sq.m. Ages 40-49 = 99 mL/min/1.73 sq.m. Ages 50-59 = 93 mL/min/1.73 sq.m. Ages 60-69 = 85 mL/min/1.73 sq.m. Ages 70+ = 75 mL/min/1.73 sq.m. Chronic Kidney Disease: Less than 60 mL/min/1.73 square meters End Stage Renal Disease: Less than 15 mL/min/1.73 square meters Performed By: #### A DIFF, CBC, PRO, GFR, ANEU, BMP #### [address] [address] .NEUABSon 04-28-2023 Neutrophil, Absolute 8.1 10 3/mcL Normal 2.3-8.1 [facility] ([place]) Comment on above: Performed By: #### A CLARA, GFR, ADIFF, CBC, PRO, BMP #### [address] [address] BMPon 04-28-2023 BUN/Creatinine Ratio 27.6 ratio High 10.0-22.0 [facility] ([place]) Comment on above: Performed By: #### A DIFF, CBC, PRO, GFR, ANEU, BMP #### [address] [address] Calcium [Mass/Vol] 9.4 mg/dL Normal 8.7-10.4 [facility] ([place]) Comment on above: Performed By: #### A DIFF, CBC, PRO, GFR, ANEU, BMP #### [address] [address] Chloride [Moles/Vol] 105 mmol/L Normal 98-110 [facility] ([place]) Comment on above: Performed By: #### A DIFF, CBC, PRO, GFR, ANEU, BMP #### [address] [address] CO2 [Moles/Vol] 31 mmol/L Normal 22-32 [facility] ([place]) Comment on above: Performed By: #### A DIFF, CBC, PRO, GFR, ANEU, BMP #### [place] [id number] Creatinine [Mass/Vol] 0.76 mg/dL Normal 0.50-1.20 [facility] ([place]) Comment on above: Performed By: #### A DIFF, CBC, PRO, GFR, ANEU, BMP #### [place] [address] Electrolyte Balance 2.0 mEq/L Low 4.0-15.0 [facility] ([place]) Comment on above: Performed By: #### A DIFF, CBC, PRO, GFR, ANEU, BMP #### [place] [address] Glucose [Mass/Vol] 98 mg/dL Normal 82-115 [facility] ([place]) Comment on above: Performed By: #### A DIFF, CBC, PRO, GFR, ANEU, BMP #### [place] [address] Potassium [Moles/Vol] 4.9 mmol/L Normal 3.5-5.0 [facility] ([place]) Comment on above: Performed By: #### A DIFF, CBC, PRO, GFR, ANEU, BMP #### [place] [address] Sodium [Moles/Vol] 138 mmol/L Normal 136-145 [facility] ([place]) Comment on above: Performed By: #### A DIFF, CBC, PRO, GFR, ANEU, BMP #### [place] [id number] Urea nitrogen [Mass/Vol] 21.0 mg/dL Normal 8.0-22.0 [facility] ([place]) Comment on above: Performed By: #### A DIFF, CBC, PRO, GFR, ANEU, BMP #### [place] [address] CBCon 04-28-2023 Erythrocyte distribution width (RBC) [Ratio] 13.7 % Normal 11.5-15.5 [facility] ([place]) Comment on above: Performed By: #### A CLARA, GFR, ADIFF, CBC, PRO, BMP #### [address] [address] Hematocrit (Bld) [Volume fraction] 42.9 % Normal 34.0-46.0 [facility] ([place]) Comment on above: Performed By: #### A CLARA, GFR, ADIFF, CBC, PRO, BMP #### [place] [address] Hgb 14.3 G/dL Normal 12.0-16.0 [facility] ([place]) Comment on above: Performed By: #### A CLARA, GFR, ADIFF, CBC, PRO, BMP #### [place] [address] MCH (RBC) [Entitic mass] 27.7 pg Normal 27.0-33.0 [facility] ([place]) Comment on above: Performed By: #### A CLARA, GFR, ADIFF, CBC, PRO, BMP #### [place] [address] MCHC 33.2 G/dL Normal 32.0-36.0 [facility] ([place]) Comment on above: Performed By: #### A CLARA, GFR, ADIFF, CBC, PRO, BMP #### [place] [address] MCV (RBC) [Entitic vol] 83.2 fL Normal 80.0-99.0 [facility] ([place]) Comment on above: Performed By: #### A CLARA, GFR, ADIFF, CBC, PRO, BMP #### [place] [address] Platelet 248 10 3/mcL Normal 150-450 [facility] ([place]) Comment on above: Performed By: #### A CLARA, GFR, ADIFF, CBC, PRO, BMP #### [place] [address] Platelet mean volume (Bld) [Entitic vol] 8.3 fL Normal 6.6-10.5 [facility] ([place]) Comment on above: Performed By: #### A CLARA, GFR, ADIFF, CBC, PRO, BMP #### [place] [address] RBC 5.16 10 6/mcL Normal 4.10-5.30 [facility] ([place]) Comment on above: Performed By: #### A CLARA, GFR, ADIFF, CBC, PRO, BMP #### [place] [id number] [place] [address] WBC 9.7 10 3/mcL Normal 4.5-10.8 [facility] ([place]) Comment on above: Performed By: #### A CLARA, GFR, ADIFF, CBC, PRO, BMP #### [place] [id number] [place] [address] PROon 04-28-2023 INR Coag (PPP) [Relative time] 1.0 {INR} Normal [facility] ([place]) Comment on above: Result Comment: The [place] (CHEST, 1992, 102:312S-25S) recommended therapeutic range for oral anticoagulant therapy is: LOW RISK: Prophylaxis of venous thrombosis INR: 2.0-3.0 Treatment of pulmonary embolism 2.0-3.0 Prevention of systemic embolism 2.0-3.0 HIGH RISK: Mechanical prosthetic valves 2.5-3.5 Performed By: #### A DIFF, CBC, PRO, GFR, ANEU, BMP #### [address] [address] PT Coag (PPP) [Time] 11.2 s Normal 9.0-14.2 [facility] ([place]) Comment on above: Result Comment: Effe ctive 01/09/08, Protime results may be affected by some antibiotics (i.e. Ciprofloxacin, Azithromycin, Bactrim) which may potentiate the action of oral anticoagulants, with further increases in Protime/INR. Performed By: #### A DIFF, CBC, PRO, GFR, ANEU, BMP #### [address] [address] Basophil percentageon 2021 Basophil percentage < 0.9 mg/dL 0.55-1.02 [facility] Work Phone: Brain W/WO Contraston 2021 Brain W/WO Contrast [facility] Imaging Services [address] [place] [address] Brain W/WO Contrast MR#: [id number] Acct: [id number] Name: HECTOR SANCHEZ Rep #: [id number] : 1960 F 61 From: Lane Chin MD PCP: Dr. Aruna Bar MD Status: REG CLI Study: Brain W/WO Contrast Date of Exam: 04/15/22 Exam# [id number] Ordering Dr: Aruna Bar MD STUDY: MRI BRAIN WITH AND WITHOUT CONTRAST REASON FOR EXAM: Female, 61 years old. new occipital headache X 1 MONTH TECHNIQUE: Standardized multiplanar fat and water weighted pulse sequences were obtained. IV 19ml Clariscan was administered for the contrast portion of the examination. COMPARISON: None. FINDINGS: Normal size of the ventricles and extra-axial spaces for the patient''s age. Normal white matter tracts of the supratentorial brain. Normal bilateral basal ganglia. Normal thalami. There is no extra-axial fluid accumulation. Normal flow voids within the major intracranial circulation suggesting patency by spin echo criteria. Normal venous enhancement. There is no enhancing intra-axial or extra-axial abnormality. Normal sella turcica, pituitary gland, infundibular stalk, optic chiasm and hypothalamus. Normal tectal plate and pineal gland. Normal midbrain, john and medulla. Normal cerebellum. Normal basal cisterns. Normal bilateral temporal bones. Normal bilateral internal auditory canals. No demonstrated orbital abnormality, within the constraints of a routine brain study. Normal visualized paranasal sinuses. Normal calvarium and skull base. Normal visualized soft tissue structures. Normal visualized upper cervical spine. MRI/Brain W/WO Contrast IMPRESSION: Normal unenhanced and enhanced MRI of the brain. Electronically Signed: Lane Chin MD at 21:16 EDT , CC: Dr. Aruna Bar MD Contact Person: Signed [facility] CREATININE FINGERSTICKon CREATININE WB < 0.9 Normal 0.55-1.02 [facility] Comment on above: Performed By: #### L 9100.0200 #### [facility] [address] [place], [place], [address] EGFR WB > 60.0000 Normal >60 [facility] Comment on above: Performed By: #### L 9100.0200 #### [facility] [address] [place], [address] No Panel Informationon 04-15 Bedside Estimated GFR (eGFR) > 60.0000 mL/min >60 [facility] Work Phone: Vital Signs Date Time Vital Sign Value Performing Clinician Facility 09-12-2024 08:59-0400 Body temperature 97.59 [degF] Tuyet Luisa DO Work Phone: [facility] 09-12-2024 08:59-0400 Body weight 98.43 kg Tuyet Luisa DO Work Phone: [facility] 09-12-2024 08:59-0400 Diastolic blood pressure 85 mm[Hg] Tuyet Luisa DO Work Phone: [facility] 09-12-2024 08:59-0400 Heart rate 82 /min Tuyet Luisa DO Work Phone: [facility] 09-12-2024 08:59-0400 Respiratory rate 18 /min Tuyet Luisa DO Work Phone: [facility] 09-12-2024 08:59-0400 SaO2% (BldA) [Mass fraction] 97 % Tuyet Luisa DO Work Phone: [facility] 09-12-2024 08:59-0400 Systolic blood pressure 130 mm[Hg] Tuyet Luisa DO Work Phone: [facility] 04-29-2023 13:33-0400 Body temperature 97.52 [degF] LINO INSULATING MACHINE OPERATOR DO [address] [place] [address] 04-29-2023 13:33-0400 Diastolic Blood Pressure Non-Invasive 76 1 LINO INSULATING MACHINE OPERATOR DO [address] [place] [address] 04-29-2023 13:33-0400 Heart rate 88 /min LINO INSULATING MACHINE OPERATOR DO [address] [place] [address] 04-29-2023 13:33-0400 Respiratory rate 17 /min LINO INSULATING MACHINE OPERATOR DO [address] 04-29-2023 13:33-0400 Systolic Blood Pressure Non-Invasive 137 1 LINO INSULATING MACHINE OPERATOR DO [address] [place] [address] 04-29-2023 12:30-0400 Body temperature 97.16 [degF] LINO INSULATING MACHINE OPERATOR DO [address] [place] [address] 04-29-2023 12:30-0400 Diastolic Blood Pressure Non-Invasive 80 1 LINO INSULATING MACHINE OPERATOR DO [address] [place] [address] 04-29-2023 12:30-0400 Heart rate 73 /min LINO INSULATING MACHINE OPERATOR DO [address] [place] [address] 04-29-2023 12:30-0400 Respiratory rate 16 /min LINO INSULATING MACHINE OPERATOR DO [address] [place] [address] 04-29-2023 12:30-0400 Systolic Blood Pressure Non-Invasive 134 1 LINO INSULATING MACHINE OPERATOR DO [address] [place] [address] 04-29-2023 12:07-0400 Body temperature 97.16 [degF] LINO INSULATING MACHINE OPERATOR DO [address] [place] [address] 04-29-2023 12:07-0400 Diastolic Blood Pressure Non-Invasive 67 1 LINO INSULATING MACHINE OPERATOR DO [address] [place] [address] 04-29-2023 12:07-0400 Heart rate 78 /min LINO INSULATING MACHINE OPERATOR DO [address] [place] [address] 04-29-2023 12:07-0400 Mean blood pressure 86 mm[Hg] LINO INSULATING MACHINE OPERATOR DO [address] [place] [address] 04-29-2023 12:07-0400 Respiratory rate 16 /min LINO INSULATING MACHINE OPERATOR DO [address] [place] [address] 04-29-2023 12:07-0400 Systolic Blood Pressure Non-Invasive 133 1 LINO INSULATING MACHINE OPERATOR DO [address] [place] [address] 04-29-2023 11:54-0400 Heart rate 75 /min LINO INSULATING MACHINE OPERATOR DO [address] [place] [address] 04-29-2023 11:54-0400 Mean blood pressure 84 mm[Hg] LINO INSULATING MACHINE OPERATOR DO [address] [place] [address] 04-29-2023 11:39-0400 Heart rate 84 /min LINO INSULATING MACHINE OPERATOR DO [address] [place] [address] 04-29-2023 11:39-0400 Mean blood pressure 90 mm[Hg] LINO INSULATING MACHINE OPERATOR DO [address] [place] [address] 04-29-2023 11:10-0400 Body temperature 98.06 [degF] LINO INSULATING MACHINE OPERATOR DO [address] [place] [address] 04-29-2023 11:05-0400 Respiratory Rate - Anes 0 br/min LINO INSULATING MACHINE OPERATOR DO [address] [place] [address] 04-29-2023 11:00-0400 Body temperature 97.57 [degF] LINO INSULATING MACHINE OPERATOR DO [address] [place] [address] 04-29-2023 11:00-0400 Respiratory Rate - Anes 13 br/min LINO INSULATING MACHINE OPERATOR DO [address] [place] [address] 04-29-2023 10:55-0400 Body temperature 97.48 [degF] LINO INSULATING MACHINE OPERATOR DO [address] [place] [address] 04-29-2023 10:55-0400 Respiratory Rate - Anes 14 br/min LINO INSULATING MACHINE OPERATOR DO [address] [place] [address] 04-29-2023 10:50-0400 Body temperature 97.3 [degF] LINO INSULATING MACHINE OPERATOR DO [facility] 04-29-2023 09:14-0400 Body height 170.2 cm LINO HARPER DO [facility] 04-29-2023 09:14-0400 Body weight 105 kg LINO HARPER DO [facility] 04-29-2023 09:14-0400 Heart rate 78 /min LINO HARPER DO [facility] 11-20-2021 10:45-0400 Diastolic blood pressure 71 mm[Hg] DR CESARIO WONG MD [facility] 11-20-2021 10:45-0400 Heart rate 73 /min DR CESARIO WONG MD [facility] 11-20-2021 10:45-0400 Mean blood pressure 92 mm[Hg] DR CESARIO WONG MD [facility] 11-20-2021 10:45-0400 Systolic blood pressure 134 mm[Hg] DR CESARIO WONG MD [facility] Encounters Encounter Date Encounter Type Care Provider Facility Start: 02-26-2025 ambulatory LINO HARPER DO Facili ty:[facility] Start: 01-31-2025 End: 01-31-2025 Emergency department patient visit DAPHNEY JUARESParul DANIELS [facility] Start: 01-16-2025 End: 01-18-2025 ambulatory KECIA DUVAL MD Facility:A Start: 01-16-2025 End: 01-18-2025 Observation MARISABEL BLANCAS MD [facility] Start: 01-16-2025 End: 01-16-2025 Emergency department patient visit DR COOKIE JAMES MD [facility] Start: 01-02-2025 End: 01-02-2025 ambulatory TUYET Patricia RANDY PIERCE Facility:[facility] Start: 01-02-2025 End: 01-02-2025 Patient encounter procedure MS TUYET Gomez RANDY PIERCE [facility] Start: 10-01-2024 End: 12-11-2024 Admission to same day surgery center ALKA CUNNINGHAM III, MD [facility] Start: 10-01-2024 End: 12-11-[address] ARUNA BAR MD Facility:[facility] Start: 09-12-2024 End: 09-12-2024 Office outpatient new 30 minutes Tuyet Courtney DO Work Phone: [facility] [place] Comment on above: Sinobronchitis (Prim david Dx) Start: 09-12-2024 End: 09-12-2024 ambulatory SELF Facility:[id number] Start: 07-03-2024 End: 08-27-[address] ARUNA BAR MD Facility:[facility] Start: 07-03-2024 End: 08-27-2024 Physical therapy management JULIA BEEBE PA-C [facility] Start: 01-30-2024 End: 01-30-2024 ambulatory EHSAN IRAJ PRELOAD SUPERVISOR-ACQUISITION COST ESTIMATOR Facility:A Start: 01-30-2024 End: 01-30-2024 Patient encounter procedure EHSAN GALO PRELOAD SUPERVISOR-ACQUISITION COST ESTIMATOR [facility] Start: 12-13-2023 End: 12-13-2023 ambulatory EHSAN GALO PRELOAD SUPERVISOR-ACQUISITION COST ESTIMATOR Facility:[facility] Start: 06-28-2023 End: 10-11-2023 ambulatory LINO HARPER DO Facility:[facility] Start: 06-28-2023 End: 10-11-2023 Physical therapy management LINO INSULATING MACHINE OPERATOR DO [facility] Start: 05-02-2023 End: 05-02-2023 ambulatory LINO INSULATING MACHINE OPERATOR DO Facility:[facility] Start: 04-29-2023 End: 04-29-2023 ambulatory LINO INSULATING MACHINE OPERATOR DO Facility:A Start: 04-29-2023 End: 04-29-2023 SAME DAY STAY LINO INSULATING MACHINE OPERATOR DO [facility] Start: 04-28-2023 End: 04-28-2023 ambulatory LINO INSULATING MACHINE OPERATOR DO Facility:A Start: 05-04-2022 End: 05-04-[address] ARUNA BAR MD [facility] Start: 04-22-2022 End: 07-13-[address] ARUNA BAR MD [facility] Start: 04-15-2022 End: 04-15-2022 Patient encounter procedure [facility] Start: 04-15-2022 End: 04-15-2022 ambulatory Aruna Bar [facility] Work Phone: Start: 11-20-2021 End: 11-20-[address] CESARIO WONG MD [facility] Procedures Date Procedure Procedure Detail Performing Clinician Start: 04-15-2022 MRI of brain with contrast Start: 03-04-[address] CESARIO WONG MD Appendectomy DR CESARIO Dyer MD Ligation of fallopian tube Jhon WONG MD Operation on ganglion cyst Jhon WONG MD Comment on above: Left wrist Tonsillectomy DR CESARIO POSEY MD Plan of Treatment Date Care Activity Detail Author Start: 2035 RSV Vaccine (1 - 1-d ose 75+ series) RSV Vaccine (1 - 1-dose 75+ series) [facility] Start: 04-08-2025 Urine microalbumin profile DTaP,Tdap,Td Vaccine (2 - Td or Tdap) [facility] Start: 02-26-2024 Covid-19 Vaccine () Covid-19 Vaccine ( season) [facility] Start: 02-26-2024 Influenza vaccination Influenza Vacc ine (#1) [facility] Start: 2010 Pneumococcal Vaccine : 50+ (1 of 1 - PCV) Pneumococcal Vaccine: 50+ (1 of 1 - PCV) [facility] Start: 2010 Shingrix Vaccine (1 of 2) Shingrix V accine (1 of 2) [facility] Start: 2005 Diabetes Screening Diabetes Screenin g [facility] Start: 2005 Lipid panel Lipid Screening [facility] Start: 2005 Screening for malign ant neoplasm of colon [facility] Start: 2000 Screening for malign ant neoplasm of breast Mammogram Screening [facility] Start: 1981 Screening for malign ant neoplasm of cervix Cervical Cancer Screening [facility] Start: 1978 Anxiety Screening Anxiety Screening [facility] Start: 1978 Depression Screening Depression Scre ening [facility] Start: 1978 Hepatitis C screening Hepatitis C Sc reening [facility] Start: 1978 HIV screening HIV Screening [facility] Immunizations Immunization Date Immunization Notes Care Provider Fa cility 11-30-2024 pneumococcal 21-balaji nt [id number] DR COOKIE JAMES MD [facility] 11-30-2024 tetanus toxoid, redu viktor diphtheria toxoid, and acellular pertussis vaccine, adsorbed DR COOKIE JAMES MD [facility] 05-14-2021 SARS-CoV-2 (COVID-19 ) mRNA-[address] COOKIE JAMES MD [facility] Comment on above: Result Comment: 2024: [id number] 07-23-2020 SARS-CoV-2 (COVID-19 ) mRNA-[address] COOKIE JAMES MD [facility] Comment on above: Result Comment: 2024: [id number] 06-25-2020 SARS-CoV-2 (COVID-19 ) mRNA-[address] COOKIE JAMES MD [facility] Comment on above: Result Comment: 2024: [id number] 04-12-2016 influenza virus vacc ine, unspecified formulation Tuyet Luisa DANIELS Work Phone: [facility] 04-08-2015 influenza virus vacc ine, unspecified formulation DR COOKIE JAMES MD [facility] 04-08-2015 tetanus toxoid, redu viktor diphtheria toxoid, and acellular pertussis vaccine, adsorbed DR COOKIE JAMES MD [facility] Payers Date Payer Category Payer Private Health Insurance [id number] 2023 Unknown [id number] 2022 Unknown [id number] 2022 Self-pay [id number] 2021 [facility] [employer] BS FEP PPO [id number] 2021 Unknown [id number] 1960 Unknown [id number] [id number]. 2.627 1960 Unknown [id number] 2.16.840.1.020078.3.579. 2.627 1960 Unknown [id number] 2.16.840.1.186071.3.579. 2.627 1960 Unknown [id number] 2.16.840.1.201885.3.579. 2.627 1960 Unknown [id number] 2.16.840.1.113421.3.579. 2.627 1960 Unknown [id number] 2.16.840.1.226309.3.579. 2.627 1960 Unknown [id number] 2.16.840.1.834891.3.579. 2.627 1960 Unknown [id number] 2.16.840.1.491275.3.579. 2.627 1960 Unknown [id number] 2.16.840.1.865487.3.579. 2.627 1960 Unknown [id number] 2.16.840.1.566853.3.579. 2.627 1960 Unknown [id number] 2.16.840.1.470621.3.579. 2.627 1960 Unknown [id number] 2.16.840.1.334465.3.579. 2.627 1960 Unknown [id number] 2.16.840.1.522011.3.579. 2.627 Unknown [facility] [id number] Unknown [id number] [id number]. 2.462 Social History Date Type Detail Facility Start: 02-28-2020 End: 09-12-2024 Tobacco smoking status Never smoked tobacco (finding) [facility] Sex Assigned At [facility] Start: 1960 Sex Assigned At Female [facility] Work Phone: Start: 05-04-2017 Sex Female (finding) [facility] Start: 09-12-2024 Tobacco use and exposure Smokeless tobacco non-user [facility] Start: 09-12-2024 Alcoholic beverage intake Ex-drinker (finding) [facility] Start: 09-12-2024 History of Social function [facility] Start: 09-12-2024 Tobacco use panel [facility] Adult Depression Screening Assessment 0 [facility] Start: 1960 Sex assigned at [facility] NEGATED: Highlighted rowStart: NINF History of tobacco use Passive smoker [facility] Medical Equipment Procedure Code Equipment Code Equipment Origin al Text Equipment Identifier Dates Extremity Sweatband Separator al Fixator Application L Unknown 04/29/23 Unknown Unknown FDA Start: 04-29-2023 Extremity Sweatband Separator al Fixator Application L Unknown 04/29/23 Unknown Unknown FDA Start: 04-29-2023 Extremity Sweatband Separator al Fixator Application L Unknown 04/29/23 Unknown Unknown FDA Start: 04-29-2023 Extremity Sweatband Separator al Fixator Application L Unknown 04/29/23 Unknown Unknown FDA Start: 04-29-2023 Extremity Sweatband Separator al Fixator Application L Unknown 04/29/23 Unknown Unknown FDA Start: 04-29-2023 Extremity Sweatband Separator al Fixator Application L Unknown 04/29/23 Unknown Unknown FDA Start: 04-29-2023 Extremity Sweatband Separator al Fixator Application L Unknown 04/29/23 Unknown Unknown FDA Start: 04-29-2023 Extremity Sweatband Separator al Fixator Application L Unknown 04/29/23 Unknown Unknown FDA Start: 04-29-2023 Extremity Sweatband Separator al Fixator Application L Unknown 04/29/23 Unknown Unknown FDA Start: 04-29-2023 Extremity Sweatband Separator al Fixator Application L Unknown 04/29/23 Unknown Unknown FDA Start: 04-29-2023 Extremity Sweatband Separator al Fixator Application L Unknown 04/29/23 Unknown Unknown FDA Start: 04-29-2023 Extremity Sweatband Separator al Fixator Application L Unknown 04/29/23 Unknown Unknown FDA Start: 04-29-2023 Extremity Sweatband Separator al Fixator Application L Unknown 04/29/23 Unknown Unknown FDA Start: 04-29-2023 Extremity Sweatband Separator al Fixator Application L Unknown 04/29/23 Unknown Unknown FDA Start: 04-29-2023 Extremity Sweatband Separator al Fixator Application L Unknown 04/29/23 Unknown Unknown FDA Start: 04-29-2023 Extremity Sweatband Separator al Fixator Application L Unknown 04/29/23 Unknown Unknown FDA Start: 04-29-2023 Extremity Sweatband Separator al Fixator Application L Unknown 04/29/23 Unknown Unknown FDA Start: 04-29-2023 Extremity Sweatband Separator al Fixator Application L Unknown 04/29/23 Unknown Unknown FDA Start: 04-29-2023 Extremity Sweatband Separator al Fixator Application L Unknown 04/29/23 Unknown Unknown FDA Start: 04-29-2023 Extremity Sweatband Separator al Fixator Application L Unknown 04/29/23 Unknown Unknown FDA Start: 04-29-2023 Extremity Sweatband Separator al Fixator Application L Unknown 04/29/23 Unknown Unknown FDA Start: 04-29-2023 Extremity Sweatband Separator al Fixator Application L Unknown 04/29/23 Unknown Unknown FDA Start: 04-29-2023 Extremity Sweatband Separator al Fixator Application L Unknown 04/29/23 Unknown Unknown FDA Start: 04-29-2023 Extremity Sweatband Separator al Fixator Application L Unknown 04/29/23 Unknown Unknown FDA Start: 04-29-2023 Extremity Sweatband Separator al Fixator Application L Unknown 04/29/23 Unknown Unknown FDA Start: 04-29-2023 Extremity Sweatband Separator al Fixator Application L Unknown 04/29/23 Unknown Unknown FDA Start: 04-29-2023 Extremity Sweatband Separator al Fixator Application L Unknown 04/29/23 Unknown Unknown FDA Start: 04-29-2023 Extremity Sweatband Separator al Fixator Application L Unknown 04/29/23 Unknown Unknown FDA Start: 04-29-2023 Extremity Sweatband Separator al Fixator Application L Unknown 04/29/23 Unknown Unknown FDA Start: 04-29-2023 Extremity Sweatband Separator al Fixator Application L Unknown 04/29/23 Unknown Unknown FDA Start: 04-29-2023 Extremity Sweatband Separator al Fixator Application L Unknown 04/29/23 Unknown Unknown FDA Start: 04-29-2023 Extremity Sweatband Separator al Fixator Application L Unknown 04/29/23 Unknown Unknown FDA Start: 04-29-2023 Extremity Sweatband Separator al Fixator Application L Unknown 04/29/23 Unknown Unknown FDA Start: 04-29-2023 Extremity Sweatband Separator al Fixator Application L Unknown 04/29/23 Unknown Unknown FDA Start: 04-29-2023 Extremity Sweatband Separator al Fixator Application L Unknown 04/29/23 Unknown Unknown FDA Start: 04-29-2023 Extremity Sweatband Separator al Fixator Application L Unknown 04/29/23 Unknown Unknown FDA Start: 04-29-2023 Extremity Sweatband Separator al Fixator Application L Unknown 04/29/23 Unknown Unknown FDA Start: 04-29-2023 Extremity Sweatband Separator al Fixator Application L Unknown 04/29/23 Unknown Unknown FDA Start: 04-29-2023 Extremity Sweatband Separator al Fixator Application L Unknown 04/29/23 Unknown Unknown FDA Start: 04-29-2023 Extremity Sweatband Separator al Fixator Application L Unknown 04/29/23 Unknown Unknown FDA Start: 04-29-2023 Extremity Sweatband Separator al Fixator Application L Unknown 04/29/23 Unknown Unknown FDA Start: 04-29-2023 Extremity Sweatband Separator al Fixator Application L Unknown 04/29/23 Unknown Unknown FDA Start: 04-29-2023 Extremity Sweatband Separator al Fixator Application L Unknown 04/29/23 Unknown Unknown FDA Start: 04-29-2023 Extremity Sweatband Separator al Fixator Application L Unknown 04/29/23 Unknown Unknown FDA Start: 04-29-2023 Extremity Sweatband Separator al Fixator Application L Unknown 04/29/23 Unknown Unknown FDA Start: 04-29-2023 Extremity Sweatband Separator al Fixator Application L Unknown 04/29/23 Unknown Unknown FDA Start: 04-29-2023 Extremity Sweatband Separator al Fixator Application L Unknown 04/29/23 Unknown Unknown FDA Start: 04-29-2023 Extremity Sweatband Separator al Fixator Application L Unknown 04/29/23 Unknown Unknown FDA Start: 04-29-2023 Extremity Sweatband Separator al Fixator Application L Unknown 04/29/23 Unknown Unknown FDA Start: 04-29-2023 Extremity Sweatband Separator al Fixator Application L Unknown 04/29/23 Unknown Unknown FDA Start: 04-29-2023 Extremity Sweatband Separator al Fixator Application L Unknown 04/29/23 Unknown Unknown FDA Start: 04-29-2023 Extremity Sweatband Separator al Fixator Application L Unknown 04/29/23 Unknown Unknown FDA Start: 04-29-2023 Extremity Sweatband Separator al Fixator Application L Unknown 04/29/23 Unknown Unknown FDA Start: 04-29-2023 Extremity Sweatband Separator al Fixator Application L Unknown 04/29/23 Unknown Unknown FDA Start: 04-29-2023 Functional Status Date Assessment Result Facility 04-29-2023 Functional Status Minimum assistance [facility] 04-29-2023 Functional Status Standard Safet y ID band on, Call device within reach, Bed in low position [facility] 04-29-2023 Functional Status ice on [facility] 04-29-2023 Functional Status Sensory Deficits None [facility] 04-22-2022 Functional Status Home Living Ad ditional Information Objective: Cardiovascular Screen: BP: 122/82 HR: 86 BPM O2 sat: 95% Observation: no nystagmus present, some mod forward head posture and excess thoracic kyphosis Cervical AROM: Flex: mod loss Ext: mod loss Retraction: mod loss, Rotation: R: mod loss L: mod loss MMT: see chart Palpation: TTP sub nuchal line Special Tests: Sharp Esperanza: some tenderness but no change in symptoms Alar Ligament:- , Vertebral Artery: NT , Neural Tension: NT Segmental Motion:NT Sensation: Grossly intact and symmetrical to light touch on bilat UE and LE's Reflexes: 1+ bilat biceps, triceps 1+ bilat, 1+ bilat patellar and achilles, Negative hoffmans reflex and inverted supinator bilat. Other: [facility] 11-20-2021 Functional Status [facility] Mental Status Date Assessment Result Facility 04-29-2023 Mental Status Orientation Oriented x 4 [facility] 04-29-2023 Mental Status [facility] Clinical Notes 11-20-2021 to 01-31-2025 Note Date & Type Note Facility 01-31-2025 Hospital Discharg e instructions Patient Education 01/31/2025 09:31:06 Pneumonia (Adult) Pneumonia (Adult) Pneumonia is an infection deep within the lungs. It is in the small air sacs (alveoli). Pneumonia may be caused by a virus or bacteria. Pneumonia caused by bacteria is usually treated with an antibiotic. Severe cases may need to be treated in the hospital. Milder cases can be treated at home. Symptoms usually start to get better during the first 2 days of treatment. Home care Follow these guidelines when caring for yourself at home: Rest at home for the first 2 to 3 days, or until you feel stronger. Don t let yourself get overly tired when you go back to your activities. Stay away from cigarette smoke yours or other people s. You may use acetaminophen or ibuprofen to control fever or pain, unless another medicine was prescribed. If you have chronic liver or kidney disease, talk with your healthcare provider before using these medicines. Also talk with your provider if you ve had a stomach ulcer or gastrointestinal bleeding. Don t give aspirin to anyone younger than 18 years of age who is ill with a fever. It may cause severe liver damage. Your appetite may be poor, so a light diet is fine. Drink 6 to 8 glasses of fluids every day to make sure you are getting enough fluids. Beverages can include water, sport drinks, sodas without caffeine, juices, tea, or soup. Fluids will help loosen secretions in the lung. This will make it easier for you to cough up the phlegm (sputum). If you also have heart or kidney disease, check with your healthcare provider before you drink extra fluids. Take antibiotic medicine prescribed until it is all gone, even if you are feeling better after a few days. Follow-up care Follow up with your healthcare provider in the next 2 to 3 days, or as advised. This is to be sure the medicine is helping you get better. If you are 65 or older, you should get a pneumococcal vaccine and a yearly flu (influenza) shot. You should also get these vaccines if you have chronic lung disease like asthma, emphysema, or COPD. Recently, a second type of pneumonia vaccine has become available for everyone over 65 years old. This is in addition to the previous vaccine. Ask your provider about this. When to seek medical advice Call your healthcare provider right away if any of these occur: You don t get better within the first 48 hours of treatment Shortness of breath gets worse Rapid breathing (more than 25 breaths per minute) Coughing up blood Chest pain gets worse with breathing Fever of 100.4 F (38 C) or higher that doesn t get better with fever medicine Weakness, dizziness, or fainting that gets worse Thirst or dry mouth that gets worse Sinus pain, headache, or a stiff neck Chest pain not caused by coughing [id number] [employer]. [address] [place] [address], [place] [address]. All rights reserved. This information is not intended as a substitute for professional medical care. Always follow your healthcare professional's instructions. Follow Up Care 01/31/2025 07:33:32 With:ARUNA BAR MD Address: [address] [place] [id number] When:2-4 days [facility] 01-31-2025 Note Discharge Instructions Thank you for allowing [facility] to assist you with your healthcare needs. The following is important discharge information regarding your hospital visit. Diagnosis from Today's Visit Cough What to Do Next Instructions from Your Care Team No qualifying data available. Post Acute Orders No qualifying data available. You Need to Schedule the Following Appointments Follow Up with ARUNA BAR MD When:Within 2-4 days Where:[address] [place] [address] [id number]- Allergies Contrast dye Hives Medications Please ask your primary doctor or pharmacist before taking any other medication not listed, including over the counter drugs, herbal medications, vitamins and or supplements as they may interact with your home medications. What How Much When Instructions Last Dose New albuterol (albuterol MDI (90 mcg/ inh) CFC free inhalation aerosol) 2 puff(s) by inhalation Every 4 hours Printed Prescription New doxycycline (doxycycline hyclate 100 mg oral capsule) 1 cap by mouth Two (2) times a day Duration: 7 Days Printed Prescription New predniSONE (predniSONE 20 mg oral tablet) 3 tab(s) by mouth Once a day Duration: 4 Days Printed Prescription Unchanged acetaminophen (Tylenol) 1,000 Milligram by mouth Every 8 hours as needed for as needed for pain Unchanged acetaminophen-hydrocodone (Williamson 325- 5 mg oral tablet) 2 tab(s) by mouth Every 4 hours as needed for Pain, scale 7-10 Unchanged apixaban (Eliquis Starter Pack for Treatment of DVT and PE 5 mg oral tablet) [10mg BID x 7days-then 5mg BID] by mouth Two (2) times a day Duration: 30 Days Unchanged gabapentin 300 Milligram by mouth Daily at bedtime Unchanged pantoprazole (Protonix 40 mg oral enteric coated tablet) 1 tab(s) by mouth Once a day before a meal Duration: 30 Days Please take this list to your next doctor s visit. Bring all medications you take, including over the counter medications, herbals and other supplements with you to your doctor s visit. Patients and families are reminded to discard old lists and to update any records with all medication providers or retail pharmacies. Medication Leaflets albuterol inhalation (al BUE ter ol) ProAir Digihaler, ProAir RespiClick, Ventolin HFA What is the most important information I should know about albuterol inhalation? Use only as directed. Tell your doctor if you use other medicines or have other medical conditions or allergies. What is albuterol inhalation? Albuterol inhalers are used in adults and children at least 4 years old to to treat or prevent narrowing and swelling inside the lungs (bronchospasm) that may cause breathing problems. Albuterol inhalers are also used to prevent breathing problems while exercising. Albuterol inhalation solution is used to treat acute bronchospasm attacks in children at least 2 years old with asthma. Albuterol inhalation may also be used for purposes not listed in this medication guide. What should I discuss with my healthcare provider before using albuterol inhalation? You should not use this medicine if you are allergic to albuterol inhalation. Do not use albuterol inhalation powder (ProAir RespiClick or ProAir Digihaler) if you are allergic to lactose or milk proteins. Tell your doctor if you have ever had: heart problems, high blood pressure; a thyroid disorder; seizures; if you have used an MAO inhibitor in the past 14 days, such as isocarboxazid, linezolid, methylene blue injection, phenelzine, or tranylcypromine; diabetes; or low blood levels of potassium. If you are , your name may be listed on a registry to track the effects of albuterol inhalation on the baby. Tell your doctor if you are or plan to become . It is not known whether albuterol inhalation will harm an unborn baby. However, having uncontrolled asthma during may increase the risk of premature , low weight, or eclampsia (dangerously high blood pressure that can lead to medical problems in both mother and baby). The benefit of preventing bronchospasm may outweigh any risks to the baby. Do not allow a young child to use albuterol inhalation without help from an adult. How should I use albuterol inhalation? Follow the directions on your prescription label and read all medication guides or instruction sheets. Use the medicine exactly as directed. Do not use the medicine more often than prescribed. Your dose needs may change if you switch to a different brand, strength, or form of this medicine. Avoid medication errors by using exactly as directed on the label, or as prescribed by your doctor. The effects of albuterol inhalation last about 4 to 6 hours. To prevent exercise-induced bronchospasm, use this medicine 15 to 30 minutes before you exercise. Talk with your doctor if you need to time your dosing around any planned activities. Read and carefully follow any instructions for preparing and using the medicine for the first time and for following doses. Ask your doctor or pharmacist if you do not understand these instructions. Your dose needs may change due to surgery, illness, stress, or a recent asthma attack. Do not change your dose or stop using asthma medication without your doctor's advice. Tell your doctor if your medicine seems to stop working. Call your doctor if your symptoms do not improve, or if they get worse. Keep the cover on your inhaler closed when not in use. Store away from open flame or high heat. Do not puncture or burn an empty canister. Do not take apart an inhaler device, wash, or put any part of your inhaler in water. Follow all storage and cleaning instructions provided with your inhaler. Your pharmacist can provide more information about how to store this medicine. Get your prescription refilled before you run out of medicine completely. Always use the new inhaler device provided. Store unused albuterol solution vials in the foil pouch at room temperature away from moisture, heat and light. Call your pharmacist if the medicine looks cloudy, has changed colors or has particles in it. Albuterol inhalation solution is stable for only a certain number of days or weeks after being removed from the foil pouch. Throw away any medicine not used within that time. Talk to your pharmacist if you have any questions. What happens if I miss a dose? Use the medicine as soon as you can, but skip the missed dose if it is almost time for your next dose. Do not use two doses at one time. What happens if I overdose? Seek emergency medical attention or call the Poison Help line at . An overdose of albuterol can be fatal. Overdose symptoms may include dry mouth, tremors, chest pain, fast heartbeats, nausea, general ill feeling, seizure, feeling light-headed or fainting. What should I avoid while using albuterol inhalation? Avoid using other fast-acting rescue medications or asthma medications with albuterol inhalation unless you doctor tells you to. Avoid getting this medicine in your eyes. What are the possible side effects of albuterol inhalation? Get emergency medical help if you have signs of an allergic reaction: hives, difficult breathing, swelling of your face, lips, tongue, or throat. Albuterol inhalation may increase the risk of asthma-related or hospitalization. Use only the prescribed dose and follow all instructions for safe use. Call your doctor at once if you have: wheezing, choking, or other breathing problems after using this medicine; chest pain, fast heart rate, pounding heartbeats or fluttering in your chest; severe headache, pounding in your neck or ears; high blood sugar--increased thirst, increased urination, dry mouth, fruity breath odor; or low blood potassium--leg cramps, constipation, irregular heartbeats, fluttering in your chest, increased thirst or urination, numbness or tingling, muscle weakness or limp feeling. Common side effects may include: chest pain, fast or pounding heartbeats; pain and burning when you urinate; upset stomach, vomiting; dizziness; tremors or shaking, nervousness; headache, back pain, body aches; or cough, sore throat, sinus pain, runny or stuffy nose. This is not a complete list of side effects and others may occur. Call your doctor for medical advice about side effects. You may report side effects to FDA at 2-027-MMX-3345. What other drugs will affect albuterol inhalation? Tell your doctor about all your other medicines, especially: any other inhaled medicines or bronchodilators such as ipratropium o tiotropium; digoxin; epinephrine; a diuretic ('water pill') an antidepressant--amitriptyline, desipramine, imipramine, doxepin, nortriptyline, and others; a beta melly--atenolol, carvedilol, labetalol, metoprolol, nadolol, nebivolol, propranolol, sotalol, and others; or an MAO inhibitor--isocarboxazid, linezolid, methylene blue injection, phenelzine, tranylcypromine, and others. This list is not complete. Other drugs may affect albuterol inhalation, including prescription and [id number] medicines, vitamins, and herbal products. Not all possible drug interactions are listed here. Where can I get more information? Your doctor or pharmacist can provide more information about albuterol inhalation. Remember, keep this and all other medicines out of the reach of children, never share your medicines with others, and use this medication only for the indication prescribed. Every effort has been made to ensure that the information provided by [employer]. ('[employer]') is accurate, up-to-date, and complete, but no guarantee is made to that effect. Drug information contained herein may be time sensitive. [employer] information has been compiled for use by healthcare practitioners and consumers in the [place] and therefore [employer] does not warrant that uses outside of the [place] are appropriate, unless specifically indicated otherwise. [employer] drug information does not endorse drugs, diagnose patients or recommend therapy. [employer] drug information is an informational resource designed to assist licensed healthcare practitioners in caring for their patients and/or to serve consumers viewing this service as a supplement to, and not a substitute for, the expertise, skill, knowledge and judgment of healthcare practitioners. The absence of a warning for a given drug or drug combination in no way should be construed to indicate that the drug or drug combination is safe, effective or appropriate for any given patient. [employer] does not assume any responsibility for any aspect of healthcare administered with the aid of information [employer] provides. The information contained herein is not intended to cover all possible uses, directions, precautions, warnings, drug interactions, allergic reactions, or adverse effects. If you have questions about the drugs you are taking, check with your doctor, nurse or pharmacist. Copyright 2937-4589 [employer] Version: 11.. Revision Date: 02/06/2024. doxycycline (oral/injection) (DOX i SOFIA fox) Acticlate, Adoxa, Alodox, Avidoxy, Doryx, Lymepak, Mondoxyne NL, Monodox, Morgidox, Okebo, Oracea, Targadox What is the most important information I should know about doxycycline? You should not take this medicine if you are allergic to any tetracycline antibiotic. Children younger than 8 years old should use doxycycline only in cases of severe or life-threatening conditions. This medicine can affect tooth development and growth and cause permanent yellowing or graying of the teeth in children. Using doxycycline during could harm the unborn baby or cause permanent tooth discoloration later in the baby's life. What is doxycycline? Doxycycline is used to treat many different bacterial infections, such as acne, urinary tract infections, intestinal infections, respiratory infections, eye infections, certain sexually transmitted infections, periodontitis (gum disease), and others. Doxycycline is also used to treat blemishes, bumps, and acne-like lesions caused by rosacea. Doxycycline will not treat facial redness caused by rosacea. Some forms of doxycycline are used to prevent malaria, to treat anthrax, or to treat infections caused by mites, ticks, or lice. Doxycycline may also be used for purposes not listed in this medication guide. What should I discuss with my healthcare provider before using doxycycline? You should not use this medicine if you are allergic to doxycycline or other tetracycline antibiotics such as demeclocycline, minocycline, tetracycline, or tigecycline. Tell your doctor if you have or have ever had: increased pressure inside your skull; diarrhea or diarrhea that is watery; stomach surgery; vision problems; vagina infection; take iron supplements, multivitamins, calcium supplements, laxatives, medicine containing bismuth subsalicylate, or antacids containing aluminum, calcium, or magnesium; use a proton pump inhibitor (such as omeprazole, esomeprazole, Nexium, Prevacid, Prilosec, or Protonix); if you also take isotretinoin or acitretin, seizure medicine, or a blood thinner such as warfarin (Coumadin); or liver or kidney disease. If you are using doxycycline to treat gonorrhea, your doctor may test you to make sure you do not also have syphilis, another sexually transmitted disease. Taking this medicine during may affect tooth and bone development in the unborn baby. Taking doxycycline during the last half of can cause permanent tooth discoloration later in the baby's life. Tell your doctor if you are or plan to become . Doxycycline can make control pills less effective. Ask your doctor about other control options such as an injection, implant, skin patch, vaginal ring, condom, diaphragm, cervical cap, or contraceptive sponge. Doxycycline can pass into breast milk and may affect bone and tooth development in a nursing . Do not breastfeed while you are taking doxycycline, and for at least 5 days after your last dose. Doxycycline can affect tooth development and growth and cause permanent yellowing or graying of the teeth in children younger than 8 years old. Children should use doxycycline only in cases of severe or life-threatening conditions such as anthrax or [place] spotted fever. The benefit of treating a serious condition may outweigh any risks to the child's tooth development. How should I use doxycycline? Follow all directions on your prescription label and read all medication guides or instruction sheets. Use the medicine exactly as directed. Your doctor will perform tests to make sure doxycycline is the right treatment for you. Take doxycycline with a full glass of water. Drink plenty of liquids while you are taking doxycycline. Most brand forms of doxycyline may be taken with food or milk if the medicine upsets your stomach. Different brand forms of doxycycline may have different instructions about taking them with or without food. Take Oracea on an empty stomach, at least 1 hour before or 2 hours after a meal. Swallow a delayed-release capsule or tablet whole. Do not crush, chew, break, or open it. Measure liquid medicine with the supplied measuring device (not a kitchen spoon). If you take doxycycline to prevent malaria: Start taking the medicine 1 or 2 days before entering an area where malaria is common. Continue taking the medicine every day during your stay and for at least 4 weeks after you leave the area. Doxycycline may be given as an infusion into a vein. A healthcare provider will give you this injection. Keep using this medicine even if your symptoms quickly improve. Skipping doses could make your infection resistant to medication. Doxycycline will not treat a viral infection (flu or a common cold). Store at room temperature away from moisture, heat, and light. What happens if I miss a dose? Call your doctor for instructions if you miss a dose or if you miss an appointment for your doxycycline injection. What happens if I overdose? Seek emergency medical attention or call the Poison Help line at . What should I avoid while using doxycycline? Do not take iron supplements, multivitamins, calcium supplements, laxatives, bismuth subsalicylate, or antacids containing aluminum, calcium, or magnesium within 2 hours before or after using doxycycline. Avoid taking any other antibiotics with doxycycline unless your doctor has told you to. Doxycycline could make you sunburn more easily. Avoid sunlight or tanning beds. Wear protective clothing and use sunscreen (SPF 30 or higher) when you are outdoors. Antibiotic medicines can cause diarrhea, which may be a sign of a new infection. If you have diarrhea that is watery or bloody, call your doctor. Do not use anti-diarrhea medicine unless your doctor tells you to. What are the possible side effects of doxycycline? Get emergency medical help if you have signs of an allergic reaction (hives, difficult breathing, swelling in your face or throat) or a severe skin reaction (fever, sore throat, burning eyes, skin pain, red or purple skin rash with blistering and peeling). Seek medical treatment if you have a serious drug reaction that can affect many parts of your body. Symptoms may include: skin rash, fever, swollen glands, flu-like symptoms, muscle aches, severe weakness, unusual bruising, or yellowing of your skin or eyes. This reaction may occur several weeks after you began using doxycycline. Call your doctor at once if you have: fever, chills, rapid breathing, headaches, rapid heart rate, skin lesion, low blood pressure; severe stomach pain, diarrhea that is watery or bloody; throat irritation, trouble swallowing; chest pain, irregular heart rhythm, feeling short of breath; little or no urination; low white blood cell counts--fever, chills, swollen glands, body aches, weakness, pale skin, easy bruising or bleeding; increased pressure inside the skull--severe headaches, ringing in your ears, dizziness, nausea, vision problems, pain behind your eyes; or signs of liver or pancreas problems--loss of appetite, upper stomach pain (that may spread to your back), tiredness, nausea or vomiting, fast heart rate, dark urine, jaundice (yellowing of the skin or eyes). Common side effects may include: headache, sinus infection, pain in the nose and throat; reversible discoloration of the surface of adult teeth; flu-like symptoms; high blood pressure; nausea, vomiting, upset stomach, loss of appetite; stomach pain or bloating; change in certain blood tests; diarrhea; skin rash or itching; darkened skin color; or vaginal itching or discharge. This is not a complete list of side effects and others may occur. Call your doctor for medical advice about side effects. You may report side effects to FDA at 1-476-HUY-6390. What other drugs will affect doxycycline? Sometimes it is not safe to use certain medicines at the same time. Some drugs can affect your blood levels of other drugs you use, which may increase side effects or make the medicines less effective. Other drugs may affect doxycycline, including prescription and lfep-qxr-blxufxj medicines, vitamins, and herbal products. Tell your doctor about all other medicines you use. Where can I get more information? Your doctor or pharmacist can provide more information about doxycycline. Remember, keep this and all other medicines out of the reach of children, never share your medicines with others, and use this medication only for the indication prescribed. Every effort has been made to ensure that the information provided by [employer]. ('[employer]') is accurate, up-to-date, and complete, but no guarantee is made to that effect. Drug information contained herein may be time sensitive. [employer] information has been compiled for use by healthcare practitioners and consumers in the [place] and therefore [employer] does not warrant that uses outside of the [place] are appropriate, unless specifically indicated otherwise. [employer]'s drug information does not endorse drugs, diagnose patients or recommend therapy. [employer] drug information is an informational resource designed to assist licensed healthcare practitioners in caring for their patients and/or to serve consumers viewing this service as a supplement to, and not a substitute for, the expertise, skill, knowledge and judgment of healthcare practitioners. The absence of a warning for a given drug or drug combination in no way should be construed to indicate that the drug or drug combination is safe, effective or appropriate for any given patient. [employer] does not assume any responsibility for any aspect of healthcare administered with the aid of information [employer] provides. The information contained herein is not intended to cover all possible uses, directions, precautions, warnings, drug interactions, allergic reactions, or adverse effects. If you have questions about the drugs you are taking, check with your doctor, nurse or pharmacist. Copyright 7525-0856 [employer]. Version: 25.03. Revision Date: 10/09/2024. prednisone (PRED yuliana Davis What is the most important information I should know about prednisone? You should not use prednisone if you have a fungal infection anywhere in your body. You should not stop using prednisone suddenly. Follow your doctor's instructions about tapering your dose. What is prednisone? Prednisone is a steroid that reduces inflammation in the body, and also suppresses your immune system. Prednisone is used to treat many different conditions such as hormonal disorders, skin diseases, arthritis, lupus, psoriasis, allergic conditions, ulcerative colitis, Crohn's disease, eye diseases, lung diseases, asthma, tuberculosis, blood cell disorders, kidney disorders, leukemia, lymphoma, multiple sclerosis, organ transplant rejection, swelling from a brain tumor or injury. Prednisone may also be used for purposes not listed in this medication guide. What should I discuss with my healthcare provider before taking prednisone? You should not use prednisone if you are allergic to it, or if you have a fungal infection anywhere in your body. Steroid medication can weaken your immune system, making it easier for you to get an infection or worsening an infection you already have. Tell your doctor about any illness or infection you've had within the past several weeks. Tell your doctor if you have ever had: heart problems, high blood pressure, or a heart attack; glaucoma or cataracts; herpes infection of the eyes; past or present tuberculosis; a parasite infection that causes diarrhea (such as threadworms); any illness that causes diarrhea; underactive thyroid; diabetes; a stomach ulcer, diverticulitis; a colostomy or ileostomy; osteoporosis or low bone mineral density (steroid medication can increase your risk of bone loss); low levels of calcium or potassium in your blood; cirrhosis or other liver disease; mental illness or psychosis; or a muscle disorder such as myasthenia gravis. Long-term use of steroids may lead to bone loss (osteoporosis), especially if you smoke or drink alcohol, if you do not exercise, or if you do not get enough vitamin D or calcium in your diet. It is not known whether this medicine will harm an unborn baby. Tell your doctor if you are or plan to become . You should not breastfeed while using prednisone. How should I take prednisone? Follow all directions on your prescription label and read all medication guides or instruction sheets. Your doctor may occasionally change your dose. Use the medicine exactly as directed. Prednisone is taken daily or every other day, depending on the condition being treated. You may need to take the medicine at a certain time of day. Follow your doctor's instructions about when and how often to take this medicine. Take with food if prednisone upsets your stomach. Measure liquid medicine carefully. Use the dosing syringe provided, or use a medicine dose-measuring device (not a kitchen spoon). Swallow the delayed-release tablet whole and do not crush, chew, or break it. Prednisone can weaken (suppress) your immune system, and you may get an infection more easily. Call your doctor if you have signs of infection (fever, weakness, cold or flu symptoms, skin sores, diarrhea, frequent or recurring illness). If you have major surgery or a severe injury or infection, your prednisone dose needs may change. Make sure any doctor caring for you knows you are using this medicine. If you use this medicine long-term, you may need medical tests and vision exams. In case of emergency, wear or carry medical identification to let others know you use a steroid. You should not stop using prednisone suddenly. Follow your doctor's instructions about tapering your dose. Store at room temperature away from moisture, heat, and light. What happens if I miss a dose? Take the medicine as soon as you can, but skip the missed dose if it is almost time for your next dose. Do not take two doses at one time. What happens if I overdose? Seek emergency medical attention or call the Poison Help line at . High doses or long-term use of prednisone can lead to thinning skin, easy bruising, changes in body fat (especially in your face, neck, back, and waist), increased acne or facial hair, menstrual problems, impotence, or loss of interest in sex. What should I avoid while taking prednisone? Do not receive a 'live' vaccine while using prednisone. The vaccine may not work as well and may not fully protect you from disease. Live vaccines include measles, mumps, rubella (MMR), polio, rotavirus, typhoid, yellow fever, varicella (chickenpox), zoster (shingles), and nasal flu (influenza) vaccine. Avoid being near people who are sick or have infections. Call your doctor for preventive treatment if you are exposed to chickenpox or measles. These conditions can be serious or even fatal in people who are using steroid medicine. Avoid drinking alcohol. What are the possible side effects of prednisone? Get emergency medical help if you have signs of an allergic reaction: hives; difficult breathing; swelling of your face, lips, tongue, or throat. Call your doctor at once if you have: muscle pain or weakness; blurred vision, tunnel vision, eye pain, or seeing halos around lights; severe depression, changes in personality, unusual thoughts or behavior; bloody or tarry stools, coughing up blood or vomit that looks like coffee grounds; swelling, rapid weight gain, feeling short of breath; irregular heartbeats; severe headache, pounding in your neck or ears; decreased adrenal gland hormones--muscle weakness, tiredness, diarrhea, nausea, menstrual changes, skin discoloration, craving salty foods, and feeling light-headed; or low potassium level--leg cramps, constipation, irregular heartbeats, fluttering in your chest, increased thirst or urination, numbness or tingling, muscle weakness or limp feeling. Prednisone can affect growth in children. Tell your doctor if your child is not growing at a normal rate while using this medicine. Common side effects may include: weight gain (especially in your face or your upper back and torso); increased appetite; mood changes, trouble sleeping; changes in your menstrual periods; problems with memory or thought; muscle or joint pain; weakness; headache, dizziness, spinning sensation; nausea, bloating, loss of appetite; slow wound healing; or acne, increased sweating, thinning skin, bruising, pinpoint spots under your skin. This is not a complete list of side effects and others may occur. Call your doctor for medical advice about side effects. You may report side effects to FDA at 8-982-PJS-4088. What other drugs will affect prednisone? Sometimes it is not safe to use certain medications at the same time. Some drugs can affect your blood levels of other drugs you take, which may increase side effects or make the medications less effective. Tell your doctor about all your current medicines. Many drugs can affect prednisone, especially: bupropion; cyclosporine; digoxin; ketoconazole; an antibiotic; control pills or hormone replacement therapy; a diuretic or 'water pill'; insulin or oral diabetes medicine; a blood thinner--warfarin, Coumadin, Jantoven; or NSAIDs (nonsteroidal anti-inflammatory drugs)--aspirin, ibuprofen (Advil, Motrin), naproxen (Aleve), celecoxib, diclofenac, indomethacin, meloxicam, and others. This list is not complete and many other drugs may affect prednisone. This includes prescription and mcny-xqq-zahxhfn medicines, vitamins, and herbal products. Not all possible drug interactions are listed here. Where can I get more information? Your pharmacist can provide more information about prednisone. Remember, keep this and all other medicines out of the reach of children, never share your medicines with others, and use this medication only for the indication prescribed. Every effort has been made to ensure that the information provided by [employer]. ('[employer]') is accurate, up-to-date, and complete, but no guarantee is made to that effect. Drug information contained herein may be time sensitive. [employer] information has been compiled for use by healthcare practitioners and consumers in the [place] and therefore [employer] does not warrant that uses outside of the [place] are appropriate, unless specifically indicated otherwise. [employer]'s drug information does not endorse drugs, diagnose patients or recommend therapy. [employer] drug information is an informational resource designed to assist licensed healthcare practitioners in caring for their patients and/or to serve consumers viewing this service as a supplement to, and not a substitute for, the expertise, skill, knowledge and judgment of healthcare practitioners. The absence of a warning for a given drug or drug combination in no way should be construed to indicate that the drug or drug combination is safe, effective or appropriate for any given patient. [employer] does not assume any responsibility for any aspect of healthcare administered with the aid of information [employer] provides. The information contained herein is not intended to cover all possible uses, directions, precautions, warnings, drug interactions, allergic reactions, or adverse effects. If you have questions about the drugs you are taking, check with your doctor, nurse or pharmacist. Copyright 6869-7086 [employer]. Version: 10.. Revision Date: 09/21/2018. Education Materials Pneumonia (Adult) Pneumonia is an infection deep within the lungs. It is in the small air sacs (alveoli). Pneumonia may be caused by a virus or bacteria. Pneumonia caused by bacteria is usually treated with an antibiotic. Severe cases may need to be treated in the hospital. Milder cases can be treated at home. Symptoms usually start to get better during the first 2 days of treatment. Home care Follow these guidelines when caring for yourself at home: Rest at home for the first 2 to 3 days, or until you feel stronger. Don t let yourself get overly tired when you go back to your activities. Stay away from cigarette smoke yours or other people s. You may use acetaminophen or ibuprofen to control fever or pain, unless another medicine was prescribed. If you have chronic liver or kidney disease, talk with your healthcare provider before using these medicines. Also talk with your provider if you ve had a stomach ulcer or gastrointestinal bleeding. Don t give aspirin to anyone younger than 18 years of age who is ill with a fever. It may cause severe liver damage. Your appetite may be poor, so a light diet is fine. Drink 6 to 8 glasses of fluids every day to make sure you are getting enough fluids. Beverages can include water, sport drinks, sodas without caffeine, juices, tea, or soup. Fluids will help loosen secretions in the lung. This will make it easier for you to cough up the phlegm (sputum). If you also have heart or kidney disease, check with your healthcare provider before you drink extra fluids. Take antibiotic medicine prescribed until it is all gone, even if you are feeling better after a few days. Follow-up care Follow up with your healthcare provider in the next 2 to 3 days, or as advised. This is to be sure the medicine is helping you get better. If you are 65 or older, you should get a pneumococcal vaccine and a yearly flu (influenza) shot. You should also get these vaccines if you have chronic lung disease like asthma, emphysema, or COPD. Recently, a second type of pneumonia vaccine has become available for everyone over 65 years old. This is in addition to the previous vaccine. Ask your provider about this. When to seek medical advice Call your healthcare provider right away if any of these occur: You don t get better within the first 48 hours of treatment Shortness of breath gets worse Rapid breathing (more than 25 breaths per minute) Coughing up blood Chest pain gets worse with breathing Fever of 100.4 F (38 C) or higher that doesn t get better with fever medicine Weakness, dizziness, or fainting that gets worse Thirst or dry mouth that gets worse Sinus pain, headache, or a stiff neck Chest pain not caused by coughing [id number] [employer]. [address] [place] [address] 26466. All rights reserved. This information is not intended as a substitute for professional medical care. Always follow your healthcare professional's instructions. Additional Information VACCINATE! IT SAVES LIVES! Members of the community who have not yet received the COVID-19 vaccine and would like to receive it can visit one of [facility] vaccine clinics. There are many vaccine clinic locations within the [facility]. For locations and available times, please visit [email or web address] [email or web address] It is important to note that some COVID mobile vaccine clinics are held outdoors and may be canceled in rainy or stormy conditions. To learn more about pediatric vaccinations (ages 5-11), we invite you to visit the [facility] webpage. https://www.[employer].org/p ages/4982-Tntod-Bjlccezhwzc-Freq stzqhf-Llsqx-Qhcguzivt.html To learn more about the COVID-19 vaccine, we invite you to visit the CDC website for a list of frequently asked questions. https://www.cdc.gov/coronavirus/ 2019-ncov/vaccines/faq.html [facility] Patient Portal Access Instructions: Stay connected with your healthcare team and access your personal medical information anytime with the [facility] Patient Portal. If you would like a full copy of your medical records please contact the [facility] Medical Records Department Tuesday through Tuesday between 8a.m. and 4:30p.m. Please follow the directions below to access the portal: 1.Access the email account you provided upon registration to the [facility].2.Look for an invitation email from [facility].3.Open the email and access the invitation link: Accept Invitation to [facility].Fill in the required mccoy to create your account. Sign into www.[employer] with your username and password that you created in the above steps to stay up to date. You can then view a summary of results, a summary of your visits, and the ability to download your summaries to your computer or send the information securely to a physician. Remember that your healthcare information is confidential, so carefully consider who you will allow to register on the [facility] Patient Portal for access to your information. You can also access the [facility] Patient Portal on the [employer]. Simply click on Health Records under Health Data and then click on the [employer] logo. HOW TO SAFELY DISPOSE OF PRESCRIPTION MEDICATIONS Please use one of the following methods to safely dispose of your unused medications. 1.Use a drug disposal kit: the drug disposal pouch allows you to safely discard your old and unused drugs. Ask your nurse to give you one when you are discharged.2.Visit a local take-back location: Many local pharmacies and police departments have programs that collect old and unwanted prescription drugs. Call your local pharmacy or go to http://[employer].[place]/6L1Py3s to find one close to you.3.Make use of household items: Use cat litter or old coffee grounds to dispose medications if other options are not available. Mix your drugs with these household products, seal them in an airtight container and throw it into the garbage. Call [facility]: [phone] to be sure your drugs can be disposed of in this way. Some medicines may require a different approach.4.Never flush your medications down the toilet. IF YOU HAVE BEEN PRESCRIBED AN OPIOIDS FOR PAIN If you have been prescribed an opioid (such as hydrocodone, oxycodone or morphine), it is critical to understand the possible side effects and risks of opioid pain medications. Even when taken as directed, opioids can have several side effects including: Tolerance, meaning you might need to take more of a medication for the same pain relief. Nausea, vomiting and/or constipation. Sleepiness, dizziness, dry mouth, confusion, depression or itching. Physical dependence, meaning you have withdrawal symptoms when a medication is stopped ? this can develop within a few days. KNOW YOUR RESPONSIBILITIES It is important to know exactly how much and how often to take the opioid pain medications you are prescribed. Never take opioids in higher amounts or more often than prescribed. Do not combine opioids with alcohol or other drugs that cause drowsiness, such as benzodiazepines, also known as benzos, including diazepam and alprazolam, muscle relaxants or sleep aids. Never sell or share prescription opioids. This is illegal. Store opioids in a secure place and out of reach of others (including children, family, friends and visitors). The last page(s) of this document has been signed and retained as a CHART COPY Signatures Patient Education Materials Pneumonia (Adult) Medication Leaflets albuterol inhalation, doxycycline (oral/injection), prednisone My discharge plan and instructions have been reviewed and explained to me and I,LAURA, HECTOR Van understand my current condition and have read and understand these discharge instructions. I have received a written copy of the plan/instructions. If I have questions, I am aware that I should contact my doctor. 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 Heart size and mediastinal contours are within normal limits for age and projection. No acute skeletal abnormality. IMPRESSION: No acute cardiopulmonary process. Interpreted by: Jaron Serrato MD Preliminary Report By: Jaron Serrato MD Electronically signed By Jaron Serrato MD Dictated Date: 01/31/2025 8:21:30 AM Prelim Date: 01/31/2025 8:21:49 AM Sign Date: 01/31/2025 8:21:49 AM [facility]ing [facility] Exam Date Time Procedure Performing Provider Status 01/31/25 8:02 AM EKG [ED A[facility]] - CV DAPHNEY DUQUE DO; Auth (Verified) ECG Final Report Sinus rhythm Atrial premature complex Minimal ST depression, anterolateral leads Compared to ECG at 01/16/2025 10:31:10 BORDERLINE ECG Electronic Signature: DAPHNEY DUQUE DO 01/31/2025 08:06:53 [facility]07-25-2025 Discharge summary Date of Service 01/18/2025 Discharge Diagnosis 1. Bilateral pulmonary embolism 2. Mild cardiomegaly noted on imaging, echo normal 3. Shortness of breath secondary to #1 4. Generalized anxiety 5. Status post left ankle hardware removal January 04, 2025 Hospital Course Patient is 64-year-old female with previous trimalleolar fracture of the left ankle, surgical removal of hardware on January 04, 2025. Surgery without any complications and she has been with ambulation as tolerated with the boot on. She endorses some worsening pain, swelling of the left lower extremity since removal of hardware. Earlier this day she woke up with some right-sided pleuritic chest pain, shortness of breath and subsequently presented to the emergency department. Initial blood work without significant derangements, hemoglobin and hematocrit stable, no leukocytosis and no electrolyte a bnormalities. proBNP, troponins x 3 and EKG were without evidence of any heart strain. She did havea CTA of chest that showed bilateral pulmonary emboli. Initiated on heparin by weight therapy, transfer to [facility] for further management. Patient completed ultrasound studies, positive for right peroneal DVT. Echocardiogram and cardiac eval with no evidence of heart strain. Patient hasremained hemodynamically stable. She is gotten pain control with oral Williamson that she takes at home at baseline. She has otherwise not had any acute complications during her hospital stay. Medically optimized today for discharge today Allergies Contrast dye Hives Procedures Serial CBC, BMP Echocardiogram Bilateral lower extremity DVT studies Consults No qualifying data available. Imaging Results and Diagnostics ORIGINAL EXAMINATION: CTA OF THE CHEST 01/16/2025 6:53 am TECHNIQUE: CTA of the chest was performed after the administration of intravenous contrast. Multiplanar reformatted images are provided for review. MIP images are provided for review. Automated exposure control, iterative reconstruction, and/or weight based adjustment of the mA/kV was utilized to reduce the radiation dose to as low as reasonably achievable. COMPARISON: None. HISTORY: ORDERING SYSTEM PROVIDED HISTORY: Reason for Exam: Pulmonary embolism (PE) suspected, high prob FINDINGS: Pulmonary Arteries: The pulmonary arteries are adequately opacified for evaluation. There are multiple small filling defects in segmental branches of pulmonary arteries in the lower lobes bilaterally consistent with pulmonary emboli. Main pulmonary artery is normal in diameter. There is no evidence of right ventricular strain. Mediastinum: There is no mediastinal mass or lymph node enlargement. The heart is mildly enlarged. There is no pericardial fluid. Thoracic aorta is nonaneurysmal. Lungs/pleura: There is no acute lung infiltrate or edema. No pleural fluid or pneumothorax is present. Upper Abdomen: Limited images of the upper abdomen are unremarkable. Soft Tissues/Bones: No acute bone or soft tissue abnormality. IMPRESSION: 1. Bilateral lower lobe pulmonary emboli. 2. Mild cardiomegaly. Bilateral Lower extremity venous Doppler report [place] physician: MARIELA GOMEZ MD Inspector Multifocal Lens: PABLO THORPE RVT, [facility] Ordering physician: DYANA DEVINE APRN-ACQUISITION COST ESTIMATOR Indications: Pulmonary embolism (I26.99). History: Short of breath. PMH: Pulmonary embolus. CRITICAL FINDINGS Technical findings were reported to Amor, a nurse responsible for the patient, by cardiovascular technologist, on 01/17/2025, at 01:07 PM. Correct read-back was verified. CONCLUSION Summary: 1. Positive for acute deep vein thrombosis involving the right lower extremity in the veins noted below. 2. Negative for superficial vein thrombosis involving the right lower extremity. 3. Negative for deep vein thrombosis involving the left lower extremity. 4. Negative for superficial vein thrombosis involving the left lower extremity. Echo 01/17/2025 [place] physician: KIRSTEN ALVARADO MD Secondary Inspector Multifocal Lens: Louisa Richard RDCS Reporting fellow: HAMILTON MONTENEGRO MD Inspector Multifocal Lens: Anna Alejandre Ordering physician: DYANA DEVINE APRN-ACQUISITION COST ESTIMATOR Fellow 1: VANESA MCDANIELS MD History: Billing diagnosis codes: Chest pain, unspecified (R07.9), known, pre-procedure. Summary: 1. Left ventricle: The cavity size is normal. Wall thickness is normal. Strain Pattern is Normal GEGLS is -18.6 % Systolic function is normal. The estimated ejection fraction is 55-60%. Wall motion is normal; there are no regional wall motion abnormalities. Normal diastolic function. 2. Mitral valve: The annulus is mildly calcified. The leaflets are mildly thickened. 3. Right ventricle: Systolic function is normal. FWS -23.5%. TAPSE 2.0 cm. The RV systolic pressureby Doppler is 10 mm Hg. 4. Right atrium: The estimated right atrial pressure is 3 mm Hg. Physical Exam Vitals and Measurements T: 37.5 C (Oral) TMIN: 36.4 C (Oral) TMAX: 37.5 C (Oral) HR: 84 (Monitored) RR: 18 BP: 153/90 SpO2:97% WT: 100.4 kg Weight Current Weight Dosing Weight: 97.9 kg (01/16/25) Current Weight: 100.4 kg (01/18/25) Dosing Weight: 97.9 kg (01/16/25) Current Weight: 76 kg (01/17/25) General: Appears comfortable, in no acute distress HEENT: Mucous membranes moist, no nasal drainage Respiratory: Lungs clear, no rales, no rhonchi, no wheezes. Normal respiratory effort. Cardiovascular: Regular rate and regular rhythm Edema/varicosities of extremities: Left lower extremity edema Gastrointestinal: Abdomen soft, NT, ND, without masses. Bowel sounds active x4 Musculoskeletal: No pinpoint tenderness or effusions. Neurological: No tremor or focal weakness Psychiatric: Mood and behavior normal Code Status Code Status - Ordered -- 01/16/25 14:44:00 EDT, Full Code, Constant Order Admission Date January 16, 2025 Discharge Date January 18, 2025 Patient Instructions Follow-up outpatient with PCP, orthopedic surgery Medications New Prescription apixaban (Eliquis Starter Pack for Treatment of DVT and PE 5 mg oral tablet)[10mg BID x 7days-then 5mg BID] by mouth two (2) times a day for 30 Days. Refills: 0. pantoprazole (Protonix 40 mg oral enteric coated tablet)1 tab(s) by mouth once a day before a meal for 30 Days. Refills: 0. Changed acetaminophen-hydrocodone (acetaminophen-hydrocodone 300 mg-5 mg oral tablet)1 tab(s) by mouth three (3) times a day as needed for chest pain for 4 Days. Refills: 0. acetaminophen-hydrocodone (Williamson 325- 5 mg oral tablet)2 tab(s) by mouth every 4 hours as needed Pain, scale 7-10. ibuprofen (ibuprofen 400 mg oral tablet)1 tab(s) by mouth two (2) times a day as needed mild to moderate pain for 4 Days. Refills: 0. Unchanged acetaminophen (Tylenol)1,000 Milligram by mouth every 8 hours as needed as needed for pain. [id number] Milligram by mouth daily at bedtime. Discontinued [id number] Milligram by mouth two (2) times a day. naproxen (Aleve 220 mg oral tablet)2 tab(s) by mouth two (2) times a day as needed as needed for pain. ondansetron (Zofran 4 mg oral tablet)1 tab(s) by mouth every 6 hours as needed Nausea/Vomiting. Follow Up Follow Up with LUIS ALFREDO BAKER MD When:Within 5 to 7 days, only if needed Where:[address] [address] [place] [address]- [phone] Additional Information: Call for pulmonology follow-up as needed Follow Up with ARUNA BAR MD When:Within 1-2 days Where:[address] [place] [phone]- Additional Information: Please call the office to schedule a hospital follow up appointment. Discharge Diet Discharge Diet - Ordered -- No changes were made to your diet during your hospital stay. Please resume your pre hospitalization diet on discharge., 01/18/25 10:21:00 EDT Discharge Activity Discharge Activity - Ordered -- Resume your pre-hospitalization activity, 01/18/25 10:21:00 EDT Condition on Discharge Stable Discharge Disposition Home Information Provided To Patient Time Spent 45 minutes Digitally Signed by DYANA DEVINE on 01/18/2025 12:55 PM [id number] Discharge instructions Patient Education 01/18/2025 12:18:33 Pulmonary Embolism Pulmonary Embolism A pulmonary embolism (PE) is a sudden blockage or decrease of blood flow in one or both lungs. Mostblockages come from a blood clot that forms in the vein of a lower leg, thigh, or arm (deep vein thrombosis, DVT) and travels to the lungs. A clot is blood that has thickened into a gel or solid. PE is a dangerous and life-threatening condition that needs to be treated right away. What are the causes? This condition is usually caused by a blood clot that forms in a vein and moves to the lungs. In rare cases, it may be caused by air, fat, part of a tumor, or other tissue that moves through the veins and into the lungs. What increases the risk? The following factors may make you more likely to develop this condition: Experiencing a traumatic injury, such as breaking a hip or leg. Having: ?A spinal cord injury. ?Orthopedic surgery, especially hip or knee replacement. ?Any major surgery. ?A stroke. ?DVT. ?Blood clots or blood clotting disease. ?Long-term (chronic) lung or heart disease. ?Cancer treated with chemotherapy. ?A central venous catheter. Taking medicines that contain estrogen. These include control pills and hormone replacement therapy. Being: ?. ?In the period of time after your baby is delivered (). ?Older than age 60. ?Overweight. ?A smoker, especially if you have other risks. What are the signs or symptoms? Symptoms of this condition usually start suddenly and include: Shortness of breath during activity or at rest. Coughing, coughing up blood, or coughing up blood-tinged mucus. Chest pain that is often worse with deep breaths. Rapid or irregular heartbeat. Feeling light-headed or dizzy. Fainting. Feeling anxious. Fever. Sweating. Pain and swelling in a leg. This is a symptom of DVT, which can lead to PE. How is this diagnosed? This condition may be diagnosed based on: Your medical history. A physical exam. Blood tests. CT pulmonary angiogram. This test checks blood flow in and around your lungs. Ventilation-perfusion scan, also called a lung VQ scan. This test measures air flow and blood flow to the lungs. An ultrasound of the legs. How is this treated? Treatment for this condition depends on many factors, such as the cause of your PE, your risk for bleeding or developing more clots, and other medical conditions you have. Treatment aims to remove, dissolve, or stop blood clots from forming or growing larger. Treatment may include: Medicines, such as: ?Blood thinning medicines (anticoagulants) to stop clots from forming. ?Medicines that dissolve clots (thrombolytics). Procedures, such as: ?Using a flexible tube to remove a blood clot (embolectomy) or to deliver medicine to destroy it (catheter-directed thrombolysis). ?Inserting a filter into a large vein that carries blood to the heart (inferior vena cava). This filter (vena cava filter) catches blood clots before they reach the lungs. ?Surgery to remove the clot (surgical embolectomy). This is rare. You may need a combination of immediate, long-term (up to 3 months after diagnosis), and extended (more than 3 months after diagnosis) treatments. Your treatment may continue for several months (maintenance therapy). You and your health care provider will work together to choose the treatment program that is best for you. Follow these instructions at home: Medicines Take tcht-[id number] and prescription medicines only as told by your health care provider. If you are taking an anticoagulant medicine: ?Take the medicine every day at the same time each day. ?Understand what foods and drugs interact with your medicine. ?Understand the side effects of this medicine, including excessive bruising or bleeding. Ask your health care provider or pharmacist about other side effects. General instructions Wear a medical alert bracelet or carry a medical alert card that says you have had a PE and lists what medicines you take. Ask your health care provider when you may return to your normal activities. Avoid sitting or lyingfor a long time without moving. Maintain a healthy weight. Ask your health care provider what weight is healthy for you. Do not use any products that contain nicotine or tobacco, such as cigarettes, e- cigarettes, and chewing tobacco. If you need help quitting, ask your health care provider. Talk with your health care provider about any travel plans. It is important to make sure that you are still able to take your medicine while on trips. Keep all follow-up visits as told by your health care provider. This is important. Contact a health care provider if: You missed a dose of your blood thinner medicine. Get help right away if: You have: ?New or increased pain, swelling, warmth, or redness in an arm or leg. ?Numbness or tingling in an arm or leg. ?Shortness of breath during activity or at rest. ?A fever. ?Chest pain. ?A rapid or irregular heartbeat. ?A severe headache. ?Vision changes. ?A serious fall or accident, or you hit your head. ?Stomach (abdominal) pain. ?Blood in your vomit, stool, or urine. ?A cut that will not stop bleeding. You cough up blood. You feel light-headed or dizzy. You cannot move your arms or legs. You are confused or have memory loss. These symptoms may represent a serious problem that is an emergency. Do not wait to see if the symptoms will go away. Get medical help right away. Call your local emergency services (911 in the [place] Do not drive yourself to the hospital. Summary A pulmonary embolism (PE) is a sudden blockage or decrease of blood flow in one or both lungs. PE is a dangerous and life-threatening condition that needs to be treated right away. Treatments for this condition usually include medicines to thin your blood (anticoagulants) or medicines to break apart blood clots (thrombolytics). If you are given blood thinners, it is important to take the medicine every day at the same time each day. Understand what foods and drugs interact with any medicines that you are taking. If you have signs of PE or DVT, call your local emergency services (911 in the [place] This information is not intended to replace advice given to you by your health care provider. Make sure you discuss any questions you have with your health care provider. Document Released: 06/10/2001 Document Revised: 03/21/2019 Document Reviewed: 03/21/2019 [employer] Patient Education 2020 [place]. Follow Up Care 01/16/2025 08:23:30 With:LUIS ALFREDO BAKER MD Address: [address] [place] [address] [place] [address]- [phone] When:5 to 7 days only if needed Comments:Call for pulmonology follow-up as needed With:ARUNA BAR MD Address: [address] [place] [phone]- When:1-2 days Comments:Please call the office to schedule a hospital follow up appointment. [facility] 07-25-2025 Note Discharge Instructions Thank you for allowing [facility] to assist you with your healthcare needs. The following is importantdischarge information regarding your hospital visit. Your Care Team ARUNA BAR MD Your Diagnosis Acute pulmonary embolism What to do next Follow Up Appointments Follow Up with LUIS ALFREDO BAKER MD When:Within 5 to 7 days, only if needed Where:[address] [facility] [address] [place] [address]- [phone] Additional Information: Call for pulmonology follow-up as needed Follow Up with ARUNA BAR MD When:Within 1-2 days Where:[address] [place] [phone]- Additional Information: Please call the office to schedule a hospital follow up appointment. The Following Activity and Diet Have Been Ordered for You Discharge Activity - Ordered -- Resume your pre-hospitalization activity, 01/18/25 10:21:00 EDT Discharge Diet - Ordered -- No changes were made to your diet during your hospital stay. Please resume your pre hospitalization diet on discharge., 01/18/25 10:21:00 EDT The Following Equipment Has Been Ordered for You No qualifying data available. The Following Treatments Have Been Ordered for You Discharge Labs No qualifying data available. Discharge Radiology No qualifying data available. Other Therapies No qualifying data available. Post Acute Orders No qualifying data available. Someone Will Contact You Regarding These Home Health Referrals No home referrals have been ordered for you. No one will call you. Allergies Contrast dye Hives Medications Please ask your primary doctor or pharmacist before taking any other medication not listed, including over the counter drugs, herbal medications, vitamins and or supplements as they may interact withyour home medications. What How Much When Why Instructions Last Dose New apixaban (Eliquis Starter Pack for Treatment of DVT and PE 5 mg oral tablet) [10mg BID x 7days-then 5mg BID] by mouth Two (2) times a day Duration: 30 Days Pickup at [facility] New pantoprazole (Protonix 40 mg oral enteric coated tablet) 1 tab(s) by mouth Once a day before a meal Duration: 30 Days Pickup at [facility] Changed acetaminophen-hydrocodone (acetaminophen-hydrocodone 300 mg-5 mg oral tablet) 1 tab(s) by mouth Three (3) times a day as needed for for chest pain Acute pulmonary embolism Duration: 4 Days Pickup at [facility] Changed acetaminophen-hydrocodone (Williamson 325- 5 mg oral tablet) 2 tab(s) by mouth Every 4 hours as needed for Pain, scale 7-10 Changed ibuprofen (ibuprofen 400 mg oral tablet) 1 tab(s) by mouth Two (2) times a day as needed for mild to moderate pain Duration: 4 Days Pickup at [facility] Unchanged acetaminophen (Tylenol) 1,000 Milligram by mouth Every 8 hours as needed for as needed for pain Unchanged gabapentin 300 Milligram by mouth Daily at bedtime Pharmacy Information [facility]: [address] [place] [address] [phone] What How Much When Comments Stop Taking aspirin 81 Milligram by mouth Two (2) times a day Stop Taking naproxen (Aleve 220 mg oral tablet) 2 tab(s) by mouth Two (2) times a day as needed for as needed for pain Stop Taking ondansetron (Zofran 4 mg oral tablet) 1 tab(s) by mouth Every 6 hours as needed for Nausea/Vomiting Please take this list to your next doctor s visit. Bring all medications you take, including over the counter medications, herbals and other supplements with you to your doctor s visit. Patients and families are reminded to discard old lists and to update any records with all medication providers or retail pharmacies. Education Materials Pulmonary Embolism A pulmonary embolism (PE) is a sudden blockage or decrease of blood flow in one or both lungs. Mostblockages come from a blood clot that forms in the vein of a lower leg, thigh, or arm (deep vein thrombosis, DVT) and travels to the lungs. A clot is blood that has thickened into a gel or solid. PE is a dangerous and life-threatening condition that needs to be treated right away. What are the causes? This condition is usually caused by a blood clot that forms in a vein and moves to the lungs. In rare cases, it may be caused by air, fat, part of a tumor, or other tissue that moves through the veins and into the lungs. What increases the risk? The following factors may make you more likely to develop this condition: Experiencing a traumatic injury, such as breaking a hip or leg. Having: ? A spinal cord injury. ? Orthopedic surgery, especially hip or knee replacement. ? Any major surgery. ? A stroke. ? DVT. ? Blood clots or blood clotting disease. ? Long-term (chronic) lung or heart disease. ? Cancer treated with chemotherapy. ? A central venous catheter. Taking medicines that contain estrogen. These include control pills and hormone replacement therapy. Being: ? . ? In the period of time after your baby is delivered (). ? Older than age 60. ? Overweight. ? A smoker, especially if you have other risks. What are the signs or symptoms? Symptoms of this condition usually start suddenly and include: Shortness of breath during activity or at rest. Coughing, coughing up blood, or coughing up blood-tinged mucus. Chest pain that is often worse with deep breaths. Rapid or irregular heartbeat. Feeling light-headed or dizzy. Fainting. Feeling anxious. Fever. Sweating. Pain and swelling in a leg. This is a symptom of DVT, which can lead to PE. How is this diagnosed? This condition may be diagnosed based on: Your medical history. A physical exam. Blood tests. CT pulmonary angiogram. This test checks blood flow in and around your lungs. Ventilation-perfusion scan, also called a lung VQ scan. This test measures air flow and blood flow to the lungs. An ultrasound of the legs. How is this treated? Treatment for this condition depends on many factors, such as the cause of your PE, your risk for bleeding or developing more clots, and other medical conditions you have. Treatment aims to remove, dissolve, or stop blood clots from forming or growing larger. Treatment may include: Medicines, such as: ? Blood thinning medicines (anticoagulants) to stop clots from forming. ? Medicines that dissolve clots (thrombolytics). Procedures, such as: ? Using a flexible tube to remove a blood clot (embolectomy) or to deliver medicine to destroy it (catheter-directed thrombolysis). ? Inserting a filter into a large vein that carries blood to the heart (inferior vena cava). This filter (vena cava filter) catches blood clots before they reach the lungs. ? Surgery to remove the clot (surgical embolectomy). This is rare. You may need a combination of immediate, long-term (up to 3 months after diagnosis), and extended (more than 3 months after diagnosis) treatments. Your treatment may continue for several months (maintenance therapy). You and your health care provider will work together to choose the treatment program that is best for you. Follow these instructions at home: Medicines Take uash-ujw-jmssnfu and prescription medicines only as told by your health care provider. If you are taking an anticoagulant medicine: ? Take the medicine every day at the same time each day. ? Understand what foods and drugs interact with your medicine. ? Understand the side effects of this medicine, including excessive bruising or bleeding. Ask your health care provider or pharmacist about other side effects. General instructions Wear a medical alert bracelet or carry a medical alert card that says you have had a PE and lists what medicines you take. Ask your health care provider when you may return to your normal activities. Avoid sitting or lyingfor a long time without moving. Maintain a healthy weight. Ask your health care provider what weight is healthy for you. Do not use any products that contain nicotine or tobacco, such as cigarettes, e- cigarettes, and chewing tobacco. If you need help quitting, ask your health care provider. Talk with your health care provider about any travel plans. It is important to make sure that you are still able to take your medicine while on trips. Keep all follow-up visits as told by your health care provider. This is important. Contact a health care provider if: You missed a dose of your blood thinner medicine. Get help right away if: You have: ? New or increased pain, swelling, warmth, or redness in an arm or leg. ? Numbness or tingling in an arm or leg. ? Shortness of breath during activity or at rest. ? A fever. ? Chest pain. ? A rapid or irregular heartbeat. ? A severe headache. ? Vision changes. ? A serious fall or accident, or you hit your head. ? Stomach (abdominal) pain. ? Blood in your vomit, stool, or urine. ? A cut that will not stop bleeding. You cough up blood. You feel light-headed or dizzy. You cannot move your arms or legs. You are confused or have memory loss. These symptoms may represent a serious problem that is an emergency. Do not wait to see if the symptoms will go away. Get medical help right away. Call your local emergency services (911 in the [place] Do not drive yourself to the hospital. Summary A pulmonary embolism (PE) is a sudden blockage or decrease of blood flow in one or both lungs. PE is a dangerous and life-threatening condition that needs to be treated right away. Treatments for this condition usually include medicines to thin your blood (anticoagulants) or medicines to break apart blood clots (thrombolytics). If you are given blood thinners, it is important to take the medicine every day at the same time each day. Understand what foods and drugs interact with any medicines that you are taking. If you have signs of PE or DVT, call your local emergency services (911 in the [place] This information is not intended to replace advice given to you by your health care provider. Make sure you discuss any questions you have with your health care provider. Document Released: 06/10/2001 Document Revised: 03/21/2019 Document Reviewed: 03/21/2019 [employer] Patient Education 2020 [employer] Additional Information VACCINATE! IT SAVES LIVES! Members of the community who have not yet received the COVID-19 vaccine and would like to receive it can visit one of [facility] vaccine clinics. There are many vaccine clinic locations within the [facility]. For locations and available times, please visit [email or web address] It is important to note that some COVID mobile vaccine clinics are held outdoors and may be canceled in rainy or stormy conditions. To learn more about pediatric vaccinations (ages 5-11), we invite you to visit the [facility] webpage. [email or web address] learn more about the COVID-19 vaccine, we invite you to visit the CDC website for a list of frequently asked questions.https://www.cdc.gov/coronavirus/2019-ncov/vaccines/faq.html [facility] Patient Portal Access Instructions: Stay connected with your healthcare team and access your personal medical information anytime with the [facility] Patient Portal. Please follow the directions below to create your [facility] account: 1.Access the email account you provided upon registration to the hospital/physician office.2.Look for an invitation email from [facility].3.Open the email and access the invitation link: AcceptInvitation to [facility].4.Fill in the required mccoy to create your account. To access your account, visit [email or web address]. Click the blue button labeled Access Patient Portal and then log in with the username and password that you created in the steps above. You will be able to view your test results, lab results, a summary of your visits, upcoming appointments and more. There is also a convenient messaging option where you can send secure messages to your p rovider. In addition, you will have the ability to download any documents or summaries to your computer and/or send the information securely to a physician. Remember that your healthcare information is confidential, so carefully consider who you will allowto register on the [facility] Patient Portal for access to your information. You can also access the [facility] Patient Portal on the [place] [facility] nestor. Simply click on Patient Portal and then log into your account. If you would like to receive a full copy of your medical records, please contact the [facility] Medical Records Department by calling [phone], Tuesday through Tuesday between 8 a.m. and 4:30 p.m. HOW TO SAFELY DISPOSE OF PRESCRIPTION MEDICATIONS Please use one of the following methods to safely dispose of your unused medications. 1.Use a drug disposal kit: the drug disposal pouch allows you to safely discard your old and unuseddrugs. Ask your nurse to give you one when you are discharged.2.Visit a local take-back location: Many local pharmacies and police departments have programs that collect old and unwanted prescriptiondrugs. Call your local pharmacy or go to http://[employer] [employer]/2N0Hx9y to find one close to you.3.Make use of household items: Use cat litter or old coffee grounds to dispose medications if other options arenot available. Mix your drugs with these household products, seal them in an airtight container andthrow it into the garbage. Call [facility]: [phone] to be sure your drugs can be disposed of in this way. Some medicines may require a different approach.4.Never flush your medications down the toilet. IF YOU HAVE BEEN PRESCRIBED AN OPIOID FOR PAIN If you have been prescribed an opioid (such as hydrocodone, oxycodone or morphine), it is critical to understand the possible side effects and risks of opioid pain medications. Even when taken as directed, opioids can have several side effects including: Tolerance, meaning you might need to take more of a medication for the same pain relief. Nausea, vomiting and/or constipation. Sleepiness, dizziness, dry mouth, confusion, depression or itching. Physical dependence, meaning you have withdrawal symptoms when a medication is stopped, can develop within a few days. KNOW YOUR RESPONSIBILITIES It is important to know exactly how much and how often to take the opioid pain medications you are prescribed. Never take opioids in higher amounts or more often than prescribed. Do not combine opioids with alcohol or other drugs that cause drowsiness, such as benzodiazepines, also known as benzos, including diazepam and alprazolam, muscle relaxants or sleep aids. Never sell or share prescription opioids. This is illegal. Store opioids in a secure place and out of reach of others (including children, family, friends and visitors). The last page of this document has been signed and retained as a CHART COPY. Signatures Patient Education Materials Pulmonary Embolism Medication Leaflets My discharge plan and instructions have been reviewed and explained to me and I,HECTOR SANCHEZ understand my current condition and have read and understand these discharge instructions. I have received a written copy of the plan/instructions. If I have questions, I am aware that I should contactmy doctor. 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 Bilateral pulmonary embolism 2. Mild cardiomegaly noted on imaging, echo normal 3. Shortness of breath secondary to #1 4. Generalized anxiety 5. Status post left ankle hardware removal January 04, 2025 Hospital Course Patient is 64-year-old female with previous trimalleolar fracture of the left ankle, surgical removal of hardware on January 04, 2025. Surgery without any complications and she has been with ambulation as tolerated with the boot on. She endorses some worsening pain, swelling of the left lower extremity since removal of hardware. Earlier this day she woke up with some right-sided pleuritic chest pain, shortness of breath and subsequently presented to the emergency department. Initial blood work without significant derangements, hemoglobin and hematocrit stable, no leukocytosis and no electrolyte a bnormalities. proBNP, troponins x 3 and EKG were without evidence of any heart strain. She did havea CTA of chest that showed bilateral pulmonary emboli. Initiated on heparin by weight therapy, transfer to [facility] for further management. Patient completed ultrasound studies, positive for right peroneal DVT. Echocardiogram and cardiac eval with no evidence of heart strain. Patient hasremained hemodynamically stable. She is gotten pain control with oral Williamson that she takes at home at baseline. She has otherwise not had any acute complications during her hospital stay. Medically optimized today for discharge today Allergies Contrast dye Hives Procedures Serial CBC, BMP Echocardiogram Bilateral lower extremity DVT studies Consults No qualifying data available. Imaging Results and Diagnostics ORIGINAL EXAMINATION: CTA OF THE CHEST 01/16/2025 6:53 am TECHNIQUE: CTA of the chest was performed after the administration of intravenous contrast. Multiplanar reformatted images are provided for review. MIP images are provided for review. Automated exposure control, iterative reconstruction, and/or weight based adjustment of the mA/kV was utilized to reduce the radiation dose to as low as reasonably achievable. COMPARISON: None. HISTORY: ORDERING SYSTEM PROVIDED HISTORY: Reason for Exam: Pulmonary embolism (PE) suspected, high prob FINDINGS: Pulmonary Arteries: The pulmonary arteries are adequately opacified for evaluation. There are multiple small filling defects in segmental branches of pulmonary arteries in the lower lobes bilaterally consistent with pulmonary emboli. Main pulmonary artery is normal in diameter. There is no evidence of right ventricular strain. Mediastinum: There is no mediastinal mass or lymph node enlargement. The heart is mildly enlarged. There is no pericardial fluid. Thoracic aorta is nonaneurysmal. Lungs/pleura: There is no acute lung infiltrate or edema. No pleural fluid or pneumothorax is present. Upper Abdomen: Limited images of the upper abdomen are unremarkable. Soft Tissues/Bones: No acute bone or soft tissue abnormality. IMPRESSION: 1. Bilateral lower lobe pulmonary emboli. 2. Mild cardiomegaly. Bilateral Lower extremity venous Doppler report [place] physician: MARIELA GOMEZ MD Inspector Multifocal Lens: PABLO THORPE RVT, [facility] Ordering physician: JACOBY VILLALOBOS Indications: Pulmonary embolism (I26.99). History: Short of breath. PMH: Pulmonary embolus. CRITICAL FINDINGS Technical findings were reported to Amor, a nurse responsible for the patient, by cardiovascular technologist, on 01/17/2025, at 01:07 PM. Correct read-back was verified. CONCLUSION Summary: 1. Positive for acute deep vein thrombosis involving the right lower extremity in the veins noted below. 2. Negative for superficial vein thrombosis involving the right lower extremity. 3. Negative for deep vein thrombosis involving the left lower extremity. 4. Negative for superficial vein thrombosis involving the left lower extremity. Echo 01/17/2025 [place] physician: KIRSTEN ALVARADO MD Secondary Inspector Multifocal Lens: Louisa Richard [facility] Reporting fellow: HAMILTON MONTENEGRO MD Inspector Multifocal Lens: Anna Alejandre Ordering physician: JACOBY VILLALOBOS Fellow 1: VANESA MCDANIELS MD History: Billing diagnosis codes: Chest pain, unspecified (R07.9), known, pre-procedure. Summary: 1. Left ventricle: The cavity size is normal. Wall thickness is normal. Strain Pattern is Normal GEGLS is -18.6 % Systolic function is normal. The estimated ejection fraction is 55-60%. Wall motion is normal; there are no regional wall motion abnormalities. Normal diastolic function. 2. Mitral valve: The annulus is mildly calcified. The leaflets are mildly thickened. 3. Right ventricle: Systolic function is normal. FWS -23.5%. TAPSE 2.0 cm. The RV systolic pressureby Doppler is 10 mm Hg. 4. Right atrium: The estimated right atrial pressure is 3 mm Hg. Physical Exam Vitals and Measurements T: 37.5 C (Oral) TMIN: 36.4 C (Oral) TMAX: 37.5 C (Oral) HR: 84 (Monitored) RR: 18 BP: 153/90 SpO2:97% WT: 100.4 kg Weight Current Weight Dosing Weight: 97.9 kg (01/16/25) Current Weight: 100.4 kg (01/18/25) Dosing Weight: 97.9 kg (01/16/25) Current Weight: 76 kg (01/17/25) General: Appears comfortable, in no acute distress HEENT: Mucous membranes moist, no nasal drainage Respiratory: Lungs clear, no rales, no rhonchi, no wheezes. Normal respiratory effort. Cardiovascular: Regular rate and regular rhythm Edema/varicosities of extremities: Left lower extremity edema Gastrointestinal: Abdomen soft, NT, ND, without masses. Bowel sounds active x4 Musculoskeletal: No pinpoint tenderness or effusions. Neurological: No tremor or focal weakness Psychiatric: Mood and behavior normal Code Status Code Status - Ordered -- 01/16/25 14:44:00 EDT, Full Code, Constant Order Admission Date January 16, 2025 Discharge Date January 18, 2025 Patient Instructions Follow-up outpatient with PCP, orthopedic surgery Medications New Prescription apixaban (Eliquis Starter Pack for Treatment of DVT and PE 5 mg oral tablet)[10mg BID x 7days-then 5mg BID] by mouth two (2) times a day for 30 Days. Refills: 0. pantoprazole (Protonix 40 mg oral enteric coated tablet)1 tab(s) by mouth once a day before a meal for 30 Days. Refills: 0. Changed acetaminophen-hydrocodone (acetaminophen-hydrocodone 300 mg-5 mg oral tablet)1 tab(s) by mouth three (3) times a day as needed for chest pain for 4 Days. Refills: 0. acetaminophen-hydrocodone (Williamson 325- 5 mg oral tablet)2 tab(s) by mouth every 4 hours as needed Pain, scale 7-10. ibuprofen (ibuprofen 400 mg oral tablet)1 tab(s) by mouth two (2) times a day as needed mild to moderate pain for 4 Days. Refills: 0. Unchanged acetaminophen (Tylenol)1,000 Milligram by mouth every 8 hours as needed as needed for pain. [id number] Milligram by mouth daily at bedtime. Discontinued Milligram by mouth two (2) times a day. naproxen (Aleve 220 mg oral tablet)2 tab(s) by mouth two (2) times a day as needed as needed for pain. ondansetron (Zofran 4 mg oral tablet)1 tab(s) by mouth every 6 hours as needed Nausea/Vomiting. Follow Up Follow Up with LUIS ALFREDO BAKER MD When:Within 5 to 7 days, only if needed Where:[address] [facility] [address] [place] [address]- [phone] Additional Information: Call for pulmonology follow-up as needed Follow Up with ARUNA BAR MD When:Within 1-2 days Where:[address] [place] [address]- Additional Information: Please call the office to schedule a hospital follow up appointment. Discharge Diet Discharge Diet - Ordered -- No changes were made to your diet during your hospital stay. Please resume your pre hospitalization diet on discharge., 01/18/25 10:21:00 EDT Discharge Activity Discharge Activity - Ordered -- Resume your pre-hospitalization activity, 01/18/25 10:21:00 EDT Condition on Discharge Stable Discharge Disposition Home Information Provided To Patient Time Spent 45 minutes Digitally Signed by DYANA DEVINE on 01/18/2025 12:55 PM [id number] Note Date of Service 01/17/2025 Chief Complaint Shortness of breath Subjective Patient is 64-year-old female with previous trimalleolar fracture of the left ankle, surgical removal of hardware on January 04, 2025. Surgery without any complications and she has been with ambulation as tolerated with the boot on. She endorses some worsening pain, swelling of the left lower extremity since removal of hardware. Earlier this day she woke up with some right-sided pleuritic chest pain, shortness of breath and subsequently presented to the emergency department. Initial blood work without significant derangements, hemoglobin and hematocrit stable, no leukocytosis and no electrolyte a bnormalities. proBNP, troponins x 3 and EKG were without evidence of any heart strain. She did havea CTA of chest that showed bilateral pulmonary emboli. Initiated on heparin by weight therapy, transfer to [facility] for further evaluation and management. Echocardiogram and lower extremity DVT studies pending. Patient does endorse today feeling somewhatimproved. She reports pain is better controlled with hydromorphone, lidocaine topical ineffective. Discussion with patient on downgrading to oral narcotic therapy she is agreeable to trial. She has a baseline of taking Williamson every 4-6 hours as needed at home for pain. Discussed and patient agrees with plan for 1-2 Williamson every 4 hours as needed based on pain rating and utilizing hydromorphone for breakthrough pain management. Otherwise patient has remained hemodynamically stable, 98% on room air, recommended weaning oxygen therapy off. She voiced understanding of this and is agreeable. She does endorse some lower extremity discomfort where she has Bon wrap on postoperatively. Swelling of left lower extremity similar to yesterday's appearance. Patient is denying any acute changes or concerns. Objective Vitals and Measurements T: 36.8 C (Oral) TMIN: 36.5 C (Oral) TMAX: 36.8 C (Oral) HR: 78 (Apical) RR: 16 BP: 136/70 SpO2: 95% HT: 167.6 cm WT: 76 kg BMI: 34.85 Intake and Output 7AM Yesterday to 7AM Today Intake and Output (Last 24 hours) Intake Oral Intake 370.00 Output Urinary Catheter Output: 150.00 Stool Count 0.00 Urine Count 1.00 Total Summary Total Intake 370.00 Total Output 150.00 Fluid Balance 220.00 Physical Exam General: Appears comfortable, in no acute distress HEENT: Mucous membranes moist, no nasal drainage Respiratory: Lungs clear, no rales, no rhonchi, no wheezes. Normal respiratory effort. Cardiovascular: Regular rate and regular rhythm Edema/varicosities of extremities: Left lower extremity edema Gastrointestinal: Abdomen soft, NT, ND, without masses. Bowel sounds active x4 Musculoskeletal: No pinpoint tenderness or effusions. Neurological: No tremor or focal weakness Psychiatric: Mood and behavior normal Weight Current Weight Dosing Weight: 97.9 kg (01/16/25) Current Weight: 76 kg (01/17/25) Dosing Weight: 97.9 kg (01/16/25) Medications Medications (12) Active Scheduled: (4) enoxaparin 100 mg/mL syringe 100 mg 1 mL, Subcutaneous, q12h gabapentin 300 mg Capsule 300 mg 1 cap(s), Oral, qHS lidocaine topical 4% patch 1 patch(es), Transdermal, q24h pantoprazole 40 mg EC tablet 40 mg 1 tab(s), Oral, qDayAC Continuous: (0) PRN: (8) acetaminophen-HYDROcodone 325-5 mg tablet 1 tab(s), Oral, q4h acetaminophen-HYDROcodone 325-5 mg tablet 2 tab(s), Oral, q4h albuterol - ipratropium 2.5 mg-0.5 mg/3 mL Inhal Yasmeen UD 3 mL, Inhalation, q4hRT dextrose 50% Solution Disp syringe 50 mL 25 gram(s) 50 mL, IV Push, AsDirected hydromorphone 1 mg/mL (1mL) INJ 1 mg 1 mL, IV Push, q4h ibuprofen 400 mg tablet 400 mg 1 tab(s), Oral, q8h ondansetron 2 mg/ 1 mL 2 mL INJ 4 mg 2 mL, IV Push, q4h promethazine 12.5 mg tablet 12.5 mg 1 tab(s), Oral, q6h Lab Results No 36 Hour Lab Data Imaging Results and Diagnostics ORIGINAL EXAMINATION: CTA OF THE CHEST 01/16/2025 6:53 am TECHNIQUE: CTA of the chest was performed after the administration of intravenous contrast. Multiplanar reformatted images are provided for review. MIP images are provided for review. Automated exposure control, iterative reconstruction, and/or weight based adjustment of the mA/kV was utilized to reduce the radiation dose to as low as reasonably achievable. COMPARISON: None. HISTORY: ORDERING SYSTEM PROVIDED HISTORY: Reason for Exam: Pulmonary embolism (PE) suspected, high prob FINDINGS: Pulmonary Arteries: The pulmonary arteries are adequately opacified for evaluation. There are multiple small filling defects in segmental branches of pulmonary arteries in the lower lobes bilaterally consistent with pulmonary emboli. Main pulmonary artery is normal in diameter. There is no evidence of right ventricular strain. Mediastinum: There is no mediastinal mass or lymph node enlargement. The heart is mildly enlarged. There is no pericardial fluid. Thoracic aorta is nonaneurysmal. Lungs/pleura: There is no acute lung infiltrate or edema. No pleural fluid or pneumothorax is present. Upper Abdomen: Limited images of the upper abdomen are unremarkable. Soft Tissues/Bones: No acute bone or soft tissue abnormality. IMPRESSION: 1. Bilateral lower lobe pulmonary emboli. 2. Mild cardiomegaly. EKG Electrocardiogram (EKG) - Ordered -- 01/16/25 16:49:00 EDT Assessment/Plan 1. Bilateral pulmonary embolism 2. Mild cardiomegaly noted on imaging 3. Shortness of breath 4. Generalized anxiety 5. Status post left ankle hardware removal January 04, 2025 Plan: Continue medical admission, stepdown floor medicine, will change hydromorphone to as needed for breakthrough pain Williamson 1 tab every 4 hours for mild to moderate pain, 2 tabs every 4 hours as needed for severe pain Supportive measures, oxygen only as needed to maintain sats above 92%, was stable on room air, keepoff oxygen at this time and monitor Discussed with nursing staff to loosen left ankle Bon wrap, encourage elevation for comfort Will follow-up echocardiogram and lower extremity DVT studies, EKG is reassuring and no evidence ofheart strain thus far Therapeutic Lovenox dosing, transition to Eliquis at discharge Home gabapentin in place to assist with pain control Level of Care Indication SD monitor (other: specify in note) DVT Prophylaxis Full anticoagulation Maintenance IVF Indication NA / No maintenance IVF Indwelling Urinary Catheter Indication NA No indwelling catheter Anticipated Timeline of Discharge 24 hours Anticipated DC Disposition Home without services Discussed with my collaborating physician Dr. Duval Digitally Signed by DYANA DEVINE on 01/17/2025 12:56 PM [id number] Note* Exam Date Time Procedure Performing Provider Status 01/17/25 12:53 PM VL Venous US/Doppler Both Legs(for DVT) MARIELA GOMEZ MD; Auth (Verified) [id number] Note Date of Service 01/17/2025 Chief Complaint Shortness of breath Subjective Patient is 64-year-old female with previous trimalleolar fracture of the left ankle, surgical removal of hardware on January 04, 2025. Surgery without any complications and she has been with ambulation as tolerated with the boot on. She endorses some worsening pain, swelling of the left lower extremity since removal of hardware. Earlier this day she woke up with some right-sided pleuritic chest pain, shortness of breath and subsequently presented to the emergency department. Initial blood work without significant derangements, hemoglobin and hematocrit stable, no leukocytosis and no electrolyte a bnormalities. proBNP, troponins x 3 and EKG were without evidence of any heart strain. She did havea CTA of chest that showed bilateral pulmonary emboli. Initiated on heparin by weight therapy, transfer to [facility] for further evaluation and management. Echocardiogram and lower extremity DVT studies pending. Patient does endorse today feeling somewhatimproved. She reports pain is better controlled with hydromorphone, lidocaine topical ineffective. Discussion with patient on downgrading to oral narcotic therapy she is agreeable to trial. She has a baseline of taking Williamson every 4-6 hours as needed at home for pain. Discussed and patient agrees with plan for 1-2 Williamson every 4 hours as needed based on pain rating and utilizing hydromorphone for breakthrough pain management. Otherwise patient has remained hemodynamically stable, 98% on room air, recommended weaning oxygen therapy off. She voiced understanding of this and is agreeable. She does endorse some lower extremity discomfort where she has Bon wrap on postoperatively. Swelling of left lower extremity similar to yesterday's appearance. Patient is denying any acute changes or concerns. Objective Vitals and Measurements T: 36.8 C (Oral) TMIN: 36.5 C (Oral) TMAX: 36.8 C (Oral) HR: 78 (Apical) RR: 16 BP: 136/70 SpO2: 95% HT: 167.6 cm WT: 76 kg BMI: 34.85 Intake and Output 7AM Yesterday to 7AM Today Intake and Output (Last 24 hours) Intake Oral Intake 370.00 Output Urinary Catheter Output: 150.00 Stool Count 0.00 Urine Count 1.00 Total Summary Total Intake 370.00 Total Output 150.00 Fluid Balance 220.00 Physical Exam General: Appears comfortable, in no acute distress HEENT: Mucous membranes moist, no nasal drainage Respiratory: Lungs clear, no rales, no rhonchi, no wheezes. Normal respiratory effort. Cardiovascular: Regular rate and regular rhythm Edema/varicosities of extremities: Left lower extremity edema Gastrointestinal: Abdomen soft, NT, ND, without masses. Bowel sounds active x4 Musculoskeletal: No pinpoint tenderness or effusions. Neurological: No tremor or focal weakness Psychiatric: Mood and behavior normal Weight Current Weight Dosing Weight: 97.9 kg (01/16/25) Current Weight: 76 kg (01/17/25) Dosing Weight: 97.9 kg (01/16/25) Medications Medications (12) Active Scheduled: (4) enoxaparin 100 mg/mL syringe 100 mg 1 mL, Subcutaneous, q12h gabapentin 300 mg Capsule 300 mg 1 cap(s), Oral, qHS lidocaine topical 4% patch 1 patch(es), Transdermal, q24h pantoprazole 40 mg EC tablet 40 mg 1 tab(s), Oral, qDayAC Continuous: (0) PRN: (8) acetaminophen-HYDROcodone 325-5 mg tablet 1 tab(s), Oral, q4h acetaminophen-HYDROcodone 325-5 mg tablet 2 tab(s), Oral, q4h albuterol - ipratropium 2.5 mg-0.5 mg/3 mL Inhal Yasmeen UD 3 mL, Inhalation, q4hRT dextrose 50% Solution Disp syringe 50 mL 25 gram(s) 50 mL, IV Push, AsDirected hydromorphone 1 mg/mL (1mL) INJ 1 mg 1 mL, IV Push, q4h ibuprofen 400 mg tablet 400 mg 1 tab(s), Oral, q8h ondansetron 2 mg/ 1 mL 2 mL INJ 4 mg 2 mL, IV Push, q4h promethazine 12.5 mg tablet 12.5 mg 1 tab(s), Oral, q6h Lab Results No 36 Hour Lab Data Imaging Results and Diagnostics ORIGINAL EXAMINATION: CTA OF THE CHEST 01/16/2025 6:53 am TECHNIQUE: CTA of the chest was performed after the administration of intravenous contrast. Multiplanar reformatted images are provided for review. MIP images are provided for review. Automated exposure control, iterative reconstruction, and/or weight based adjustment of the mA/kV was utilized to reduce the radiation dose to as low as reasonably achievable. COMPARISON: None. HISTORY: ORDERING SYSTEM PROVIDED HISTORY: Reason for Exam: Pulmonary embolism (PE) suspected, high prob FINDINGS: Pulmonary Arteries: The pulmonary arteries are adequately opacified for evaluation. There are multiple small filling defects in segmental branches of pulmonary arteries in the lower lobes bilaterally consistent with pulmonary emboli. Main pulmonary artery is normal in diameter. There is no evidence of right ventricular strain. Mediastinum: There is no mediastinal mass or lymph node enlargement. The heart is mildly enlarged. There is no pericardial fluid. Thoracic aorta is nonaneurysmal. Lungs/pleura: There is no acute lung infiltrate or edema. No pleural fluid or pneumothorax is present. Upper Abdomen: Limited images of the upper abdomen are unremarkable. Soft Tissues/Bones: No acute bone or soft tissue abnormality. IMPRESSION: 1. Bilateral lower lobe pulmonary emboli. 2. Mild cardiomegaly. EKG Electrocardiogram (EKG) - Ordered -- 01/16/25 16:49:00 EDT Assessment/Plan 1. Bilateral pulmonary embolism 2. Mild cardiomegaly noted on imaging 3. Shortness of breath 4. Generalized anxiety 5. Status post left ankle hardware removal January 04, 2025 Plan: Continue medical admission, stepdown floor medicine, will change hydromorphone to as needed for breakthrough pain Williamson 1 tab every 4 hours for mild to moderate pain, 2 tabs every 4 hours as needed for severe pain Supportive measures, oxygen only as needed to maintain sats above 92%, was stable on room air, keepoff oxygen at this time and monitor Discussed with nursing staff to loosen left ankle Bon wrap, encourage elevation for comfort Will follow-up echocardiogram and lower extremity DVT studies, EKG is reassuring and no evidence ofheart strain thus far Therapeutic Lovenox dosing, transition to Eliquis at discharge Home gabapentin in place to assist with pain control Level of Care Indication SD monitor (other: specify in note) DVT Prophylaxis Full anticoagulation Maintenance IVF Indication NA / No maintenance IVF Indwelling Urinary Catheter Indication NA No indwelling catheter Anticipated Timeline of Discharge 24 hours Anticipated DC Disposition Home without services Discussed with my collaborating physician Dr. Duval Digitally Signed by DYANA DEVINE on 01/17/2025 12:56 PM [id number] Note* Exam Date Time Procedure Performing Provider Status 01/17/25 8:10 AM Echocardiogram, Adult - CV KIRSTEN ALVARADO MD; Auth (Verified) [id number] History and physical note Date of Service 01/16/2025 Chief Complaint Shortness of breath, chest discomfort History of Present Illness Patient is 64-year-old female with previous trimalleolar fracture of the left ankle, surgical removal of hardware on January 04, 2025. Surgery without any complications and she has been with ambulation as tolerated with the boot on. She endorses some worsening pain, swelling of the left lower extremity since removal of hardware. Earlier this day she woke up with some right-sided pleuritic chest pain, shortness of breath and subsequently presented to the emergency department. Initial blood work without significant derangements, hemoglobin and hematocrit stable, no leukocytosis and no electrolyte a bnormalities. proBNP, troponins x 3 and EKG were without evidence of any heart strain. She did havea CTA of chest that showed bilateral pulmonary emboli. Initiated on heparin by weight therapy, transfer to [facility] for further evaluation and management. On evaluation she does endorse some continued generalized chest discomfort and shortness of breath,general anxiety. Generally feeling unwell. Today denies any gastrointestinal symptoms. Does endorseleft lower extremity swelling and discomfort. Chronically on hydrocodone therapy for pain control from procedures from ankle. Discussed plan of care for admission, echocardiogram, Lovenox therapeuticdosing with transition to apixaban. Will obtain ultrasound studies of lower extremities for DVTs. Voices understanding of plan of care and is agreeable. Review of Systems Constitutional: Appetite is fair. No fever. No chills. HEENT: Eyes: No blurring, discharge, or pain. ENT: No congestion, discharge or epistaxis Respiratory: No cough, No hemoptysis. Positive dyspnea Cardiovascular: Positive chest pain. No claudication. Gastrointestinal: No constipation, diarrhea, nausea, vomiting or abdominal pain. No dysphagia. Genitourinary: No dysuria, frequency, or urgency. Neurological: No new focal weakness. No seizure or tremor. Musculoskeletal: No contractures, positive left lower extremity pain and swelling Endocrine: No hot or cold intolerance. No hypoglycemia. Skin: No rash, tears or wounds. Next Mental status: No acute change in cognition. Physical Exam Vitals and Measurements HT: 167.6 cm WT: 97.9 kg BMI: 34.85 Weight Dosing Weight: 97.9 kg (01/16/25) General: Appears acutely ill, diaphoretic, in no acute distress HEENT: Mucous membranes moist, no nasal drainage Respiratory: Lungs clear, no rales, no rhonchi, no wheezes. Normal respiratory effort. Cardiovascular: Tachycardic rate and regular rhythm Edema/varicosities of extremities: Left lower extremity edema Gastrointestinal: Abdomen soft, NT, ND, without masses. Bowel sounds active x4 Genitourinary: No suprapubic/CVA tenderness or bladder distention. Musculoskeletal: No pinpoint tenderness or effusions. Skin: No rashes or lesions noted Neurological: No tremor or focal weakness Psychiatric: Mood and behavior normal Imaging Results and Diagnostics ORIGINAL EXAMINATION: CTA OF THE CHEST 01/16/2025 6:53 am TECHNIQUE: CTA of the chest was performed after the administration of intravenous contrast. Multiplanar reformatted images are provided for review. MIP images are provided for review. Automated exposure control, iterative reconstruction, and/or weight based adjustment of the mA/kV was utilized to reduce the radiation dose to as low as reasonably achievable. COMPARISON: None. HISTORY: ORDERING SYSTEM PROVIDED HISTORY: Reason for Exam: Pulmonary embolism (PE) suspected, high prob FINDINGS: Pulmonary Arteries: The pulmonary arteries are adequately opacified for evaluation. There are multiple small filling defects in segmental branches of pulmonary arteries in the lower lobes bilaterally consistent with pulmonary emboli. Main pulmonary artery is normal in diameter. There is no evidence of right ventricular strain. Mediastinum: There is no mediastinal mass or lymph node enlargement. The heart is mildly enlarged. There is no pericardial fluid. Thoracic aorta is nonaneurysmal. Lungs/pleura: There is no acute lung infiltrate or edema. No pleural fluid or pneumothorax is present. Upper Abdomen: Limited images of the upper abdomen are unremarkable. Soft Tissues/Bones: No acute bone or soft tissue abnormality. IMPRESSION: 1. Bilateral lower lobe pulmonary emboli. 2. Mild cardiomegaly. EKG Sinus tachycardia Assessment/Plan 1. Bilateral pulmonary embolism 2. Mild cardiomegaly noted on imaging 3. Shortness of breath 4. Generalized anxiety 5. Status post left ankle hardware removal January 04, 2025 Plan: Admit to medicine, observation status, not likely to require 2 midnights given that she is hemodynamically stable without any evidence of heart strain with her pulmonary embolism, can be managed withanticoagulation, does not appear to be complicated at this time and will require 24-hour period of monitoring Stable for regular floor as she is hemodynamically stable Oxygen as needed to maintain sats above 92% and for comfort Lovenox therapeutic dosing Echocardiogram pending, lower extremity DVT ultrasound studies ordered Comfort and supportive measures with antiemetic, acetaminophen, hydromorphone as needed for pain control. Home gabapentin initiated Level of Care Indication Regular Floor DVT Prophylaxis Full anticoagulation Maintenance IVF Indication NA / No maintenance IVF Indwelling Urinary Catheter Indication NA No indwelling catheter Anticipated Timeline of Discharge 24 hours Anticipated DC Disposition Home without services Discussed with my collaborating physician Dr. Duval Problem List/Past Medical History Previous left ankle surgeries No chronic conditions Procedure/Surgical History Operation on ganglion cyst Appendectomy Tubal ligation Tonsillectomy Medications Home Medications (7) Active acetaminophen-hydrocodone 300 mg-5 mg oral tablet 1 tab(s), PRN, Oral, q6h Aleve 220 mg oral tablet 440 mg = 2 tab(s), PRN, Oral, BID aspirin 81 mg, Oral, BID gabapentin 300 mg, Oral, qHS ibuprofen 800 mg, PRN, Oral, q8h Tylenol 1,000 mg, PRN, Oral, q8h Zofran 4 mg oral tablet 4 mg = 1 tab(s), PRN, Oral, q6h Allergies Contrast dye Hives Social History Alcohol Use: Current. Frequency: 1-2 times per year., 02/28/2020 Home/Environment Domestic Concerns: None. Living situation: Home/Independent. 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 Lives In: Multilevel home. Current Home Treatments None. Professional Skilled Services or Special Community Resources None. Spouse Name: Julian. Marital Status: ., 02/28/2020 Nutrition/Health Type of diet: Regular. Appetite Good. Eating Difficulties None. Caffeine intake amount: 1 serving twice weekly., 02/28/2020 Substance Abuse Use: Never., 02/28/2020 Tobacco Nicotine Use: Never (less than 100 in lifetime)., 02/28/2020 Family History Atrial fibrillation: Father. Breast cancer: Mother. Congestive heart failure: Father. DVT - Deep vein thrombosis of lower limb: Father. Dementia: Mother. Diabetes mellitus: Mother and Father. Heart disease: Mother and Father. Health Status Family Member(s) Immunizations SARS-CoV-2 (COVID-19) mRNA-1273 vaccine: 0 unknown unit (05/14/21) SARS-CoV-2 (COVID-19) mRNA-1273 vaccine: 0 unknown unit (07/23/20) SARS-CoV-2 (COVID-19) mRNA-1273 vaccine: 0 unknown unit (06/25/20) tetanus/diphtheria/pertussMUL.ORD![id number]: 0.5 unknown unit (11/30/24) tetanus/diphtheria/pertussMUL.ORD![id number]: 0 unknown unit (04/08/15) Code Status No qualifying data available. Digitally Signed by DYANA DEVINE on 01/16/2025 03:16 PM [id number] History and physical note Date of Service 01/16/2025 Chief Complaint Shortness of breath, chest discomfort History of Present Illness Patient is 64-year-old female with previous trimalleolar fracture of the left ankle, surgical removal of hardware on January 04, 2025. Surgery without any complications and she has been with ambulation as tolerated with the boot on. She endorses some worsening pain, swelling of the left lower extremity since removal of hardware. Earlier this day she woke up with some right-sided pleuritic chest pain, shortness of breath and subsequently presented to the emergency department. Initial blood work without significant derangements, hemoglobin and hematocrit stable, no leukocytosis and no electrolyte a bnormalities. proBNP, troponins x 3 and EKG were without evidence of any heart strain. She did havea CTA of chest that showed bilateral pulmonary emboli. Initiated on heparin by weight therapy, transfer to [facility] for further evaluation and management. On evaluation she does endorse some continued generalized chest discomfort and shortness of breath,general anxiety. Generally feeling unwell. Today denies any gastrointestinal symptoms. Does endorseleft lower extremity swelling and discomfort. Chronically on hydrocodone therapy for pain control from procedures from ankle. Discussed plan of care for admission, echocardiogram, Lovenox therapeuticdosing with transition to apixaban. Will obtain ultrasound studies of lower extremities for DVTs. Voices understanding of plan of care and is agreeable. Review of Systems Constitutional: Appetite is fair. No fever. No chills. HEENT: Eyes: No blurring, discharge, or pain. ENT: No congestion, discharge or epistaxis Respiratory: No cough, No hemoptysis. Positive dyspnea Cardiovascular: Positive chest pain. No claudication. Gastrointestinal: No constipation, diarrhea, nausea, vomiting or abdominal pain. No dysphagia. Genitourinary: No dysuria, frequency, or urgency. Neurological: No new focal weakness. No seizure or tremor. Musculoskeletal: No contractures, positive left lower extremity pain and swelling Endocrine: No hot or cold intolerance. No hypoglycemia. Skin: No rash, tears or wounds. Next Mental status: No acute change in cognition. Physical Exam Vitals and Measurements HT: 167.6 cm WT: 97.9 kg BMI: 34.85 Weight Dosing Weight: 97.9 kg (01/16/25) General: Appears acutely ill, diaphoretic, in no acute distress HEENT: Mucous membranes moist, no nasal drainage Respiratory: Lungs clear, no rales, no rhonchi, no wheezes. Normal respiratory effort. Cardiovascular: Tachycardic rate and regular rhythm Edema/varicosities of extremities: Left lower extremity edema Gastrointestinal: Abdomen soft, NT, ND, without masses. Bowel sounds active x4 Genitourinary: No suprapubic/CVA tenderness or bladder distention. Musculoskeletal: No pinpoint tenderness or effusions. Skin: No rashes or lesions noted Neurological: No tremor or focal weakness Psychiatric: Mood and behavior normal Imaging Results and Diagnostics ORIGINAL EXAMINATION: CTA OF THE CHEST 01/16/2025 6:53 am TECHNIQUE: CTA of the chest was performed after the administration of intravenous contrast. Multiplanar reformatted images are provided for review. MIP images are provided for review. Automated exposure control, iterative reconstruction, and/or weight based adjustment of the mA/kV was utilized to reduce the radiation dose to as low as reasonably achievable. COMPARISON: None. HISTORY: ORDERING SYSTEM PROVIDED HISTORY: Reason for Exam: Pulmonary embolism (PE) suspected, high prob FINDINGS: Pulmonary Arteries: The pulmonary arteries are adequately opacified for evaluation. There are multiple small filling defects in segmental branches of pulmonary arteries in the lower lobes bilaterally consistent with pulmonary emboli. Main pulmonary artery is normal in diameter. There is no evidence of right ventricular strain. Mediastinum: There is no mediastinal mass or lymph node enlargement. The heart is mildly enlarged. There is no pericardial fluid. Thoracic aorta is nonaneurysmal. Lungs/pleura: There is no acute lung infiltrate or edema. No pleural fluid or pneumothorax is present. Upper Abdomen: Limited images of the upper abdomen are unremarkable. Soft Tissues/Bones: No acute bone or soft tissue abnormality. IMPRESSION: 1. Bilateral lower lobe pulmonary emboli. 2. Mild cardiomegaly. EKG Sinus tachycardia Assessment/Plan 1. Bilateral pulmonary embolism 2. Mild cardiomegaly noted on imaging 3. Shortness of breath 4. Generalized anxiety 5. Status post left ankle hardware removal January 04, 2025 Plan: Admit to medicine, observation status, not likely to require 2 midnights given that she is hemodynamically stable without any evidence of heart strain with her pulmonary embolism, can be managed withanticoagulation, does not appear to be complicated at this time and will require 24-hour period of monitoring Stable for regular floor as she is hemodynamically stable Oxygen as needed to maintain sats above 92% and for comfort Lovenox therapeutic dosing Echocardiogram pending, lower extremity DVT ultrasound studies ordered Comfort and supportive measures with antiemetic, acetaminophen, hydromorphone as needed for pain control. Home gabapentin initiated Level of Care Indication Regular Floor DVT Prophylaxis Full anticoagulation Maintenance IVF Indication NA / No maintenance IVF Indwelling Urinary Catheter Indication NA No indwelling catheter Anticipated Timeline of Discharge 24 hours Anticipated DC Disposition Home without services Discussed with my collaborating physician Dr. Duval Problem List/Past Medical History Previous left ankle surgeries No chronic conditions Procedure/Surgical History Operation on ganglion cyst Appendectomy Tubal ligation Tonsillectomy Medications Home Medications (7) Active acetaminophen-hydrocodone 300 mg-5 mg oral tablet 1 tab(s), PRN, Oral, q6h Aleve 220 mg oral tablet 440 mg = 2 tab(s), PRN, Oral, BID aspirin 81 mg, Oral, BID gabapentin 300 mg, Oral, qHS ibuprofen 800 mg, PRN, Oral, q8h Tylenol 1,000 mg, PRN, Oral, q8h Zofran 4 mg oral tablet 4 mg = 1 tab(s), PRN, Oral, q6h Allergies Contrast dye Hives Social History Alcohol Use: Current. Frequency: 1-2 times per year., 02/28/2020 Home/Environment Domestic Concerns: None. Living situation: Home/Independent. 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 Lives In: [facility] home. Current Home Treatments None. Professional Skilled Services or Special Community Resources None. Spouse Name: Julian. Marital Status: ., 02/28/2020 Nutrition/Health Type of diet: Regular. Appetite Good. Eating Difficulties None. Caffeine intake amount: 1 serving twice weekly., 02/28/2020 Substance Abuse Use: Never., 02/28/2020 Tobacco Nicotine Use: Never (less than 100 in lifetime)., 02/28/2020 Family History Atrial fibrillation: Father. Breast cancer: Mother. Congestive heart failure: Father. DVT - Deep vein thrombosis of lower limb: Father. Dementia: Mother. Diabetes mellitus: Mother and Father. Heart disease: Mother and Father. Health Status Family Member(s) Immunizations SARS-CoV-2 (COVID-19) mRNA-1273 vaccine: 0 unknown unit (05/14/21) SARS-CoV-2 (COVID-19) mRNA-1273 vaccine: 0 unknown unit (07/23/20) SARS-CoV-2 (COVID-19) mRNA-1273 vaccine: 0 unknown unit (06/25/20) tetanus/diphtheria/pertussMUL.ORD![id number]: 0.5 unknown unit (06/06/25) tetanus/diphtheria/pertussMUL.ORD![id number]: 0 unknown unit (04/08/15) Code Status No qualifying data available. Digitally Signed by DYANA DEVINE on 01/16/2025 03:16 PM [id number] History and physical note Date of Service 01/16/2025 Chief Complaint Shortness of breath, chest discomfort History of Present Illness Patient is 64-year-old female with previous trimalleolar fracture of the left ankle, surgical removal of hardware on January 04, 2025. Surgery without any complications and she has been with ambulation as tolerated with the boot on. She endorses some worsening pain, swelling of the left lower extremity since removal of hardware. Earlier this day she woke up with some right-sided pleuritic chest pain, shortness of breath and subsequently presented to the emergency department. Initial blood work without significant derangements, hemoglobin and hematocrit stable, no leukocytosis and no electrolyte a bnormalities. proBNP, troponins x 3 and EKG were without evidence of any heart strain. She did havea CTA of chest that showed bilateral pulmonary emboli. Initiated on heparin by weight therapy, transfer to [facility] for further evaluation and management. On evaluation she does endorse some continued generalized chest discomfort and shortness of breath,general anxiety. Generally feeling unwell. Today denies any gastrointestinal symptoms. Does endorseleft lower extremity swelling and discomfort. Chronically on hydrocodone therapy for pain control from procedures from ankle. Discussed plan of care for admission, echocardiogram, Lovenox therapeuticdosing with transition to apixaban. Will obtain ultrasound studies of lower extremities for DVTs. Voices understanding of plan of care and is agreeable. Review of Systems Constitutional: Appetite is fair. No fever. No chills. HEENT: Eyes: No blurring, discharge, or pain. ENT: No congestion, discharge or epistaxis Respiratory: No cough, No hemoptysis. Positive dyspnea Cardiovascular: Positive chest pain. No claudication. Gastrointestinal: No constipation, diarrhea, nausea, vomiting or abdominal pain. No dysphagia. Genitourinary: No dysuria, frequency, or urgency. Neurological: No new focal weakness. No seizure or tremor. Musculoskeletal: No contractures, positive left lower extremity pain and swelling Endocrine: No hot or cold intolerance. No hypoglycemia. Skin: No rash, tears or wounds. Next Mental status: No acute change in cognition. Physical Exam Vitals and Measurements HT: 167.6 cm WT: 97.9 kg BMI: 34.85 Weight Dosing Weight: 97.9 kg (01/16/25) General: Appears acutely ill, diaphoretic, in no acute distress HEENT: Mucous membranes moist, no nasal drainage Respiratory: Lungs clear, no rales, no rhonchi, no wheezes. Normal respiratory effort. Cardiovascular: Tachycardic rate and regular rhythm Edema/varicosities of extremities: Left lower extremity edema Gastrointestinal: Abdomen soft, NT, ND, without masses. Bowel sounds active x4 Genitourinary: No suprapubic/CVA tenderness or bladder distention. Musculoskeletal: No pinpoint tenderness or effusions. Skin: No rashes or lesions noted Neurological: No tremor or focal weakness Psychiatric: Mood and behavior normal Imaging Results and Diagnostics ORIGINAL EXAMINATION: CTA OF THE CHEST 01/16/2025 6:53 am TECHNIQUE: CTA of the chest was performed after the administration of intravenous contrast. Multiplanar reformatted images are provided for review. MIP images are provided for review. Automated exposure control, iterative reconstruction, and/or weight based adjustment of the mA/kV was utilized to reduce the radiation dose to as low as reasonably achievable. COMPARISON: None. HISTORY: ORDERING SYSTEM PROVIDED HISTORY: Reason for Exam: Pulmonary embolism (PE) suspected, high prob FINDINGS: Pulmonary Arteries: The pulmonary arteries are adequately opacified for evaluation. There are multiple small filling defects in segmental branches of pulmonary arteries in the lower lobes bilaterally consistent with pulmonary emboli. Main pulmonary artery is normal in diameter. There is no evidence of right ventricular strain. Mediastinum: There is no mediastinal mass or lymph node enlargement. The heart is mildly enlarged. There is no pericardial fluid. Thoracic aorta is nonaneurysmal. Lungs/pleura: There is no acute lung infiltrate or edema. No pleural fluid or pneumothorax is present. Upper Abdomen: Limited images of the upper abdomen are unremarkable. Soft Tissues/Bones: No acute bone or soft tissue abnormality. IMPRESSION: 1. Bilateral lower lobe pulmonary emboli. 2. Mild cardiomegaly. EKG Sinus tachycardia Assessment/Plan 1. Bilateral pulmonary embolism 2. Mild cardiomegaly noted on imaging 3. Shortness of breath 4. Generalized anxiety 5. Status post left ankle hardware removal January 04, 2025 Plan: Admit to medicine, observation status, not likely to require 2 midnights given that she is hemodynamically stable without any evidence of heart strain with her pulmonary embolism, can be managed withanticoagulation, does not appear to be complicated at this time and will require 24-hour period of monitoring Stable for regular floor as she is hemodynamically stable Oxygen as needed to maintain sats above 92% and for comfort Lovenox therapeutic dosing Echocardiogram pending, lower extremity DVT ultrasound studies ordered Comfort and supportive measures with antiemetic, acetaminophen, hydromorphone as needed for pain control. Home gabapentin initiated Level of Care Indication Regular Floor DVT Prophylaxis Full anticoagulation Maintenance IVF Indication NA / No maintenance IVF Indwelling Urinary Catheter Indication NA No indwelling catheter Anticipated Timeline of Discharge 24 hours Anticipated DC Disposition Home without services Discussed with my collaborating physician Dr. Duval Problem List/Past Medical History Previous left ankle surgeries No chronic conditions Procedure/Surgical History Operation on ganglion cyst Appendectomy Tubal ligation Tonsillectomy Medications Home Medications (7) Active acetaminophen-hydrocodone 300 mg-5 mg oral tablet 1 tab(s), PRN, Oral, q6h Aleve 220 mg oral tablet 440 mg = 2 tab(s), PRN, Oral, BID aspirin 81 mg, Oral, BID gabapentin 300 mg, Oral, qHS ibuprofen 800 mg, PRN, Oral, q8h Tylenol 1,000 mg, PRN, Oral, q8h Zofran 4 mg oral tablet 4 mg = 1 tab(s), PRN, Oral, q6h Allergies Contrast dye Hives Social History Alcohol Use: Current. Frequency: 1-2 times per year., 02/28/2020 Home/Environment Domestic Concerns: None. Living situation: Home/Independent. 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 Lives In: Multilevel home. Current Home Treatments None. Professional Skilled Services or Special Community Resources None. Spouse Name: Julian. Marital Status: ., 02/28/2020 Nutrition/Health Type of diet: Regular. Appetite Good. Eating Difficulties None. Caffeine intake amount: 1 serving twice weekly., 02/28/2020 Substance Abuse Use: Never., 02/28/2020 Tobacco Nicotine Use: Never (less than 100 in lifetime)., 02/28/2020 Family History Atrial fibrillation: Father. Breast cancer: Mother. Congestive heart failure: Father. DVT - Deep vein thrombosis of lower limb: Father. Dementia: Mother. Diabetes mellitus: Mother and Father. Heart disease: Mother and Father. Health Status Family Member(s) Immunizations SARS-CoV-2 (COVID-19) mRNA-1273 vaccine: 0 unknown unit (05/14/21) SARS-CoV-2 (COVID-19) mRNA-1273 vaccine: 0 unknown unit (07/23/20) SARS-CoV-2 (COVID-19) mRNA-1273 vaccine: 0 unknown unit (06/25/20) tetanus/diphtheria/pertussMUL.ORD![id number]: 0.5 unknown unit (11/30/24) tetanus/diphtheria/pertussMUL.ORD![id number]: 0 unknown unit (04/08/15) Code Status No qualifying data available. Digitally Signed by DYANA DEVINE on 01/16/2025 03:16 PM [id number] Evaluation + Plan note Diagnostic Tests Pending * APTT 01/16/25 Future Scheduled Tests Radiology* XR Hip 2-3 Views Left 01/01/25 [facility] 07-23-2025 Evaluation + Plan noteExtracted from: Title:History and Physical Author:KHAI DEVINE Date:01/16/25 1. Bilateral pulmonary embol ism 2. Mild cardiomegaly noted on imaging 3. Shortness of breath 4. Generalized anxiety 5. Status post left ankle hardware removal January 04, 2025 Plan: Admit to medicine, observation status, not likely to require 2 midnights given that she is hemodynamically stable without any evidence of heart strain with her pulmonary embolism, can be managed with anticoagulation, does not appear to be complicated at this time and will require 24-hour period of monitoring Stable for regular floor as she is hemodynamically stable Oxygen as needed to maintain sats above 92% and for comfort Lovenox therapeutic dosing Echocardiogram pending, lower extremity DVT ultrasound studies ordered Comfort and supportive measures with antiemetic, acetaminophen, hydromorphone as needed for pain control. Home gabapentin initiated Level of Care Indication Regular Floor DVT Prophylaxis Full anticoagulation Maintenance IVF Indication NA / No maintenance IVF Indwelling Urinary Catheter Indication NA No indwelling catheter Anticipated Timeline of Discharge 24 hours Anticipated DC Disposition Home without services Discussed with my collaborating physician Dr. Iain Mcculloughendum by KECIA DUVAL MD on January 16, 2025 15:20:51 EDT Collaborative Care Team [facility] Medicine This is a shared/split visit Patient was seen and examined during hospitalization Labs imaging and documentation were reviewed Care discussed during a.m. rounds treatment plan was developed independently and implemented with PRELOAD SUPERVISOR assistance 64-year-old with history of trimalleolar fracture removal of hardware on 01/04 who presents with pleuritic type chest pain as well as left lower extremity swelling. Patient was seen in the ED underwent a CT chest which showed bilateral PEs. Troponin was WNL x 3 BNP WNL. CBC and metabolic panel were WNL. Patient was saturating approximately 98% was placed on 2 L nasal cannula apparently for comfort. During my interaction patient appeared anxious I did wean patient to room air was approximately 97%. Patient is awake alert oriented x 4 lungs are clear to auscultation no wheezes rales or rhonchi. Patient does have left greater than right lower extremity edema. Patient was transferred for acute pulmonary embolism patient does not appear to have right heart strain. Patient with uncontrolled pain. Takes opiates at home. Will continue with full dose Lovenox. Continue with multimodal pain regimen including topical lidocaine, IV Tylenol, NSAID. Continue home medications as indicated. Discussed treatment plan with patient and family at bedside answered all questions. Addendum by KECIA DUVAL MD on January 17, 2025 06:48:25 EDT Reviewed outpatient medications patient is on Vicodin at baseline likely for pain associated with previously stated orthopedic procedure. Per patient at bedside she takes this 4 times daily patient likely has a component of opiate tolerance. Future Scheduled Tests Radiology* XR Hip 2-3 Views Left 01/01/25 [facility] 07-23-2025 Note* Exam Date Time Procedure Performing Provider Status 01/16/25 6:[address] Angiography Chest w/ Contrast KIT MAGALLON MD; Auth (Verified) [id number] ORIGINAL EXAMINATION: CTA OF THE CHEST 01/16/2025 6:53 am TECHNIQUE: CTA of the chest was performed after the administration of intravenous contrast. Multiplanar reformatted images are provided for review. MIP images are provided for review. Automated exposure control, iterative reconstruction, and/or weight based adjustment of the mA/kV was utilized to reduce the radiation dose to as low as reasonably achievable. COMPARISON: None. HISTORY: ORDERING SYSTEM PROVIDED HISTORY: Reason for Exam: Pulmonary embolism (PE) suspected, high prob FINDINGS: Pulmonary Arteries: The pulmonary arteries are adequately opacified for evaluation. There are multiple small filling defects in segmental branches of pulmonary arteries in the lower lobes bilaterally consistent with pulmonary emboli. Main pulmonary artery is normal in diameter. There is no evidence of right ventricular strain. Mediastinum: There is no mediastinal mass or lymph node enlargement. The heart is mildly enlarged. There is no pericardial fluid. Thoracic aorta is nonaneurysmal. Lungs/pleura: There is no acute lung infiltrate or edema. No pleural fluid or pneumothorax is present. Upper Abdomen: Limited images of the upper abdomen are unremarkable. Soft Tissues/Bones: No acute bone or soft tissue abnormality. IMPRESSION: 1. Bilateral lower lobe pulmonary emboli. 2. Mild cardiomegaly. Interpreted by: Kit Magallon MD Preliminary Report By: Kit Magallon MD Electronically signed By Kit Magallon MD Dictated Date: 01/16/2025 6:57:37 AM Prelim Date: 01/16/2025 7:01:45 AM Sign Date: 01/16/2025 7:01:45 AM Ordering Provider: TAO BURR [facility]07-23-2025 Note* Exam Date Time Procedure Performing Provider Status 01/16/25 6:29 AM EKG [ED AOH] - CV MD TAO BURR MD; Auth (Verified) ECG Final Report Sinus rhythm Electronic Signature: MD TAO BURR MD 01/16/2025 06:42:08 [facility]07-23-2025 Note* Exam Date Time Procedure Performing Provider Status 01/16/25 6:08 AM EKG [ED AOH] - CV MD TAO BURR MD; Auth (Verified) ECG Final Report SINUS RHYTHM Electronic Signature: MD TAO BURR MD 01/16/2025 06:17:31 [facility]07-09-2025 Note* Exam Date Time Procedure Performing Provider Status 01/02/25 1:09 PM XR Hip 2-3 Views Left RICHIE NICK; Auth (Verified) [id number] ORIGINAL EXAMINATION: 2 XRAY VIEWS OF THE LEFT HIP 01/02/2025 1:09 pm COMPARISON: None. HISTORY: ORDERING SYSTEM PROVIDED HISTORY: Reason for Exam: LEFT HIP PAIN FINDINGS: Early osteophyte formation and joint space narrowing affects the left hip. There is no acute fracture infiltrative bony lesion. Skeletal elements appear intact. There is no acute or healing fracture involving the left femoral head, neck or proximal shaft. IMPRESSION: 1. Early osteoarthritis left hip. 2. No acute bony abnormality. Interpreted by: Richie Nick DO Preliminary Report By: Richie Nick DO Electronically signed By Richie Nick DO Dictated Date: 01/02/2025 2:55:31 PM Prelim Date: 01/02/2025 2:56:32 PM Sign Date: 01/02/2025 2:56:32 PM Ordering Provider: TUYET PADILLA Interpreted by: Richie Nick DO Preliminary Report By: Richie Nick DO Electronically signed By Richie Nick DO Dictated Date: 01/02/2025 2:55:31 PM Prelim Date: 01/02/2025 2:56:32 PM Sign Date: 01/02/2025 2:56:32 PM Ordering Provider: TUYET PADILLA [facility]07-08-2025 Evaluation + Plan note Future Scheduled Tests Radiology* XR Hip 2-3 Views Left 01/01/25 [facility] 03-19-2025 NoteHNO ID: [id number] Author: TUYET COURTNEY DO Service: ? Author Type: Physician Type: Progress Notes Filed: 09/12/2024 09:29 Note Text: [facility] OLIVERIO Sanchez is a 64 year old female. Patient presents with: Cough: Cough, left ear pressure, sore throat and nasal drainage x 3 days Patient is having surgery in less than 2 weeks. She is concerned that her illness will get in the way of her having her hip replaced. Symptoms have gotten slightly worse since they started. Cough Associated symptoms include ear congestion. Pertinent negatives include no chest pain, no shortness of breath and no wheezing. Her past medical history does not include COPD. URI She complains of cough and sputum production. There is no chest tightness, difficulty breathing, shortness of breath or wheezing. This is a new problem. The current episode started in the past 7 days. The problem occurs constantly. The problem has been gradually worsening. The cough is productive of sputum. Associated symptoms include ear congestion, malaise/fatigue and nasal congestion. Pertinent negatives include no chest pain or fever. Her symptoms are aggravated by minimal activity. There are no known risk factors for lung disease. There is no history of COPD. Review of Systems Constitutional: Positive for malaise/fatigue. Negative for fever. Respiratory: Positive for cough and sputum production. Negative for shortness of breath and wheezing. Cardiovascular: Negative for chest pain. Objective BP 130/85 Pulse 82 Temp 36.4 ?C (97.6 ?F) Resp 18 Wt 98.4 kg (217 lb) SpO2 97% Physical Exam Vitals and nursing note reviewed. Constitutional: General: She is not in acute distress. Appearance: Normal appearance. She is not ill-appearing, toxic-appearing or diaphoretic. HENT: Head: Normocephalic and atraumatic. Comments: Frontal sinus tenderness Right Ear: Tympanic membrane, ear canal and external ear normal. Left Ear: Tympanic membrane, ear canal and external ear normal. Nose: Congestion and rhinorrhea present. Mouth/Throat: Mouth: Mucous membranes are moist. Pharynx: No oropharyngeal exudate or posterior oropharyngeal erythema. Eyes: General: Right eye: No discharge. Left eye: No discharge. Extraocular Movements: Extraocular movements intact. Cardiovascular: Rate and Rhythm: Normal rate and regular rhythm. Pulses: Normal pulses. Heart sounds: Normal heart sounds. No murmur heard. Pulmonary: Effort: Pulmonary effort is normal. No respiratory distress. Breath sounds: Normal breath sounds. Musculoskeletal: Cervical back: Normal range of motion and neck supple. No rigidity or tenderness. Lymphadenopathy: Cervical: No cervical adenopathy. Skin: General: Skin is warm and dry. Capillary Refill: Capillary refill takes less than 2 seconds. Neurological: Mental Status: She is alert. {ASSESSMENT/PLAN: 1. Sinobronchitis - ICD9: 473.9, 490, ICD10: J32.9, J40 -Discussed at length with patient her concerns about her surgery.using shared decision making, we will prescribe Zithromax pack as directed for patient to start taking if symptoms do not improve in the next 4 days -Discussed symptoms are likely viral at this time, declines viral testing - Supportive care with plenty of fluids, rest, and analgesia prn - Follow up with PCP in 3-5 days if symptoms persist or worsen. -To ER with any chest pain, difficulty breathing, fever greater than 104 Fahrenheit, or vomiting - AZITHROMYCIN 250 MG TABLET Tuyet Courtney DO History and Record Review Clinical information obtained from an independent historian. History obtained from or confirmed by: spouse. Differential Diagnoses - Sinobronchitis is more likely for the following reason(s): suggested by HANDP - Community-acquired pneumonia is less likely for the following reason(s): HANDP not suggestive Disposition The patient was discharged. [facility]03-19-2025 History of Present illness Narrative* Tuyet Courtney DO - 09/12/2024 9:26 AM EDT [facility] NESHAN Erna Sanchez is a 64 year old female. Patient presents with: Cough: Cough, left ear pressure, sore throat and nasal drainage x 3 days Patient is having surgery in less than 2 weeks. She is concerned that her illness will get in the way of her having her hip replaced. Symptoms have gotten slightly worse since they started. Cough Associated symptoms include ear congestion. Pertinent negatives include no chest pain, no shortnessof breath and no wheezing. Her past medical history does not include COPD. URI She complains of cough and sputum production. There is no chest tightness, difficulty breathing, shortness of breath or wheezing. This is a new problem. The current episode started in the past 7 days. The problem occurs constantly. The problem has been gradually worsening. The cough is productive of sputum. Associated symptoms include ear congestion, malaise/fatigue and nasal congestion. Pertinent negatives include no chest pain or fever. Her symptoms are aggravated by minimal activity. There are no known risk factors for lung disease. There is no history of COPD. Review of Systems Constitutional: Positive for malaise/fatigue. Negative for fever. Respiratory: Positive for cough and sputum production. Negative for shortness of breath and wheezing. Cardiovascular: Negative for chest pain. Objective BP 130/85 Pulse 82 Temp 36.4 C (97.6 F) Resp 18 Wt 98.4 kg (217 lb) SpO2 97% Physical Exam Vitals and nursing note reviewed. Constitutional: General: She is not in acute distress. Appearance: Normal appearance. She is not ill-appearing, toxic-appearing or diaphoretic. HENT: Head: Normocephalic and atraumatic. Comments: Frontal sinus tenderness Right Ear: Tympanic membrane, ear canal and external ear normal. Left Ear: Tympanic membrane, ear canal and external ear normal. Nose: Congestion and rhinorrhea present. Mouth/Throat: Mouth: Mucous membranes are moist. Pharynx: No oropharyngeal exudate or posterior oropharyngeal erythema. Eyes: General: Right eye: No discharge. Left eye: No discharge. Extraocular Movements: Extraocular movements intact. Cardiovascular: Rate and Rhythm: Normal rate and regular rhythm. Pulses: Normal pulses. Heart sounds: Normal heart sounds. No murmur heard. Pulmonary: Effort: Pulmonary effort is normal. No respiratory distress. Breath sounds: Normal breath sounds. Musculoskeletal: Cervical back: Normal range of motion and neck supple. No rigidity or tenderness. Lymphadenopathy: Cervical: No cervical adenopathy. Skin: General: Skin is warm and dry. Capillary Refill: Capillary refill takes less than 2 seconds. Neurological: Mental Status: She is alert. {ASSESSMENT/PLAN: 1. Sinobronchitis - ICD9: 473.9, 490, ICD10: J32.9, J40 -Discussed at length with patient her concerns about her surgery.using shared decision making, we will prescribe Zithromax pack as directed for patient to start taking if symptoms do not improve in the next 4 days -Discussed symptoms are likely viral at this time, declines viral testing - Supportive care with plenty of fluids, rest, and analgesia prn - Follow up with PCP in 3-5 days if symptoms persist or worsen. -To ER with any chest pain, difficulty breathing, fever greater than 104 Fahrenheit, or vomiting - AZITHROMYCIN 250 MG TABLET Tuyet Courtney DO History and Record Review Clinical information obtained from an independent historian. History obtained from or confirmed by:spouse. Differential Diagnoses - Sinobronchitis is more likely for the following reason(s): suggested by H&P - Community-acquired pneumonia is less likely for the following reason(s): H&P not suggestive Disposition The patient was discharged. [facility] Instructions* Patient Instructions* Tuyet Courtney DO - 09/12/2024 9:23 AM EDT Cough You have been seen for your cough. There are many possible causes of cough. Most are not dangerous. Your doctor has determined that itis OK for you to go home today. Your doctor believes your cough was caused by bacteria. Your doctor prescribed an antibiotic that will fight the bacteria. The doctor may have prescribed some medicine to help with your cough. Use the medicine as directed. YOU SHOULD SEEK MEDICAL ATTENTION IMMEDIATELY, EITHER HERE OR AT THE NEAREST EMERGENCY DEPARTMENT, IF ANY OF THE FOLLOWING OCCURS: You wheeze or have trouble breathing. You cough up mucous or lose weight for no reason. You have a fever (temperature higher than 100.4 F / 38 C) that lasts more than 5 days. You have chest pain. Your symptoms get worse or do not get better in 2 or 3 days. You have any new problems or concerns. [facility] Note ORIGINAL FROM: [address] [address] PROCEDURE FOR: HECTOR SANCHEZ [address] [place] [address] Home: PID#: [id number] Exam#: [id number] : 1960 Age: 63 TO: EHSAN GALO NP [facility] [address] [place] [address] EXAMINATION: SCREENING DIGITAL BILATERAL MAMMOGRAM WITH TOMOSYNTHESIS, 01/30/2024 6:57 am TECHNIQUE: Screening mammography of the bilateral breasts was performed with tomosynthesis. 2D standard and 3D tomosynthesis combination imaging performed through both breasts in the MLO and CC projection. Computer aided detection was utilized in the interpretation of this exam. COMPARISON: November 14, 2020, January 28, 2019, September 12, 2017 HISTORY: Breast cancer screening. FINDINGS: BREAST DENSITY: The breasts are heterogeneously dense, which may obscure small masses. There are bilateral benign-type calcifications. There is no significant mass, architectural distortion or microcalcification. Fibroglandular pattern is stable, including bilateral benign-type focal asymmetries.. IMPRESSION: No mammographic evidence of malignancy. Continued screening with annual mammograms is recommended. Consider supplemental annual breast MRI screening given elevated lifetime risk of breast cancer, best performed at six-month intervals between annual screening mammography. Brandi Abraham risk calculations, generated with the history provided, report this patient's 10 year risk and lifetime risk for developing breast cancer at 11.1% and 23.7%, respectively. Based on this assessment tool, if the patient's calculated lifetime risk is below 20%, then the patient is considered at average risk for developing breast cancer. If the patient's calculated lifetime risk is at or above 20%, then the patient is considered high risk for developing breast cancer and may be a candidate for supplemental breast MRI screening in addition to annual mammographic screening per the [place] [employer]. BIRADS: MAMMOGRAM BI-RADS: 2: Benign finding RECALL: 1 year screening RECALL TYPE: mammo LETTER SENT: Normal BI-RADS 1 and 2 Interpreted by: Tamiko Rodriguez Preliminary Report By: Tamiko Rodriguez Electronically signed By Tamiko Rodriguez Dictated Date: 01/30/2024 7:34:46 AM Prelim Date: 01/30/2024 7:44:02 AM Sign Date: 01/30/2024 7:44:02 AM Ordering Provider: EHSAN GALO Mold Setter: CHRIS MAN RT(R)(M) letter sent: Normal BI-RADS 1 and 2 Mammogram BI-RADS: 2 [facility]11-03-2023 Hospital Discharge instructions Patient Education 04/29/2023 12:56:58 1- [facility] General Discharge Guidelines (03/11/2023) (Custom) [place] SAME DAY SURGERY DISCHARGE INSTRUCTIONS PLEASE FOLLOW THE INSTRUCTIONS BELOW MARKED WITH AN X: __X_Regular Diet: Start with clear liquids, then soup and crackers. Gradually add other foods unless otherwise instructed by your surgeon __X_Drink extra fluids ACTIVTY: __X_Since you have had anesthetic, it would be advisable not to drive, drink alcohol, or make majordecisions over the next 24 hours. You may require more rest tonight and tomorrow __X_Do not drive vehicle while taking narcotics and as directed by your Surgeon ____Restrict activity as follows: ____Do not have sexual intercourse. Nothing in the vagina-No tampons or Douching ____No heavy lifting, pushing, or straining ____Elevate operative limb ____Ice as directed __X_Follow all written and verbal instructions given to you by your Doctor ____Other: BATHING/SHOWERING ____Sponge bathe until office visit. ____Sitting in tub of warm water may relieve discomfort ____May tub bathe ____May shower in 24-48 hours with clean linen unless otherwise instructed by your Doctor DRESSING: _X___Keep operative area clean and dry ____Check the operative area for signs of bleeding. Apply pressure to the bleeding site if necessary. ____Change drip pad as needed ____Wear scrotal support for comfort WATCH FOR SIGNS OF INFECTION: (Usually appears 36-48 hours after surgery) Increased temperature (101 degrees Fahrenheit or higher) Redness or swelling Increased pain Foul odor or drainage If you have any questions, please call your doctor at the number listed on your follow-up instructions. 04/29/2023 12:55:09 How to Care for an External Fixator How to Care for an External Fixator An external fixator is a device that holds a broken bone in a stable (fixed) position until it heals. This device is often used on the arms, legs, pelvis, or neck. It is attached to the bones with screws that are called pins or bolts. The pins are drilled into the bone on each side of the break andare attached to a metal or carbon fiber santi with nuts. When the bone is fully healed, the external fixator is removed. The type of external fixator that you have will depend on which bone is broken. Most people need anexternal fixator for 6 12 weeks. Sometimes, it is needed for up to 1 year for fractures that heal slowly or fractures that require slow alteration in alignment. What are the risks? Generally, external fixators are safe to wear. However, problems may occur, including infection at the pin sites. Supplies needed: Pin-cleaning solution. Sterile cotton swabs. Sterile split gauze. Square gauze. Clean washcloth. Towel. How to clean your pin sites Clean the pin sites two times a day or as often as told by your health care provider. Pin sites arethe spots where the pins go through your skin. There are various types of pin-cleaning solutions. Use the solution that is recommended by your health care provider. 1.Wash your hands with soap and water. 2.Remove the old split gauze from each pin and discard it in a trash bin. 3.Wash your hands again with soap and water. 4.Pour the cleaning solution in a sterile container. 5.Dip a cotton swab in the solution. Swab around the base of the pin, where it meets your skin. Usea circular motion. If your skin has moved up onto the pin, gently push it back down. Remove any crusts that have formed on the pin. After you have swabbed the base of the pin, clean the rest of the pin. 6.Use a new swab for each pin. 7.Dry each pin site with a clean cotton swab. 8.If directed by your health care provider, apply an antibiotic ointment. 9.Place a new split gauze on each pin. Check the pin sites every day for signs of infection. Check for: Redness, swelling, or pain. Fluid or blood. Warmth. Pus or a bad smell. How to care for your external fixator Different types of external fixators will have different instructions for care. Your health care provider will tell you how to care for the type that you have. In general, you should: Examine your external fixator every day. ?Check for any loose pins. One sign of looseness is pain at the site where the pin exits the skin or pain at the site of the break. ?Make sure the nuts are tight. Your health care provider may show you how to tighten the nuts. However, do not make any adjustments to your external fixator unless told to do so by your health care provider. Clean the frame of the fixator two times a week or as often as told by your health care provider. 1.Use a square gauze or a clean washcloth that is moistened with rubbing alcohol and water to cleanthe frame. 2.After you clean the frame, wipe it dry with a towel. 3.Use a new gauze square or clean washcloth, and a clean towel for each cleaning. Follow these instructions at home: Bathing Do not take baths, swim, or use a hot tub until your health care provider approves. Ask your healthcare provider if you may take showers. You may only be allowed to take sponge baths. When you are allowed to shower, ask your health care provider if you need to cover your external fixator with a waterproof covering. General instructions Take snak-rfw-tyziaca and prescription medicines only as told by your health care provider. Return to your normal activities as told by your health care provider. Ask your health care provider what activities are safe for you. Keep all follow-up visits as told by your health care provider. This is important. Contact a health care provider if: You have redness, swelling, or pain at any pin site. You have fluid or blood coming from a pin site. A pin site feels warm to the touch. You have pus or a bad smell coming from a pin site. You have a fever. Get help right away if: A pin moves or becomes loose. You have increasing pain where your bone was broken. Summary An external fixator is a device that holds a broken bone in a stable (fixed) position until it heals. Most people need an external fixator for 6 12 weeks. Your health care provider will tell you how to care for the type of external fixator that you have. When the bone is fully healed, the external fixator is removed. This information is not intended to replace advice given to you by your health care provider. Make sure you discuss any questions you have with your health care provider. Document Released: 02/23/2012 Document Revised: 08/10/2019 Document Reviewed: 08/13/2019 Elsevier Patient Education 2020 [employer] Follow Up Care 04/28/2023 08:54:26 With:LINO HARPER DO Address: [address] [facility]/[place] [address]- [phone] When: Unknown Comments:Please make a follow up appointment if one has not been made. [facility] 11-03-2023 Note ORIGINAL EXAMINATION: SPOT FLUOROSCOPIC IMAGES 04/29/2023 1:12 pm TECHNIQUE: Fluoroscopy was provided by the radiology department for procedure. Radiologist was not present during examination. FLUOROSCOPY DOSE AND TYPE: Radiation Exposure Index: Referenced air kerma, 1.2 mGy COMPARISON: None HISTORY: ORDERING SYSTEM PROVIDED HISTORY: Reason for Exam: LT ANKLE FX Intraprocedural imaging. FINDINGS: Spot intraoperative images are obtained demonstrating left ankle external fixation. IMPRESSION: Intraprocedural fluoroscopic spot images as above. See separate procedure report for more information. I have personally reviewed the images of this examination and agree with the resident's finding and interpretation. Interpreted by: Dajuan Lam MD Preliminary Report By: Jay Patel Electronically signed By Dajuan Lam MD Dictated Date: 04/29/2023 4:14:02 PM Prelim Date: 04/29/2023 4:14:51 PM Sign Date: 04/29/2023 4:24:13 PM Ordering Provider: [facility]Mary [facility] [id number] Summary of episode note Discharge Instructions Thank you for allowing [facility] to assist you with your healthcare needs. The following is importantdischarge information regarding your hospital visit. Your Care Team ARUNA BAR MD Your Diagnosis Post-op pain Trimalleolar fracture of left ankle What to do next Follow Up Appointments Follow Up with LINO HARPER DO When Why: Please make a follow up appointment if one has not been made. Where: [address] [facility]/[place] [phone] The Following Activity and Diet Have Been Ordered for You Discharge Activity - Ordered -- Non-Weight Bearing Activity Only, 04/29/23 10:16:00 EDT Discharge Driving Restrictions - Ordered -- No driving permitted, 04/29/23 10:16:00 EDT Discharge Diet - Ordered -- Follow the post-operative/post-procedure diet instructions provided by your physician's office.,04/29/23 10:16:00 EDT The Following Equipment Has Been Ordered for You Discharge Home Equipment Discharge Wound Care - Ordered -- Maintain surgical dressings, do not change until f/u with Dr. Harper., 04/29/23 10:16:00 EDT Allergies Contrast dye (Hives) Medications Please ask your primary doctor or pharmacist before taking any other medication not listed, including over the counter drugs, herbal medications, vitamins and or supplements as they may interact withyour home medications. What How Much When Why Instructions Last Dose New enoxaparin (Lovenox 40 mg/ 0.4 mL injectable solution) 0.4 Milliliter Subcutaneous Once a day Duration: 14 Days Pickup at [facility] #[id number] Changed acetaminophen-hydrocodone (Williamson 325- 5 mg oral tablet) 1 tab(s) by mouth Every 6 hours as needed for for pain Trimalleolar fracture of left ankle Post-op pain Duration: 7 Days May take 1-2 tablets / dose Pickup at [facility] #[id number] Unchanged naproxen (Aleve 220 mg oral tablet) 2 tab(s) by mouth Two (2) times a day as needed for as needed for pain Unchanged ondansetron (Zofran 4 mg oral tablet) 1 tab(s) by mouth Every 6 hours as needed for Nausea/Vomiting Pharmacy Information [facility] #[id number]: [address], [place] [phone] Please take this list to your next doctor s visit. Bring all medications you take, including over the counter medications, herbals and other supplements with you to your doctor s visit. Patients and families are reminded to discard old lists and to update any records with all medication providers or retail pharmacies. Education Materials [facility] SAME DAY SURGERY DISCHARGE INSTRUCTIONS PLEASE FOLLOW THE INSTRUCTIONS BELOW MARKED WITH AN X: __X_Regular Diet: Start with clear liquids, then soup and crackers. Gradually add other foods unless otherwise instructed by your surgeon __X_Drink extra fluids ACTIVTY: __X_Since you have had anesthetic, it would be advisable not to drive, drink alcohol, or make majordecisions over the next 24 hours. You may require more rest tonight and tomorrow __X_Do not drive vehicle while taking narcotics and as directed by your Surgeon ____Restrict activity as follows: ____Do not have sexual intercourse. Nothing in the vagina-No tampons or Douching ____No heavy lifting, pushing, or straining ____Elevate operative limb ____Ice as directed __X_Follow all written and verbal instructions given to you by your Doctor ____Other: BATHING/SHOWERING ____Sponge bathe until office visit. ____Sitting in tub of warm water may relieve discomfort ____May tub bathe ____May shower in 24-48 hours with clean linen unless otherwise instructed by your Doctor DRESSING: _X___Keep operative area clean and dry ____Check the operative area for signs of bleeding. Apply pressure to the bleeding site if necessary. ____Change drip pad as needed ____Wear scrotal support for comfort WATCH FOR SIGNS OF INFECTION: (Usually appears 36-48 hours after surgery) Increased temperature (101 degrees Fahrenheit or higher) Redness or swelling Increased pain Foul odor or drainage If you have any questions, please call your doctor at the number listed on your follow-up instructions. How to Care for an External Fixator An external fixator is a device that holds a broken bone in a stable (fixed) position until it heals. This device is often used on the arms, legs, pelvis, or neck. It is attached to the bones with screws that are called pins or bolts. The pins are drilled into the bone on each side of the break andare attached to a metal or carbon fiber santi with nuts. When the bone is fully healed, the external fixator is removed. The type of external fixator that you have will depend on which bone is broken. Most people need anexternal fixator for 6 12 weeks. Sometimes, it is needed for up to 1 year for fractures that heal slowly or fractures that require slow alteration in alignment. What are the risks? Generally, external fixators are safe to wear. However, problems may occur, including infection at the pin sites. Supplies needed: Pin-cleaning solution. Sterile cotton swabs. Sterile split gauze. Square gauze. Clean washcloth. Towel. How to clean your pin sites Clean the pin sites two times a day or as often as told by your health care provider. Pin sites arethe spots where the pins go through your skin. There are various types of pin-cleaning solutions. Use the solution that is recommended by your health care provider. 1. Wash your hands with soap and water. 2. Remove the old split gauze from each pin and discard it in a trash bin. 3. Wash your hands again with soap and water. 4. Pour the cleaning solution in a sterile container. 5. Dip a cotton swab in the solution. Swab around the base of the pin, where it meets your skin. Use acircular motion. If your skin has moved up onto the pin, gently push it back down. Remove any crusts that have formed on the pin. After you have swabbed the base of the pin, clean the rest of the pin. 6. Use a new swab for each pin. 7. Dry each pin site with a clean cotton swab. 8. If directed by your health care provider, apply an antibiotic ointment. 9. Place a new split gauze on each pin. Check the pin sites every day for signs of infection. Check for: Redness, swelling, or pain. Fluid or blood. Warmth. Pus or a bad smell. How to care for your external fixator Different types of external fixators will have different instructions for care. Your health care provider will tell you how to care for the type that you have. In general, you should: Examine your external fixator every day. ? Check for any loose pins. One sign of looseness is pain at the site where the pin exits the skin orpain at the site of the break. ? Make sure the nuts are tight. Your health care provider may show you how to tighten the nuts. However, do not make any adjustments to your external fixator unless told to do so by your health care provider. Clean the frame of the fixator two times a week or as often as told by your health care provider. 1. Use a square gauze or a clean washcloth that is moistened with rubbing alcohol and water to clean the frame. 2. After you clean the frame, wipe it dry with a towel. 3. Use a new gauze square or clean washcloth, and a clean towel for each cleaning. Follow these instructions at home: Bathing Do not take baths, swim, or use a hot tub until your health care provider approves. Ask your healthcare provider if you may take showers. You may only be allowed to take sponge baths. When you are allowed to shower, ask your health care provider if you need to cover your external fixator with a waterproof covering. General instructions Take ksbh-egq-rgmvtmd and prescription medicines only as told by your health care provider. Return to your normal activities as told by your health care provider. Ask your health care provider what activities are safe for you. Keep all follow-up visits as told by your health care provider. This is important. Contact a health care provider if: You have redness, swelling, or pain at any pin site. You have fluid or blood coming from a pin site. A pin site feels warm to the touch. You have pus or a bad smell coming from a pin site. You have a fever. Get help right away if: A pin moves or becomes loose. You have increasing pain where your bone was broken. Summary An external fixator is a device that holds a broken bone in a stable (fixed) position until it heals. Most people need an external fixator for 6 12 weeks. Your health care provider will tell you how to care for the type of external fixator that you have. When the bone is fully healed, the external fixator is removed. This information is not intended to replace advice given to you by your health care provider. Make sure you discuss any questions you have with your health care provider. Document Released: 02/23/2012 Document Revised: 08/10/2019 Document Reviewed: 08/13/2019 [employer] Patient Education 2020 [employer] Additional Information VACCINATE! IT SAVES LIVES! Members of the community who have not yet received the COVID-19 vaccine and would like to receive it can visit one of [facility] vaccine clinics. There are many vaccine clinic locations within the [facility]. For locations and available times, please visit https://gettheshot.coronavirus.[place].gov/. It is important to note that some COVID mobile vaccine clinics are held outdoors and may be canceled in rainy or stormy conditions. To learn more about pediatric vaccinations (ages 5-11), we invite you to visit the [facility] webpage. https://www.[facility].org/pages/8366-Fhukg-Gxpybupyigj-Qluuafjehd-Xgmul-Ebz stions.htmlTo learn more about the COVID-19 vaccine, we invite you to visit the CDC website for a list of frequently asked questions.https://www.cdc.gov/coronavirus/2019-ncov/vaccines/faq.html [facility] Patient Portal Access Instructions: Stay connected with your healthcare team and access your personal medical information anytime with the [facility] Patient Portal. Please follow the directions below to create your [facility] account: 1.Access the email account you provided upon registration to the hospital/physician office.2.Look for an invitation email from [facility].3.Open the email and access the invitation link: AcceptInvitation to [facility].4.Fill in the required mccoy to create your account. To access your account, visit [email or web address]. Click the blue button labeled Access Patient Portal and then log in with the username and password that you created in the steps above. You will be able to view your test results, lab results, a summary of your visits, upcoming appointments and more. There is also a convenient messaging option where you can send secure messages to your p rovider. In addition, you will have the ability to download any documents or summaries to your computer and/or send the information securely to a physician. Remember that your healthcare information is confidential, so carefully consider who you will allowto register on the [facility] Patient Portal for access to your information. You can also access the [facility] Patient Portal on the [place] [employer] nestor. Simply click on Patient Portal and then log into your account. If you would like to receive a full copy of your medical records, please contact the [facility] Medical Records Department by calling [phone], Tuesday through Tuesday between 8 a.m. and 4:30 p.m. HOW TO SAFELY DISPOSE OF PRESCRIPTION MEDICATIONS Please use one of the following methods to safely dispose of your unused medications. 1.Use a drug disposal kit: the drug disposal pouch allows you to safely discard your old and unuseddrugs. Ask your nurse to give you one when you are discharged.2.Visit a local take-back location: Many local pharmacies and police departments have programs that collect old and unwanted prescriptiondrugs. Call your local pharmacy or go to http://bit.[place] [employer]/8J3Lb1s to find one close to you.3.Make use of household items: Use cat litter or old coffee grounds to dispose medications if other options arenot available. Mix your drugs with these household products, seal them in an airtight container andthrow it into the garbage. Call [facility]: [phone] to be sure your drugs can be disposed of in this way. Some medicines may require a different approach.4.Never flush your medications down the toilet. IF YOU HAVE BEEN PRESCRIBED AN OPIOID FOR PAIN If you have been prescribed an opioid (such as hydrocodone, oxycodone or morphine), it is critical to understand the possible side effects and risks of opioid pain medications. Even when taken as directed, opioids can have several side effects including: Tolerance, meaning you might need to take more of a medication for the same pain relief. Nausea, vomiting and/or constipation. Sleepiness, dizziness, dry mouth, confusion, depression or itching. Physical dependence, meaning you have withdrawal symptoms when a medication is stopped, can develop within a few days. KNOW YOUR RESPONSIBILITIES It is important to know exactly how much and how often to take the opioid pain medications you are prescribed. Never take opioids in higher amounts or more often than prescribed. Do not combine opioids with alcohol or other drugs that cause drowsiness, such as benzodiazepines, also known as benzos, including diazepam and alprazolam, muscle relaxants or sleep aids. Never sell or share prescription opioids. This is illegal. Store opioids in a secure place and out of reach of others (including children, family, friends and visitors). The last page of this document has been signed and retained as a CHART COPY. Signatures Patient Education Materials 1- [facility] General Discharge Guidelines (03/11/2023) (Custom) How to Care for an External Fixator Medication Leaflets My discharge plan and instructions have been reviewed and explained to me and I,HECTOR SANCHEZ understand my current condition and have read and understand these discharge instructions. I have received a written copy of the plan/instructions. If I have questions, I am aware that I should contactmy doctor. 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 Stable at the time of PACU discharge. Assessment Postanesthesia assessment Vitals: Vital signs from flowsheet : Vital Signs 04/29/2023 12:07 EDT Temperature Temporal Artery 36.2 DegC Heart Rate Monitored 78 bpm Respiratory Rate 16 br/min Systolic Blood Pressure Non-Invasive 133 mmHg Diastolic Blood Pressure Non-Invasive 67 mmHg Mean Arterial Pressure (NBP) 86 mmHg 04/29/2023 11:54 EDT Heart Rate Monitored 75 bpm Respiratory Rate 14 br/min Systolic Blood Pressure Non-Invasive 131 mmHg Diastolic Blood Pressure Non-Invasive 64 mmHg Mean Arterial Pressure (NBP) 84 mmHg 04/29/2023 11:39 EDT Heart Rate Monitored 84 bpm Respiratory Rate 14 br/min Systolic Blood Pressure Non-Invasive 145 mmHg HI Diastolic Blood Pressure Non-Invasive 69 mmHg Mean Arterial Pressure (NBP) 90 mmHg 04/29/2023 11:23 EDT Heart Rate Monitored 76 bpm Respiratory Rate 14 br/min Systolic Blood Pressure Non-Invasive 136 mmHg Diastolic Blood Pressure Non-Invasive 70 mmHg Mean Arterial Pressure (NBP) 91 mmHg 04/29/2023 11:10 EDT Temperature Temporal Artery 36.7 DegC Heart Rate Monitored 63 bpm Respiratory Rate 12 br/min LOW Systolic Blood Pressure Non-Invasive 101 mmHg Diastolic Blood Pressure Non-Invasive 49 mmHg Mean Arterial Pressure (NBP) 64 mmHg 04/29/2023 11:05 EDT Respiratory Rate - Anes 0 br/min br/min 04/29/2023 11:02 EDT Systolic Blood Pressure Non-Invasive 90 mmHg mmHg Diastolic Blood Pressure Non-Invasive 43 mmHg mmHg 04/29/2023 11:00 EDT Temperature (Route Not Specified) 36.43 DegC DegC Heart Rate Monitored 56 bpm bpm Respiratory Rate - Anes 13 br/min br/min 04/29/2023 10:59 EDT Systolic Blood Pressure Non-Invasive 88 mmHg mmHg Diastolic Blood Pressure Non-Invasive 41 mmHg mmHg 04/29/2023 10:56 EDT Systolic Blood Pressure Non-Invasive 86 mmHg mmHg Diastolic Blood Pressure Non-Invasive 43 mmHg mmHg 04/29/2023 10:55 EDT Temperature (Route Not Specified) 36.38 DegC DegC Heart Rate Monitored 57 bpm bpm Respiratory Rate - Anes 14 br/min br/min 04/29/2023 10:53 EDT Systolic Blood Pressure Non-Invasive 94 mmHg mmHg Diastolic Blood Pressure Non-Invasive 47 mmHg mmHg 04/29/2023 10:50 EDT Temperature (Route Not Specified) 36.28 DegC DegC Heart Rate Monitored 62 bpm bpm Respiratory Rate - Anes 15 br/min br/min Systolic Blood Pressure Non-Invasive 92 mmHg mmHg Diastolic Blood Pressure Non-Invasive 54 mmHg mmHg 04/29/2023 10:47 EDT Systolic Blood Pressure Non-Invasive 97 mmHg mmHg Diastolic Blood Pressure Non-Invasive 52 mmHg mmHg 04/29/2023 10:45 EDT Temperature (Route Not Specified) 36.36 DegC DegC Heart Rate Monitored 64 bpm bpm Respiratory Rate - Anes 16 br/min br/min 04/29/2023 10:44 EDT Systolic Blood Pressure Non-Invasive 104 mmHg mmHg Diastolic Blood Pressure Non-Invasive 49 mmHg mmHg 04/29/2023 10:41 EDT Systolic Blood Pressure Non-Invasive 104 mmHg mmHg Diastolic Blood Pressure Non-Invasive 51 mmHg mmHg 04/29/2023 10:40 EDT Temperature (Route Not Specified) 36.47 DegC DegC Heart Rate Monitored 61 bpm bpm Respiratory Rate - Anes 14 br/min br/min 04/29/2023 10:38 EDT Systolic Blood Pressure Non-Invasive 107 mmHg mmHg Diastolic Blood Pressure Non-Invasive 54 mmHg mmHg 04/29/2023 10:35 EDT Temperature (Route Not Specified) 36.59 DegC DegC Heart Rate Monitored 66 bpm bpm Respiratory Rate - Anes 0 br/min br/min Systolic Blood Pressure Non-Invasive 97 mmHg mmHg Diastolic Blood Pressure Non-Invasive 47 mmHg mmHg 04/29/2023 10:32 EDT Systolic Blood Pressure Non-Invasive 97 mmHg mmHg Diastolic Blood Pressure Non-Invasive 48 mmHg mmHg 04/29/2023 10:30 EDT Temperature (Route Not Specified) 36.74 DegC DegC Heart Rate Monitored 69 bpm bpm Respiratory Rate - Anes 9 br/min br/min 04/29/2023 10:29 EDT Systolic Blood Pressure Non-Invasive 112 mmHg mmHg Diastolic Blood Pressure Non-Invasive 56 mmHg mmHg 04/29/2023 10:26 EDT Systolic Blood Pressure Non-Invasive 119 mmHg mmHg Diastolic Blood Pressure Non-Invasive 69 mmHg mmHg 04/29/2023 10:25 EDT Heart Rate Monitored 78 bpm bpm Respiratory Rate - Anes 0 br/min br/min 04/29/2023 10:24 EDT Systolic Blood Pressure Non-Invasive 154 mmHg mmHg Diastolic Blood Pressure Non-Invasive 65 mmHg mmHg 04/29/2023 10:20 EDT Respiratory Rate - Anes 7 br/min br/min 04/29/2023 10:14 EDT Heart Rate Monitored 79 bpm bpm Systolic Blood Pressure Non-Invasive 152 mmHg mmHg Diastolic Blood Pressure Non-Invasive 59 mmHg mmHg 04/29/2023 10:12 EDT Heart Rate Monitored 75 bpm bpm 04/29/2023 10:08 EDT Heart Rate Monitored 80 bpm bpm 04/29/2023 10:07 EDT Systolic Blood Pressure Non-Invasive 163 mmHg mmHg Diastolic Blood Pressure Non-Invasive 70 mmHg mmHg 04/29/2023 9:14 EDT Temperature Temporal Artery 35.9 DegC Peripheral Pulse Rate 78 bpm Respiratory Rate 16 br/min Systolic Blood Pressure Non-Invasive 134 mmHg Diastolic Blood Pressure Non-Invasive 78 mmHg , Oxygen Therapy : Oxygen Therapy & Oxygenation Information 04/29/2023 12:07 EDT Oxygen Therapy Room air Oxygen Saturation 95 % 04/29/2023 11:54 EDT Oxygen Therapy Room air Oxygen Saturation 97 % 04/29/2023 11:48 EDT Oxygen Therapy Room air Oxygen Saturation 100 % Oxygen Flow Rate DC 04/29/2023 11:39 EDT Oxygen Therapy Nasal cannula 0L-6L Oxygen Saturation 100 % Oxygen Flow Rate 4 04/29/2023 11:23 EDT Oxygen Therapy Nasal cannula 0L-6L Oxygen Saturation 100 % Oxygen Flow Rate 4 04/29/2023 11:10 EDT Oxygen Therapy Nasal cannula 0L-6L Oxygen Saturation 100 % Oxygen Flow Rate 4 04/29/2023 11:00 EDT Oxygen Saturation 99 % % 04/29/2023 10:55 EDT Oxygen Saturation 99 % % 04/29/2023 10:50 EDT Oxygen Saturation 99 % % 04/29/2023 10:45 EDT Oxygen Saturation 99 % % 04/29/2023 10:40 EDT Oxygen Saturation 99 % % 04/29/2023 10:35 EDT Oxygen Saturation 100 % % 04/29/2023 10:30 EDT Oxygen Saturation 100 % % 04/29/2023 10:25 EDT Oxygen Saturation 100 % % 04/29/2023 10:10 EDT Oxygen Saturation 100 % % 04/29/2023 10:05 EDT Oxygen Saturation 100 % % 04/29/2023 10:00 EDT Oxygen Saturation 100 % % 04/29/2023 9:14 EDT Oxygen Therapy Room air Oxygen Saturation 98 % . Mental status: at preoperative baseline. Respiratory function: lungs are clear to auscultation, respirations are non-labored. Respiratory support: none. CV function: Normal rate. Cardiovascular support: none. Pain. Nausea status: see nursing documentation of medications. Postoperative hydration status: within normal limits. Digitally Signed by CARMELA MENDES MD on 04/29/2023 12:44 PM [id number] Anesthesiology Consult note Patient: HECTOR SANCHEZ Age: 62 years Sex: Female : 1960 Associated Diagnoses: None Author: CARMELA MENDES MD Preoperative Information > 8 hours Anesthesia history Patient's history: negative. Family's history: negative. Health Status Allergies: Allergic Reactions (Selected) Severity Not Documented Contrast dye- Hives., Allergies (1) ActiveReaction Contrast dyeHives Current medications: (Selected) Inpatient Medications Ordered Lactated Ringers Infusion 1,000 mL: 20 mL/hr, Intravenous Prescriptions Prescribed Lovenox 40 mg/0.4 mL injectable solution: 40 mg, 0.4 mL, Subcutaneous, qDay, for 14 day(s), 5.6 mL,0 Refill(s) Williamson 325- 5 mg oral tablet: 1 tab(s), Oral, q6h, for 7 day(s), May take 1-2 tablets / dose, PRN: for pain, 28 tab(s), 0 Refill(s) Documented Medications Documented Aleve 220 mg oral tablet: 440 mg, 2 tab(s), Oral, BID, PRN: as needed for pain Zofran 4 mg oral tablet: 4 mg, 1 tab(s), Oral, q6h, PRN: Nausea/Vomiting, 20 tab(s), 0 Refill(s), Medications (1) Active Scheduled: (0) Continuous: (1) Lactated Ringers 1,000 mL 1,000 mL, Intravenous, 20 mL/hr PRN: (0) Problem list: Active Problems (1) Fall Histories Past Medical History: No active or resolved past medical history items have been selected or recorded. Procedure history: Arthroscopic knee operation ([id number]) on 03/04/2020 at 59 Years. Tonsillectomy ([id number]). Tubal ligation ([id number]). Appendectomy ([id number]). Operation on ganglion cyst ([id number]). 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 Physical Examination Measurements from flowsheet : Measurements 04/29/2023 9:14 EDT Height 170.2 cm Height in inches 67 inch(es) Admission Weight 105.0 kg Weight Lbs 231 lb [place] Body Weight 61.62 kg Type of Scale Used Bed scale Admission Body Mass Index 36.25 m2 General: Alert and oriented, No acute distress. Airway: Mallampati classification: II (soft palate, fauces, uvula visible). Head: Normocephalic, Atraumatic. Dentition Evaluation: Intact, Own teeth. Respiratory: Lungs are clear to auscultation, Respirations are non-labored. Cardiovascular: Normal rate. Heart Sounds: Normal. Gastrointestinal: Soft. Musculoskeletal Normal range of motion. Integumentary: Intact. Neurologic: Alert. Review / Management Documentation reviewed: Current records, Reviewed prior records. Assessment and Plan [place] [employer] (ASA) physical status classification: Class II. Anesthetic Preoperative Plan Anesthetic technique: General. Induction: intravenously. Maintenance airway: Laryngeal mask airway. Postoperative pain management: Per surgeon. Risks discussed: nausea, vomiting, headache, sore throat, dental injury, hypotension, allergic reaction, serious complications. Informed consent: signed by patient. Digitally Signed by CARMELA MENDES MD on 04/29/2023 12:43 PM [id number] Discharge instructions Patient Education 11/20/2021 10:46:11 2-OPD Minor Surgery (Steri-Strips) (04/2018) (CUSTOM) Minor Surgery Discharge Instructions __X__ Keep the incision clean and dry until tomorrow and then you may shower. Leave the steri strips on until your follow-up appointment or until the edges begin to curl. No soaking the incision sitein a bathtub or hot tub until the follow-up appointment. __X__ The incision can be left open to air starting tomorrow. If clothing irritates the site, then a dressing may be applied and changed daily. __X__ Gently cleanse the incision site with soap and water daily and pat dry. __X__ Report any fever, redness or severe pain of the operative area to your doctor promptly. __X__Over the counter Tylenol or ibuprofen may be used for incision site pain. Follow the package instructions. __X__ Make your follow-up appointment as instructed If you have any questions, please call your doctor at the number listed on your follow-up instructions. Follow all instructions given to you by your doctor. Follow Up Care 11/05/2021 16:22:40 With:CESARIO WONG MD, [facility], Surgery Address: [address] [place] [address] [address] [facility] [address] [place] [phone] When: Unknown [facility] Evaluation + Plan note Future Appointments Appointment Date:12/03/2021 08:40:00 AM Scheduled Provider:CESARIO WONG MD Location:GEN SURG [facility] Appointment Type:GS OV Post Op [facility] Evaluation + Plan note Future Appointments Appointment Date:05/12/2022 05:30:00 PM Scheduled Provider: Location:[facility] Appointment Type:PT Treatment - [facility] Evaluation + Plan note Future Appointments Appointment Date:10/01/2024 03:00:00 PM Scheduled Provider:Timothy Luevano PT Location:[facility] Appointment Type:PT Outpatient Evaluation Appointment Date:10/01/2024 03:00:00 PM Scheduled Provider:Timothy Luevano PT Location:[facility] Appointment Type:PT Outpatient Evaluation [facility] Evaluation noteNo assessment information available [facility] Work Phone: Evaluvovlk note* Diagnosis Sinobronchitis- Primary Unspecified sinusitis (chronic) documented in this encounter [facility] course Narrative No data available for this section [facility] Hospital Discharge instructions No data available for this section [facility] Progress note No data available for this section [facility] Chief Complaint and Reason for Visit Chief Complaint HEADACHE Summary Purpose Family History No Family History Records Found No data available for this section No data available for this section No data available for this section No Family History Records Found No data available for this section No Family History Records Found No data available for this section No data available for this section No data available for this section No data available for this section No data available for this section No Family History Records FoundNo Family History Records Found Advance Directives No Advanced Directives Records FoundNo Advanced Directives Records FoundNo Advanced Directives Records FoundNo Advanced Directives Records FoundNo Advanced Directives Records Found Additional Source Comments Care Team (unrecognized sect ion and content) Business Executive Relationship Specialty Start Date End Date [place] PCP - General 09/12/24 Goals (unrecognized section and content) Goals may be documented in a n alternate section INFORMATION SOURCE (unrecogn ized section and content) DATE CREATED AUTHOR 04/22/2022 [facility] DATE CREATED AUTHOR AUTHOR'S ORGANIZ ATION 02/10/2024 [facility] DATE CREATED AUTHOR AUTHOR'S ORGANIZ ATION 09/14/2024 [facility] DATE CREATED AUTHOR AUTHOR'S ORGANIZ ATION 02/17/2025 [facility] DATE CREATED AUTHOR AUTHOR'S ORGANIZ ATION 02/26/2025 [facility] Care Team (unrecognized sect ion and content) Care Team Personnel Name: Yoli Alexandra Clerdickson Michaud PT Position: P3 Scheduling - Rag Willow Operator Advanced Member Role: Other Name: ARUNA BAR MD Member Role: Primary Care Physician Address: Address: [address] [place] [address] Name: CESARIO WONG MD Position: P4 Physician - General Surgery Member Role: Surgeon Address: Address: [address] [place] [address] Care Team Related Persons Name: JULIAN SANCHEZ Address: Home [address] [place] [address] Care Team Personnel Name: Yoli Alexandra PT Position: P3 Scheduling - Rag Willow Operator Advanced Member Role: Other Name: ARUNA BAR MD Member Role: Primary Care Physician Address: Address: [address] [place] [address] Name: CESARIO WONG MD Position: P4 Physician - General Surgery Member Role: Surgeon Address: Address: [address] [place] [address] Care Team Related Persons Name: JULIAN SANCHEZ Address: [address] Source Comments (unrecognize d section and content) In the event this informatio n is protected by the Federal Confidentiality of Alcohol and Drug Abuse Patient Records regulations: The Federal rules restrict any use of the information to criminally investigate or prosecute any alcohol or drug abuse patient.[facility] Reason for Visit (unrecogniz ed section and content) Reason Comments Cough Cough, left ear pres sure, sore throat and nasal drainage x 3 days FOR RECORDS PERTAINING TO PATIENTS WHO ARE OR HAVE BEEN ENROLLED IN A CHEMICAL DEPENDENCY/SUBSTANCEABUSE PROGRAM, SOME INFORMATION MAY BE OMITTED. This clinical summary was aggregated from multiple sources. Caution should be exercised in using it in the provision of clinical care. This summary normalizes information from multiple sources, and as a consequence, information in this document may materially change the coding, format and clinical context of patient data. In addition, data may be omitted in some cases. CLINICAL DECISIONS SHOULD BE BASED ON THE PRIMARY CLINICAL RECORDS. [facility] [employer] [facility] provides no warranty or guarantee of the accuracy or completeness of information in this document.
[2025-03-06 10:08] LABS: HPV APTIMA, High Risk Negative (Negative)
== END | disposition home or self-care (01) ==
LOC: LABSPEC 15:17
PROVIDERS: PCP Family Medicine
DX: Z12.4 Encounter for screening for malignant neoplasm of cervix (principal)
CPT/HCPCS: 87624; 88175; G0145